=== PATIENT | male | born 1985 | race Caucasian/White ===

== ENCOUNTER 2017-09-07 12:22 | Inpatient (IN) | payer OTHER, MEDICAID ==
[2017-09-07] MEDS: diphenhydrAMINE INJ 50MG/ML VIAL (J1200) IM (12:41)
[2017-09-07] MEDS: HALOPERIDOL 5 MG/ML VIAL (J1630) IM (12:42)
[2017-09-07] MEDS: LORazepam 2 MG/ML VIAL (J2060) IM (12:42)
[2017-09-07 13:39] LABS: HEMATOCRIT 41.8 % (42.0-52.0); HEMOGLOBIN 14.6 g/dl (14.0-18.0); MEAN CORPUSCULAR HEMOGLOBIN 28.7 pg (27.0-33.0); MEAN CORPUSCULAR HGB CONC 34.9 g/dl (32.0-36.5); MEAN CORPUSCULAR VOLUME 82.3 fl (80.0-96.0); PLATELET COUNT, AUTOMATED 225 10^3/uL (150-450); RED BLOOD COUNT 5.08 10^6/uL (4.30-6.10); WHITE BLOOD COUNT 9.6 10^3/uL (4.0-10.0)
[2017-09-07 14:11] LABS: ACETAMINOPHEN LEVEL < 2.0 UG/ML (10.0-30.0); ALBUMIN/GLOBULIN RATIO 1.33 (1.00-1.93); ALKALINE PHOSPHATASE 56 U/L (45-117); ALT/SGPT 15 U/L (12-78); ANION GAP 7 MEQ/L (8-16); AST/SGOT 14 U/L (7-37); BILIRUBIN,DIRECT 0.1 MG/DL (0.0-0.2); BILIRUBIN,TOTAL 0.5 MG/DL (0.2-1.0); BLOOD UREA NITROGEN 14 MG/DL (7-18); CALCIUM LEVEL 8.3 MG/DL (8.5-10.1); CARBON DIOXIDE LEVEL 25 MEQ/L (21-32); CHLORIDE LEVEL 111 MEQ/L (98-107); CREATININE FOR GFR 0.65 MG/DL (0.70-1.30); ETHYL ALCOHOL (ETHANOL) 0.003 % (0.000-0.010); GLOMERULAR FILTRATION RATE > 60.0 (>60); GLUCOSE, FASTING 94 MG/DL (70-100); POTASSIUM SERUM 3.7 MEQ/L (3.5-5.1); SODIUM LEVEL 143 MEQ/L (136-145); THYROID STIMULATING HORMONE 0.843 uIU/ML (0.358-3.740)
[2017-09-07 14:51] LABS: AMPHETAMINES LEVEL URINE NEGATIVE (NEGATIVE); BARBITURATES URINE NEGATIVE (NEGATIVE); BENZODIAZEPINES URINE NEGATIVE (NEGATIVE); CANNABINOIDS URINE POSITIVE (NEGATIVE); COCAINE METABOLITE URINE NEGATIVE (NEGATIVE); METHADONE URINE NEGATIVE (NEGATIVE); OPIATES URINE NEGATIVE (NEGATIVE); PHENCYCLIDINE URINE NEGATIVE (NEGATIVE)
[2017-09-07] MEDS ORDERED: MOM 30ML SUSPENSION UDC PO (15:00)
[2017-09-07] MEDS ORDERED: MAALOX 30 ML SUSP *UDC PO (15:00)
[2017-09-07] MEDS: diphenhydrAMINE 50 MG CAP PO (16:50)
[2017-09-07] MEDS: LORazepam 1 MG TAB PO (21:19)
[2017-09-07] MEDS: HALOPERIDOL 5 MG TAB PO (21:19)
[2017-09-07] MEDS: diphenhydrAMINE 25 MG CAP PO (21:19)
[2017-09-08] MEDS: PALIPERIDONE 3 MG ER TAB (INVEGA) PO ×2 (09:00→21:00)
[2017-09-08] MEDS: BENZTROPINE 1 MG TAB PO ×2 (09:00→21:00)
[2017-09-08] MEDS: LORazepam 2 MG/ML VIAL (J2060) IM (12:15)
[2017-09-08] MEDS: OLANZapine INTRAMUSCULAR 10 MG VIAL (S0166) IM (12:19)
[2017-09-08] MEDS: diphenhydrAMINE INJ 50MG/ML VIAL (J1200) IM (12:20)
[2017-09-09 08:18] LABS: CHOLESTEROL LEVEL 157 MG/DL (<200); CHOLESTEROL RISK RATIO 5.413 (<5); HDL CHOLESTEROL 29 MG/DL (>40); NON-HDL-C 128 MG/DL; TRIGLYCERIDES LEVEL 85 MG/DL (<150)
[2017-09-09] MEDS: BENZTROPINE 1 MG TAB PO ×2 (08:42→21:00)
[2017-09-09] MEDS: PALIPERIDONE 3 MG ER TAB (INVEGA) PO (08:42)
[2017-09-09] MEDS: ARIPiprazole 10 MG TAB PO ×2 (10:47→21:00)
[2017-09-09] MEDS: ARIPiprazole MONOHYDRATE 400 MG INJ (ABILIFY)(J0401) IM (11:22)
[2017-09-09] MEDS: LORazepam 2 MG TAB PO (14:37)
[2017-09-09] MEDS: NICOTINE 21MG/24HR 1 EA TRANSDERMAL TD (17:57)
[2017-09-10] MEDS: BENZTROPINE 1 MG TAB PO ×2 (09:00→21:00)
[2017-09-10] MEDS ORDERED: NICOTINE 21MG/24HR 1 EA TRANSDERMAL TD (09:00)
[2017-09-10] MEDS: NICOTINE 21MG/24HR 1 EA TRANSDERMAL TD (10:12)
[2017-09-10] MEDS: ARIPiprazole 10 MG TAB PO ×2 (10:12→21:36)
[2017-09-10] MEDS: traZODone 50 MG TAB PO (21:36)
[2017-09-11] MEDS: ARIPiprazole 10 MG TAB PO ×2 (08:28→20:32)
[2017-09-11] MEDS: NICOTINE 21MG/24HR 1 EA TRANSDERMAL TD (08:29)
[2017-09-11] MEDS: BENZTROPINE 1 MG TAB PO ×2 (08:30→21:00)
[2017-09-11] MEDS: traZODone 50 MG TAB PO (20:32)
[2017-09-12] MEDS: ARIPiprazole 10 MG TAB PO ×2 (08:27→22:05)
[2017-09-12] MEDS: NICOTINE 21MG/24HR 1 EA TRANSDERMAL TD (08:27)
[2017-09-12] MEDS: BENZTROPINE 1 MG TAB PO ×2 (08:28→21:00)
[2017-09-13] MEDS: BENZTROPINE 1 MG TAB PO ×2 (09:00→21:00)
[2017-09-13] MEDS: NICOTINE 21MG/24HR 1 EA TRANSDERMAL TD (09:17)
[2017-09-13] MEDS: ARIPiprazole 10 MG TAB PO ×2 (09:17→21:24)
[2017-09-13] MEDS: LORazepam 2 MG TAB PO (09:30)
[2017-09-13] MEDS: OLANZapine 10 MG TAB PO (09:30)
[2017-09-14] MEDS: BENZTROPINE 1 MG TAB PO ×2 (08:59→21:00)
[2017-09-14] MEDS: ARIPiprazole 10 MG TAB PO ×2 (09:00→22:08)
[2017-09-14] MEDS ORDERED: **PENDING PPD ENTRY XX (09:00)
[2017-09-14] MEDS: NICOTINE 21MG/24HR 1 EA TRANSDERMAL TD (09:01)
[2017-09-14] MEDS ORDERED: TUBERCULIN PPD 5 UNITS/0.1 ML ID (12:30)
[2017-09-14] MEDS: OLANZapine 10 MG TAB PO (22:07)
[2017-09-15] MEDS: ARIPiprazole 10 MG TAB PO ×2 (10:00→21:00)
[2017-09-15] MEDS: NICOTINE 21MG/24HR 1 EA TRANSDERMAL TD (10:01)
[2017-09-15] MEDS: BENZTROPINE 1 MG TAB PO ×2 (10:01→21:00)
[2017-09-15] MEDS: LORazepam 2 MG TAB PO (16:50)
[2017-09-15] MEDS: TUBERCULIN PPD 5 UNITS/0.1 ML ID (20:00)
[2017-09-15] MEDS: OLANZapine 10 MG TAB PO (21:00)
[2017-09-16] MEDS: NICOTINE 21MG/24HR 1 EA TRANSDERMAL TD (08:13)
[2017-09-16] MEDS: ARIPiprazole 10 MG TAB PO ×2 (08:13→20:06)
[2017-09-16] MEDS: LORazepam 2 MG TAB PO (08:13)
[2017-09-16] MEDS: BENZTROPINE 1 MG TAB PO ×2 (08:14→20:05)
[2017-09-16] MEDS ORDERED: PPD DOCUMENTATION ENTRY MISC XX (10:00)
[2017-09-16] MEDS ORDERED: OLANZapine 5 MG TAB PO (10:30)
[2017-09-16] MEDS: OLANZapine 10 MG TAB PO ×3 (12:00→21:47)
[2017-09-17] MEDS: ARIPiprazole 10 MG TAB PO ×2 (08:29→21:27)
[2017-09-17] MEDS: OLANZapine 10 MG TAB PO ×3 (08:29→21:26)
[2017-09-17] MEDS: NICOTINE 21MG/24HR 1 EA TRANSDERMAL TD (08:30)
[2017-09-17] MEDS: BENZTROPINE 1 MG TAB PO ×2 (09:00→21:00)
[2017-09-17] MEDS ORDERED: PPD DOCUMENTATION ENTRY MISC XX (20:00)
[2017-09-18] MEDS: ARIPiprazole 10 MG TAB PO (08:23)
[2017-09-18] MEDS: BENZTROPINE 1 MG TAB PO (08:24)
[2017-09-18] MEDS: NICOTINE 21MG/24HR 1 EA TRANSDERMAL TD (08:24)
[2017-09-18] MEDS: OLANZapine 10 MG TAB PO (10:14)
== END 2017-09-18 13:00 | disposition home or self-care (01) | DRG 750 ==
LOC: M ED 12:22 → M ED INP 14:49 → M PSY 16:20
DX: F20.0 Paranoid schizophrenia (principal); F41.9 Anxiety disorder, unspecified; F12.90 Cannabis use, unspecified, uncomplicated; F17.200 Nicotine dependence, unspecified, uncomplicated; Z79.899 Other long term (current) drug therapy

== ENCOUNTER 2017-12-25 10:11 | Inpatient (IN) | payer OTHER ==
[2017-12-25] MEDS: NICOTINE 21MG/24HR 1 EA TRANSDERMAL TD (09:00)
[2017-12-25] MEDS ORDERED: diphenhydrAMINE INJ 50MG/ML VIAL (J1200) As Ordered (10:15)
[2017-12-25] MEDS ORDERED: HALOPERIDOL 5 MG/ML VIAL (J1630) As Ordered (10:16)
[2017-12-25] MEDS: diphenhydrAMINE INJ 50MG/ML VIAL (J1200) IM (10:26)
[2017-12-25] MEDS: HALOPERIDOL 5 MG/ML VIAL (J1630) IM (10:26)
[2017-12-25 11:18] LABS: HEMATOCRIT 46.2 % (42.0-52.0); HEMOGLOBIN 16.3 g/dl (13.5-17.5); MEAN CORPUSCULAR HEMOGLOBIN 29.2 pg (27.0-33.0); MEAN CORPUSCULAR HGB CONC 35.3 g/dl (32.0-36.5); MEAN CORPUSCULAR VOLUME 82.8 fl (80.0-96.0); PLATELET COUNT, AUTOMATED 222 10^3/uL (150-450); RED BLOOD COUNT 5.58 10^6/uL (4.30-6.10); RED CELL DISTRIBUTION WIDTH 13.1 % (11.5-14.5); WHITE BLOOD COUNT 15.1 10^3/uL (4.0-10.0)
[2017-12-25] MEDS: LORazepam 2 MG TAB PO (11:20)
[2017-12-25 11:48] LABS: ALBUMIN 4.8 GM/DL (3.2-5.2); ALBUMIN/GLOBULIN RATIO 1.41 (1.00-1.93); ALKALINE PHOSPHATASE 57 U/L (45-117); ALT/SGPT 24 U/L (12-78); ANION GAP 10 MEQ/L (8-16); AST/SGOT 14 U/L (7-37); BILIRUBIN,DIRECT 0.2 MG/DL (0.0-0.2); BILIRUBIN,TOTAL 0.7 MG/DL (0.2-1.0); BLOOD UREA NITROGEN 15 MG/DL (7-18); CALCIUM LEVEL 8.8 MG/DL (8.5-10.1); CARBON DIOXIDE LEVEL 22 MEQ/L (21-32); CHLORIDE LEVEL 108 MEQ/L (98-107); CREATININE FOR GFR 0.94 MG/DL (0.70-1.30); GLOMERULAR FILTRATION RATE > 60.0 (>60); GLUCOSE, FASTING 103 MG/DL (70-100); POTASSIUM SERUM 4.1 MEQ/L (3.5-5.1); SALICYLATE LEVEL < 1.7 MG/DL (5.0-30.0); SODIUM LEVEL 140 MEQ/L (136-145); TOTAL PROTEIN 8.2 GM/DL (6.4-8.2)
[2017-12-25 11:49] LABS: ACETAMINOPHEN LEVEL < 2.0 UG/ML (10.0-30.0); ETHYL ALCOHOL (ETHANOL) < 0.003 % (0.000-0.010)
[2017-12-25 12:09] LABS: AMPHETAMINES LEVEL URINE NEGATIVE (NEGATIVE); BARBITURATES URINE NEGATIVE (NEGATIVE); BENZODIAZEPINES URINE NEGATIVE (NEGATIVE); CANNABINOIDS URINE POSITIVE (NEGATIVE); COCAINE METABOLITE URINE NEGATIVE (NEGATIVE); METHADONE URINE NEGATIVE (NEGATIVE); OPIATES URINE NEGATIVE (NEGATIVE); PHENCYCLIDINE URINE NEGATIVE (NEGATIVE)
[2017-12-25] MEDS ORDERED: MOM 30ML SUSPENSION UDC PO (15:45)
[2017-12-25] MEDS ORDERED: MAALOX 30 ML SUSP *UDC PO (15:45)
[2017-12-25] MEDS ORDERED: ACETAMINOPHEN TAB 650MG DOSE (2X325MG) PO (15:45)
[2017-12-26] MEDS: LORazepam 1 MG TAB PO ×2 (07:57→18:11)
[2017-12-26] MEDS: NICOTINE 21MG/24HR 1 EA TRANSDERMAL TD (07:57)
[2017-12-26] MEDS: OLANZapine ORAL DISINTEGRATING TAB 5MG PO ×2 (07:57→18:11)
[2017-12-26] MEDS: ATOMOXETINE HCL 40 MG CAP (STRATTERA) PO (19:11)
[2017-12-27] MEDS: ATOMOXETINE HCL 40 MG CAP (STRATTERA) PO (08:03)
[2017-12-27] MEDS: NICOTINE 21MG/24HR 1 EA TRANSDERMAL TD (08:03)
[2017-12-27] MEDS: OLANZapine ORAL DISINTEGRATING TAB 5MG PO ×2 (09:10→12:25)
[2017-12-27] MEDS: LORazepam 1 MG TAB PO (12:12)
[2017-12-28 06:55] LABS: BASO # 0.1 10^3/uL (0.0-0.2); BASO % 0.6 % (0.0-1.0); EOS # 0.4 10^3/uL (0.0-0.50); EOS % 5.3 % (0.0-3.0); HEMATOCRIT 43.2 % (42.0-52.0); HEMOGLOBIN 15.3 g/dl (13.5-17.5); IMMATURE GRANULOCYTE % 0.1 % (0-3.0); LYMPH # 2.6 10^3/uL (1.5-4.5); LYMPH % 34.2 % (24.0-44.0); MEAN CORPUSCULAR HEMOGLOBIN 29.3 pg (27.0-33.0); MEAN CORPUSCULAR HGB CONC 35.4 g/dl (32.0-36.5); MEAN CORPUSCULAR VOLUME 82.8 fl (80.0-96.0); MONO # 0.6 10^3/uL (0.0-0.8); NEUTROPHILS % 51.8 % (36.0-66.0); PLATELET COUNT, AUTOMATED 226 10^3/uL (150-450); RED BLOOD COUNT 5.22 10^6/uL (4.30-6.10); RED CELL DISTRIBUTION WIDTH 12.9 % (11.5-14.5); WHITE BLOOD COUNT 7.7 10^3/uL (4.0-10.0)
[2017-12-28] MEDS: NICOTINE 21MG/24HR 1 EA TRANSDERMAL TD (08:18)
[2017-12-28] MEDS: ATOMOXETINE HCL 40 MG CAP (STRATTERA) PO (08:18)
[2017-12-28] MEDS: ARIPiprazole MONOHYDRATE 400 MG INJ (ABILIFY)(J0401) IM (12:13)
[2017-12-28] MEDS: OLANZapine ORAL DISINTEGRATING TAB 5MG PO (19:27)
[2017-12-28] MEDS: LORazepam 1 MG TAB PO (19:27)
[2017-12-29] MEDS: ATOMOXETINE HCL 40 MG CAP (STRATTERA) PO (08:10)
[2017-12-29] MEDS: NICOTINE 21MG/24HR 1 EA TRANSDERMAL TD (08:10)
[2017-12-29] MEDS: LORazepam 1 MG TAB PO (08:38)
== END 2017-12-29 10:00 | disposition home or self-care (01) | DRG 750 ==
LOC: M ED 10:11 → M ED INP 12:35 → M PSY 14:38
DX: F25.0 Schizoaffective disorder, bipolar type (principal); Z91.19 Patient's noncompliance with other medical treatment and regimen; E78.5 Hyperlipidemia, unspecified; F12.10 Cannabis abuse, uncomplicated; F17.220 Nicotine dependence, chewing tobacco, uncomplicated; Z79.899 Other long term (current) drug therapy

== ENCOUNTER 2018-03-15 23:16 | Inpatient (IN) | payer OTHER ==
[2018-03-16 02:22] LABS: HEMATOCRIT 45.6 % (42.0-52.0); HEMOGLOBIN 15.8 g/dl (13.5-17.5); MEAN CORPUSCULAR HEMOGLOBIN 29.5 pg (27.0-33.0); MEAN CORPUSCULAR HGB CONC 34.6 g/dl (32.0-36.5); MEAN CORPUSCULAR VOLUME 85.1 fl (80.0-96.0); PLATELET COUNT, AUTOMATED 237 10^3/uL (150-450); RED BLOOD COUNT 5.36 10^6/uL (4.30-6.10); RED CELL DISTRIBUTION WIDTH 12.5 % (11.5-14.5)
[2018-03-16 02:44] LABS: AMPHETAMINES LEVEL URINE NEGATIVE (NEGATIVE); BARBITURATES URINE NEGATIVE (NEGATIVE); BENZODIAZEPINES URINE NEGATIVE (NEGATIVE); CANNABINOIDS URINE POSITIVE (NEGATIVE); COCAINE METABOLITE URINE NEGATIVE (NEGATIVE); METHADONE URINE NEGATIVE (NEGATIVE); OPIATES URINE NEGATIVE (NEGATIVE); PHENCYCLIDINE URINE NEGATIVE (NEGATIVE)
[2018-03-16] MEDS: LORazepam 0.5 MG TAB PO (02:45)
[2018-03-16 02:53] LABS: ALBUMIN 4.4 GM/DL (3.2-5.2); ALBUMIN/GLOBULIN RATIO 1.38 (1.00-1.93); ALKALINE PHOSPHATASE 54 U/L (45-117); ALT/SGPT 19 U/L (12-78); ANION GAP 8 MEQ/L (8-16); AST/SGOT 12 U/L (7-37); BILIRUBIN,DIRECT 0.1 MG/DL (0.0-0.2); BILIRUBIN,TOTAL 0.6 MG/DL (0.2-1.0); BLOOD UREA NITROGEN 10 MG/DL (7-18); CALCIUM LEVEL 8.6 MG/DL (8.5-10.1); CARBON DIOXIDE LEVEL 29 MEQ/L (21-32); CHLORIDE LEVEL 108 MEQ/L (98-107); CREATININE FOR GFR 0.81 MG/DL (0.70-1.30); GLOMERULAR FILTRATION RATE > 60.0 (>60); GLUCOSE, FASTING 92 MG/DL (70-100); POTASSIUM SERUM 4.1 MEQ/L (3.5-5.1); SALICYLATE LEVEL < 1.7 MG/DL (5.0-30.0); SODIUM LEVEL 145 MEQ/L (136-145); TOTAL PROTEIN 7.6 GM/DL (6.4-8.2)
[2018-03-16 02:54] LABS: ACETAMINOPHEN LEVEL < 2.0 UG/ML (10.0-30.0); ETHYL ALCOHOL (ETHANOL) < 0.003 % (0.000-0.010)
[2018-03-16] MEDS ORDERED: LORazepam 1 MG TAB As Ordered (02:58)
[2018-03-16] MEDS ORDERED: MAALOX 30 ML SUSP *UDC PO (03:15)
[2018-03-16] MEDS ORDERED: MOM 30ML SUSPENSION UDC PO (03:15)
[2018-03-16] MEDS ORDERED: ACETAMINOPHEN TAB 650MG DOSE (2X325MG) PO (03:15)
[2018-03-16] MEDS: NICOTINE 21MG/24HR 1 EA TRANSDERMAL TD (10:26)
[2018-03-16] MEDS: OLANZapine ORAL DISINTEGRATING TAB 5MG PO ×3 (12:04→21:00)
[2018-03-17 06:43] LABS: HEMATOCRIT 45.3 % (42.0-52.0); HEMOGLOBIN 15.9 g/dl (13.5-17.5); MEAN CORPUSCULAR HEMOGLOBIN 29.7 pg (27.0-33.0); MEAN CORPUSCULAR HGB CONC 35.1 g/dl (32.0-36.5); MEAN CORPUSCULAR VOLUME 84.7 fl (80.0-96.0); PLATELET COUNT, AUTOMATED 243 10^3/uL (150-450); RED BLOOD COUNT 5.35 10^6/uL (4.30-6.10); RED CELL DISTRIBUTION WIDTH 12.7 % (11.5-14.5); WHITE BLOOD COUNT 8.5 10^3/uL (4.0-10.0)
[2018-03-17] MEDS: OLANZapine ORAL DISINTEGRATING TAB 5MG PO ×4 (09:00→21:00)
[2018-03-17] MEDS: NICOTINE 21MG/24HR 1 EA TRANSDERMAL TD (09:08)
[2018-03-17] MEDS: traZODone 50 MG TAB PO (23:42)
[2018-03-18] MEDS: NICOTINE 21MG/24HR 1 EA TRANSDERMAL TD (08:01)
[2018-03-18] MEDS: OLANZapine ORAL DISINTEGRATING TAB 5MG PO ×4 (08:49→21:00)
[2018-03-19] MEDS: NICOTINE 21MG/24HR 1 EA TRANSDERMAL TD (08:29)
[2018-03-19] MEDS: OLANZapine ORAL DISINTEGRATING TAB 5MG PO ×2 (08:30→12:23)
[2018-03-19] MEDS: ATOMOXETINE HCL 40 MG CAP (STRATTERA) PO (15:22)
[2018-03-19] MEDS: traZODone 50 MG TAB PO (22:22)
[2018-03-20] MEDS: NICOTINE 21MG/24HR 1 EA TRANSDERMAL TD (07:53)
[2018-03-20] MEDS: ATOMOXETINE HCL 40 MG CAP (STRATTERA) PO (07:53)
[2018-03-20] MEDS: traZODone 50 MG TAB PO (20:18)
[2018-03-20] MEDS: LORazepam 2 MG TAB PO (21:32)
[2018-03-21] MEDS: NICOTINE 21MG/24HR 1 EA TRANSDERMAL TD (10:31)
[2018-03-21] MEDS: ATOMOXETINE HCL 40 MG CAP (STRATTERA) PO (10:31)
[2018-03-21] MEDS: LORazepam 2 MG TAB PO ×2 (12:02→19:27)
[2018-03-21] MEDS: traZODone 50 MG TAB PO (21:00)
[2018-03-22] MEDS: NICOTINE 21MG/24HR 1 EA TRANSDERMAL TD (08:32)
[2018-03-22] MEDS: ATOMOXETINE HCL 40 MG CAP (STRATTERA) PO (08:32)
[2018-03-22] MEDS: LORazepam 2 MG TAB PO (15:28)
[2018-03-22] MEDS: traZODone 50 MG TAB PO (23:05)
[2018-03-23] MEDS: ATOMOXETINE HCL 40 MG CAP (STRATTERA) PO (08:13)
[2018-03-23] MEDS: NICOTINE 21MG/24HR 1 EA TRANSDERMAL TD (08:14)
[2018-03-23] MEDS: LORazepam 2 MG TAB PO (08:33)
== END 2018-03-23 15:00 | disposition home or self-care (01) | DRG 750 ==
LOC: M ED 23:16 → M ED INP 03-16 03:13 → M PSY 03-16 04:00
DX: F25.0 Schizoaffective disorder, bipolar type (principal); F17.200 Nicotine dependence, unspecified, uncomplicated; D72.829 Elevated white blood cell count, unspecified; E78.5 Hyperlipidemia, unspecified; F12.90 Cannabis use, unspecified, uncomplicated

== ENCOUNTER 2018-11-14 15:14 | Inpatient (IN) | payer OTHER ==
[~2018-11-14] VITALS: Ht 180.3 cm; Wt 85.1 kg
[~2018-11-14 15:14] MED LIST: ABIL30TA4 PO; ABIL400I IM; ATOM40CA PO; BENZ-52 PO; COGE1INJ PO; DEPA500T OR; DEPA500T2 PO; GEOD40CA13 PO; OLAN5ZYD PO; RISP2TAB32 PO; RISP3TAB16 OR; STRA10CA PO; TRAZ-160 PO; ZYPR10TA PO; ZYPR2.5T2 PO; [UNRECOGNIZED DRUG - REMARK]
[2018-11-14 16:26] LABS: HEMATOCRIT 44.7 % (42.0-52.0); HEMOGLOBIN 15.3 g/dl (13.5-17.5); MEAN CORPUSCULAR HEMOGLOBIN 28.8 pg (27.0-33.0); MEAN CORPUSCULAR HGB CONC 34.2 g/dl (32.0-36.5); MEAN CORPUSCULAR VOLUME 84.2 fl (80.0-96.0); PLATELET COUNT, AUTOMATED 232 10^3/uL (150-450); RED BLOOD COUNT 5.31 10^6/uL (4.30-6.10); WHITE BLOOD COUNT 10.7 10^3/uL (4.0-10.0)
[2018-11-14 16:58] LABS: ACETAMINOPHEN LEVEL < 2.0 UG/ML (10.0-30.0); ALBUMIN 4.4 GM/DL (3.2-5.2); ALT/SGPT 18 U/L (12-78); AMPHETAMINES LEVEL URINE NEGATIVE (NEGATIVE); BARBITURATES URINE NEGATIVE (NEGATIVE); BENZODIAZEPINES URINE NEGATIVE (NEGATIVE); BILIRUBIN,DIRECT < 0.1 MG/DL (0.0-0.2); BILIRUBIN,TOTAL 0.5 MG/DL (0.2-1.0); BLOOD UREA NITROGEN 13 MG/DL (7-18); CALCIUM LEVEL 8.2 MG/DL (8.5-10.1); CANNABINOIDS URINE POSITIVE (NEGATIVE); CARBON DIOXIDE LEVEL 26 MEQ/L (21-32); CHLORIDE LEVEL 108 MEQ/L (98-107); COCAINE METABOLITE URINE NEGATIVE (NEGATIVE); CREATININE FOR GFR 0.76 MG/DL (0.70-1.30); ETHYL ALCOHOL (ETHANOL) < 0.003 % (0.000-0.010); GLOMERULAR FILTRATION RATE > 60.0 (>60); GLUCOSE, FASTING 91 MG/DL (70-100); METHADONE URINE NEGATIVE (NEGATIVE); OPIATES URINE NEGATIVE (NEGATIVE); PHENCYCLIDINE URINE NEGATIVE (NEGATIVE); POTASSIUM SERUM 3.7 MEQ/L (3.5-5.1); SALICYLATE LEVEL < 1.7 MG/DL (5.0-30.0); SODIUM LEVEL 143 MEQ/L (136-145); TOTAL PROTEIN 7.3 GM/DL (6.4-8.2)
[2018-11-14] MEDS ORDERED: clonazePAM 1 MG TAB PO ONE (19:15)
[2018-11-15] MEDS ORDERED: clonazePAM 1 MG TAB PO ONE ×2 (06:00→10:30)
[2018-11-15] MEDS ORDERED: MAALOX 30 ML SUSP *UDC PO PRN (14:30)
[2018-11-15] MEDS ORDERED: OLANZapine ORAL DISINTEGRATING TAB 5MG PO PRN (14:30)
[2018-11-15] MEDS ORDERED: MOM 30ML SUSPENSION UDC PO PRN (14:30)
[2018-11-15] MEDS ORDERED: ACETAMINOPHEN TAB 650MG DOSE (2X325MG) PO PRN (14:30)
[2018-11-15] MEDS ORDERED: ARISTADA IM (16:26)
[2018-11-15 16:36] VITALS: BP 142/77
[2018-11-15] MEDS: LORazepam 2 MG TAB PO PRN (16:47)
[2018-11-15] MEDS: QUEtiapine FUMARATE 50 MG TAB PO SCH (21:00)
[2018-11-16 06:38] VITALS: BP 137/74
[2018-11-16] MEDS: NICOTINE 7 MG/24 HR TRANSDERMAL TD SCH (08:18)
[2018-11-16] MEDS: LORazepam 2 MG TAB PO PRN (08:18)
[2018-11-16] MEDS: **PENDING PPD ENTRY XX SCH (09:00)
--- NOTE | 2018-11-16 13:02 | MHHPEPDOC ---
General Date Of Admission: Nov 15, 2018 Legal Status: 9.39 Chief Complaint "There are two many red, white, and blue cars... it's a gov't conspiracy." History of Present Illness HISTORY OF THE PRESENT ILLNESS: Patient is a 33 -year-old , male, with a history of paranoid schizophrenia, noncompliance medications and follow-up, multiple admits [facility] for psychosis who was brought to Ed by PD after a woman called them for help due to pt following her home in his car b/c she drove a red vehicle and threatening to slash her tires with a screwdriver. Pt was found by police in his car showing off a screwdriver in a threatening manor to passers by. Pt attempted to drive off from police but caught quickly when blocked off by 2 police cars. Pt told police he was following the woman b/c she was threatening and following him. Also stated she drove a red car and it was part of a gov't conspiracy b/c there are too many red, white, and blue cars for [place] which is a poor community. Pt in the ED endorsing gov't conspiracy as stated previously and that they were listening devices in nonspecific places. Pt endorsed paranoia regarding muslim and physicians in the ED due to physicians believing he needs antipsychotics when he thinks he needs adderall (this is not new to the pt). Is noncompliant with medications (1mo) and follow- up. Fires physicians that think he needs antipsychotics. Psychiatric Review of Systems Depression (2 or more weeks): denies Lise (4 or more days of): irritable/elevated mood, grandiosity, talkativity, pressured, engages in risky behavior Psychosis: auditory hallucination, delusions, paranoia, disorganization Anxiety: situational anxiety, stressor related anxiety Anxiety/ 6 months or more of: restlessness, keyed up, difficulty concentrating, irritability Past Psychiatric History Previous Psychiatric Diagnosis: Paranoid Schizophrenia. Previous Psychiatric Admissions: roughly 7, 4 in 2018 to [facility] with last 03/23/18 Suicide Attempts: denies. Psychiatric Follow-up: Dr. Vega, noncompliant, [facility] noncompliant, fired old PCP b/c they thought he needed antipsychotics and has new PCP appt 11/27 Psychiatric medications: noncompliant. Past Medical History Medical Problems denies Head Injury: No Seizures: No Hospitalizations: No Surgeries: No Family Medical/Psychiatric HX Medical Problems noncontributory Psychiatric Disorders: No Addiction: No Suicide Attemps/Completions: No Addiction History nicotine, other (u tox positive cannabis, uses daily) Social History Childhood: born and raised [place], [place]. 2 Parent home, good childhood, father is very supportive. Abuse/Trauma:unknown. Current Living Situation: lives with girlfriend and 3mo old son Education: high school diploma and bachelor's in business Employment: SSD[employer]. Social Support: father. Legal: none known. Marital: single, never but states he has a girlfriend and they have a 3mo old son together Mental Status Examination General Appearance: well groomed, appears stated age, hospital scubs/clothing Build: average Demeanor: hostile, mistrustful, preoccupied, guarded, very figety Eye Contact: intense Activity: agitated, anxious, hostile Behavior: uncooperative, agitated, aggressive (verbally), restless Speech: clear, other (loud) Mood: anxious, angry, irritable Mood I don't hear voices so I don't need antipsychotics Affect: inappropriate, labile, anxious, hostile, disorganized Thought Process: concrete, tangential, associative, flight of ideas Thought Content (Delusions): grandiose, bizarre, denies SI, HI, AVH, paranoia, delusions, other ("I saw bizarre things") Thought Content (Other): preoccupied, obsessional, guarded, internal-stimuli, appears paranoid Thought Content (Aggressive): aggressive (assess) (verbally) Perception (Hallucinations): auditory, visual Perception (Other): none reported Cognition (Impairment of): attention/concentration, ability to abstract Cognition(Intelligence Est.): average Oriented: Awake, Alert, Oriented times three Insight: poor Judgment: Poor Psychosis: Associations, Abstract Thinking, Psychotic Perceptions Diagnoses paranoid schizophrenia cannabis use d/o Assessment Pt seen and states "there's a group of people that know things... [place] and there are cars that make sharp turns like the planes in [place] with blue and white lights so I parked on a corner and too many red, white, and blue cars drove by so I showed by screwdriver to them." "My dad didn't agree with me the hip-hop was part of my diagnosis when it is." States his father is his payee over his disability and it makes him feel like a caged animal with no control, phone, internet. Wants adderall. States he has a felter tennis balls on him that allows red, white, and blue cars find him then started talking [place]. Pt refusing antipsychotics. Gets anxious and verbally loud and anxious due to me not agreeing with his illogical thoughts and recommending antipsychotic medications. Initial Treatment Plan 1. Patient was admitted on a 9.39 status. 2. Complete history was obtained. 3. With patients permission, family will be contacted and database will be expanded. 4. Patients medication regimen will be reviewed and changed accordingly. 5. Patient will be provided with protected environment. 6. Patient will be treated with individual, group, and milieu therapies. 7. Patient will receive supportive psych-education. 8. Discharge planning will commence immediately. 9. Outpatient follow-up treatment will be strongly recommended. 10. The initial treatment plan will focus initially on: * Depression. * Risk for suicide. * Substance abuse. 11. invega 3mg bid, zyprexa 10mg q4hr prn anxiety/agitation, d/c ativan as pt attempting to use in place of antipsychotic when needs antipsychotic, benadryl 50mg q4hr prn anxiety/agitation ESTIMATED LENGTH OF STAY: 7-9 DAYS. TIME SPENT COUNSELING AND COORDINATING INITIAL CARE: 60 minutes. Vital Signs Vital Signs Date Time Temp Pulse Resp B/P (MAP) Pulse Ox O2 Delivery O2 Flow Rate FiO2 11/16/18 06:38 97.6 62 20 137/74 (95) 11/15/18 15:51 98 Room Air Medications Scheduled [[place]] , 1,064 MG IM [id number] for PSYCHOSIS, (Reported) Allergies Coded Allergies: No Known Allergies (Verified , 03/18/12) DEMARCUS PÉREZ DO Nov 16, 2018 1:00 pm
[2018-11-16] MEDS ORDERED: TUBERCULIN PPD 5 UNITS/0.1 ML ID ONE (13:30)
[2018-11-16] MEDS: PALIPERIDONE 3 MG ER TAB (INVEGA) PO SCH ×2 (13:43→20:38)
[2018-11-16] MEDS: diphenhydrAMINE 50 MG CAP PO PRN ×2 (13:47→19:17)
[2018-11-16 18:00] VITALS: BP 124/76
--- NOTE | 2018-11-16 18:00 | HPEPDOC ---
[facility] Medical History & Physical Date of Admission Nov 16, 2018 History and Physical PCP: Dr. Alma Vega HPI: 33yoM admitted to [facility] for paranoid schizophrenia medical noncompliance psychosis. The patient is very tangential and has rambling speech. Denies any fevers, chills, weakness, fatigue, VILA, CP, SOB, cough, palpitations, abdominal pain, N/V/D or changes in bowel or bladder habits. PMHx: Anxiety Depression Schizophrenia Schizoaffective disorder Psychosis History of dyslipidemia PSHX: Denies SOCHX: From: [place]. Lives alone down the street from his parents Marital Status: Has a girlfriend Kids: 3-month-old child Employment: Unemployed ETOH: One to 2 drinks per week Smokin can chewing tobacco per day Illicit Drugs: Marijuana occasionally when he is able to sneak up past his girlfriend. States used cocaine in the past but not recently IV Drug Use: Denies Tattoos done unprofessionally: Denies FAMHX: Mother: Alive, history of skin cancer Father: Alive, Unknown Siblings: Alive, well Unexpected deaths due to medical reasons: As per record, one cousin completed suicide and one cousin related to drug overdose. ROS: As noted in HPI, otherwise 10pt ROS of systems reviewed and unremarkable. PE: GEN: 33 yoM, appears stated age. Disheveled malodorous diaphoretic. No acute distress. Alert and oriented x 3. Tangential, rambling speech. HEENT: Normocephalic, atraumatic. Pupils equal round reactive to light. Extraocular movements are intact. No nystagmus appreciated. Sclera nonicteric. Conjunctiva without injection. Nose midline. Moist mucous membranes. Dentition fair. Pharynx pink and moist. Neck supple, trachea midline. No lymphadenopathy or thyromegaly appreciated. CHEST: Regular rate and rhythm, +S1, +S2 LUNGS: Clear to auscultation bilaterally. No wheezes, rales, or rhonchi. Breathing appears symmetric and easy. Patient is speaking in full sentences. No accessory muscle use. ABD: Round, soft, non-tender, non-distended. +Bowel sounds throughout. No rebound or guarding. No costovertebral angle tenderness. EXT: Pulses 2+ bilaterally dorsalis pedis and radial. No lower extremity edema appreciated. SKIN: [place], dry, warm. Capillary refill <2sec. No rashes. NEURO: Alert and oriented x 3. No focal deficits appreciated. EKG: pending A&P:33yoM admitted to [facility] for paranoid schizophrenia 1. Psych. Plan per Psychiatry. EKG pending. 2. Nicotine dependence. Patch 3. Leukocytosis. mild recheck in AM Patient is afebrile. Asymptomatic. Possible stress response. 4. Follow up with PCP at discharge. 5. Substance use. Management as per Psychiatry. 6. Male Staff member Ed present throughout exa Vital Signs Vital Signs Date Time Temp Pulse Resp B/P (MAP) Pulse Ox O2 Delivery O2 Flow Rate FiO2 11/16/18 06:38 97.6 62 20 137/74 (95) 11/15/18 15:51 98 Room Air Home Medications Scheduled [[facility]] , 1,064 MG IM [id number] for PSYCHOSIS Allergies Coded Allergies: No Known Allergies (Verified , 03/18/12) LARRY PEREZ MD Nov 16, 2018 18:00
[2018-11-16] MEDS: QUEtiapine FUMARATE 50 MG TAB PO SCH (20:38)
[2018-11-16] MEDS: OLANZapine ORAL DISINTEGRATING TAB 5MG PO PRN (20:43)
[2018-11-16] MEDS ORDERED: LORazepam 1 MG TAB PO PRN (22:15)
[2018-11-16] MEDS ORDERED: traZODone 50 MG TAB PO ONE (22:15)
[2018-11-17] VITALS (8 sets, daily range): BP systolic 124–163; BP diastolic 64–86
[2018-11-17 07:13] LABS: HEMATOCRIT 44.8 % (42.0-52.0); HEMOGLOBIN 15.2 g/dl (13.5-17.5); MEAN CORPUSCULAR HEMOGLOBIN 28.8 pg (27.0-33.0); MEAN CORPUSCULAR HGB CONC 33.9 g/dl (32.0-36.5); PLATELET COUNT, AUTOMATED 242 10^3/uL (150-450); RED BLOOD COUNT 5.27 10^6/uL (4.30-6.10); WHITE BLOOD COUNT 7.9 10^3/uL (4.0-10.0)
[2018-11-17] MEDS: **PENDING PPD ENTRY XX SCH (09:00)
[2018-11-17] MEDS: NICOTINE 7 MG/24 HR TRANSDERMAL TD SCH (09:00)
[2018-11-17] MEDS: PALIPERIDONE 3 MG ER TAB (INVEGA) PO SCH ×2 (09:36→21:12)
--- NOTE | 2018-11-17 10:42 | MHIPNPDOC ---
[facility] Progress Note Progress Note DATE OF SERVICE: 11/17/18 HISTORY: Patient is a 33 -year-old , male, with a history of paranoid schizophrenia, noncompliance medications and follow-up, multiple admits [facility] for psychosis who was brought to Ed by PD after a woman called them for help due to pt following her home in his car b/c she drove a red vehicle and threatening to slash her tires with a screwdriver. Pt was found by police in his car showing off a screwdriver in a threatening manor to passers by. Pt attempted to drive off from police but caught quickly when blocked off by 2 police cars. Pt told police he was following the woman b/c she was threatening and following him. Also stated she drove a red car and it was part of a gov't conspiracy b/c there are too many red, white, and blue cars for [place] which is a poor community. Pt in the ED endorsing gov't conspiracy as stated previously and that they were listening devices in nonspecific places. Pt endorsed paranoia regarding advent and physicians in the ED due to physicians believing he needs antipsychotics when he thinks he needs adderall (this is not new to the pt). Is noncompliant with medications (1mo) and follow-up. Fires physicians that think he needs antipsychotics. VITAL SIGNS: See below. NEW TEST RESULTS: See below. CURRENT MEDICATIONS: See below. MENTAL STATUS EXAMINATION:unable to assess as pt sleeping. Per yesterday's MSE: "General Appearance: well groomed, appears stated age, hospital scubs/clothing Build: average Demeanor: hostile, mistrustful, preoccupied, guarded, very figety Eye Contact: intense Activity: agitated, anxious, hostile Behavior: uncooperative, agitated, aggressive (verbally), restless Speech: clear, other (loud) Mood: anxious, angry, irritable Mood I don't hear voices so I don't need antipsychotics Affect: inappropriate, labile, anxious, hostile, disorganized Thought Process: concrete, tangential, associative, flight of ideas Thought Content (Delusions): grandiose, bizarre, denies SI, HI, AVH, paranoia, delusions, other ("I saw bizarre things") Thought Content (Other): preoccupied, obsessional, guarded, internal-stimuli, appears paranoid Thought Content (Aggressive): aggressive (assess) (verbally) Perception (Hallucinations): auditory, visual Perception (Other): none reported Cognition (Impairment of): attention/concentration, ability to abstract Cognition(Intelligence Est.): average Oriented: Awake, Alert, Oriented times three Insight: poor Judgment: Poor Psychosis: Associations, Abstract Thinking, Psychotic Perceptions" DIAGNOSES: paranoid schizophrenia cannabis use d/o ASSESSMENT:Attempted to see pt but asleep and left sleep due to level of verbal agitation and psychosis. Is compliant with invega and prn zyprexa. Per yesterday's note "Pt seen and states "there's a group of people that know things... [place] and there are cars that make sharp turns like the planes in [place] with blue and white lights so I parked on a corner and too many red, white, and blue cars drove by so I showed by screwdriver to them." "My dad didn't agree with me the hip-hop was part of my diagnosis when it is." States his father is his payee over his disability and it makes him feel like a caged animal with no control, phone, internet. Wants adderall. States he has a assembler carbon brushes on him that allows red, white, and blue cars find him then started talking [place]. Pt refusing antipsychotics. Gets anxious and verbally loud and anxious due to me not agreeing with his illogical thoughts and recommending antipsychotic medications." MANAGEMENT PLAN: continue plan. Per d/c planner/scheduler, pt's father has custody of the son. Medications: invega 3mg bid zyprexa 10mg q4hr prn anxiety/agitation benadryl 50mg q4hr prn anxiety/agitation TIME SPENT: 30 minutes. Vital Signs Vital Signs Date Time Temp Pulse Resp B/P (MAP) Pulse Ox O2 Delivery O2 Flow Rate FiO2 11/16/18 18:00 98.7 63 18 124/76 (92) 11/15/18 15:51 98 Room Air Laboratory Data 24H Labs Laboratory Tests 2 11/17/18 06:39: Nucleated Red Blood Cells % (auto) 0.0 CBC/BMP Laboratory Tests 11/17/18 06:39 Red Blood Count 5.27, Mean Corpuscular Volume 85.0, Mean Corpuscular Hemoglobin 28.8, Mean Corpuscular Hemoglobin Concent 33.9, Red Cell Distribution Width 13.0 Current Medications Current Medications Acetaminophen (Tylenol Tab) 650 mg Q6HP PRN PO HEADACHE or DISCOMFORT; Start 11/15/18 at 14:30 Al Hydrox/Mg Hydrox/Simethicone (Mylanta) 30 ml Q4HP PRN PO HEA RTBURN/INDIGESTION; Start 11/15/18 at 14:30 Diphenhydramine HCl (Benadryl) 50 mg Q4HP PRN PO ANXIETY/AGITATION Last administered on 11/16/18at 19:17; Start 11/16/18 at 13:15 Home Med (Med Rec Complete!) ASDIRECTED XX ; Start 11/15/18 at 12:45; Stop 11/15/18 at 12:49; Status DC Lorazepam (Ativan) 1 mg Q4HP PRN PO ANXIETY/AGITATION Last administered on 11/16/18at 22:23; Start 11/16/18 at 22:15; Stop 11/17/18 at 10:18; Status DC Lorazepam (Ativan) 2 mg Q6HP PRN PO ANXIETY/AGITATION Last administered on 11/16/18at 08:18; Start 11/15/18 at 16:45; Stop 11/16/18 at 13:05; Status DC Magnesium Hydroxide (Milk Of Magnesia) 30 ml DAILYPRN PRN PO CONSTIPATION; Start 11/15/18 at 14:30 Nicotine (Nicoderm Cq 7 Mg) 1 patch DAILY TD Last administered on 11/16/18at 08:18; Start 11/16/18 at 09:00 Non-Formulary Medication ( See Comment Field Below ) SEE COMMENTS SECTION 1T@10 XX ; Start 11/18/18 at 10:00; Stop 11/19/18 at 09:59; Status UNV Non-Formulary Medication ( See Comment Field Below ) SEE LABEL COMMENTS DAILY XX ; Start 11/16/18 at 09:00 Olanzapine (ZyPREXA ZYDIS) 5 mg Q4HP PRN PO AGITATION; Start 11/15/18 at 14:30; Status Cancel Olanzapine (ZyPREXA ZYDIS) 10 mg Q4HP PRN PO ANXIETY/AGITATION Last administered on 11/16/18at 20:43; Start 11/16/18 at 13:15 Paliperidone (Invega) 3 mg QAM PO Last administered on 11/17/18at 09:36; Start 11/16/18 at 13:00 Paliperidone (Invega) 3 mg QHS PO Last administered on 11/16/18at 20:38; Start 11/16/18 at 21:00 Quetiapine Fumarate (SEROquel) 50 mg QHS PO Last administered on 11/16/18at 20:38; Start 11/15/18 at 21:00 Allergies Coded Allergies: No Known Allergies (Verified , 03/18/12) DEMARCUS PÉREZ DO Nov 17, 2018 10:42 am
[2018-11-17] MEDS: OLANZapine ORAL DISINTEGRATING TAB 5MG PO PRN (15:48)
[2018-11-17] MEDS: QUEtiapine FUMARATE 50 MG TAB PO SCH (21:12)
[2018-11-17] MEDS ORDERED: LORazepam 2 MG/ML VIAL (J2060) IM STA ×3 (21:22→23:14)
[2018-11-17] MEDS ORDERED: HALOPERIDOL 5 MG/ML VIAL (J1630) IM STA ×3 (21:22→23:14)
[2018-11-17] MEDS ORDERED: diphenhydrAMINE INJ 50MG/ML VIAL (J1200) IM STA ×2 (21:22→21:34)
--- NOTE | 2018-11-17 21:59 | MHIR ---
General Date: Nov 17, 2018 Time Initiated: 21:22 Restraint Documentation Order/Evaluation FACE TO FACE: Yes PHYSICIAN ASSESSMENT: The patient was very paranoid about the medication he took tonight. He was complaining because we put Seroquel in his brain and that is mal practice. He started threatening staff, called them names, would not calm down, got very agitated. REASON FOR RESTRAINT: Patient poses imminent danger of harming self or others: Danger to other people, he is impulsive, he is angry, has paranoid thoughts, bizarre thoughts.Patient was dangerous to others, as he kept threatening staff, yelling DE-ESCALATION INTERVENTIONS ATTEMPTED BEFORE USE OF RESTRAINTS: Yes: re directing, support, PRN medications, etc. [MECHANICAL AND/OR CHEMICAL] RESTRAINTS USED: both LENGTH OF TIME ORDERED IN RESTRAINTS: 240 minutes. WHEN TO DISCONTINUE RESTRAINTS: When the patient is not longer a threat to others. Post evaluation of restraint due in 24 hours. JARAD PEARSON MD Nov 17, 2018 21:39
[2018-11-18 06:44] VITALS: BP 127/79
[2018-11-18] MEDS: **PENDING PPD ENTRY XX SCH (09:00)
[2018-11-18] MEDS: NICOTINE 7 MG/24 HR TRANSDERMAL TD SCH ×2 (09:00→13:21)
[2018-11-18] MEDS: PALIPERIDONE 3 MG ER TAB (INVEGA) PO SCH (09:35)
[2018-11-18] MEDS ORDERED: PPD DOCUMENTATION ENTRY MISC XX SCH (10:00)
--- NOTE | 2018-11-18 11:03 | MHPR ---
General Date: Nov 18, 2018 Time: 00:22 Post-Restraint Evaluation THE OUTCOME OF THE RESTRAINT:pt no longer agitated and threatening EFFECTIVENESS OF THE RESTRAINT: Mechanical and/or chemical: Positive. ANY EVIDENCE THAT THE PATIENT WAS AFFECTED EMOTIONALLY: no ANY NEED FOR COUNSELING/ASSISTANCE: no CHANGES IN TREATMENT PLAN: continue current treatment plan RECOMMENDATIONS FOR FUTURE INCIDENTS: continue current treatment plan DEMARCUS PÉREZ DO Nov 18, 2018 11:03 am
--- NOTE | 2018-11-18 11:17 | MHIPNPDOC ---
[facility] Progress Note Progress Note DATE OF SERVICE: 11/18/18 HISTORY: Patient is a 33 -year-old , male, with a history of paranoid schizophrenia, noncompliance medications and follow-up, multiple admits [facility] for psychosis who was brought to Ed by PD after a woman called them for help due to pt following her home in his car b/c she drove a red vehicle and threatening to slash her tires with a screwdriver. Pt was found by police in his car showing off a screwdriver in a threatening manor to passers by. Pt attempted to drive off from police but caught quickly when blocked off by 2 police cars. Pt told police he was following the woman b/c she was threatening and following him. Also stated she drove a red car and it was part of a gov't conspiracy b/c there are too many red, white, and blue cars for [place] which is a poor community. Pt in the ED endorsing gov't conspiracy as stated previously and that they were listening devices in nonspecific places. Pt endorsed paranoia regarding denominational and physicians in the ED due to physicians believing he needs antipsychotics when he thinks he needs adderall (this is not new to the pt). Is noncompliant with medications (1mo) and follow-up. Fires physicians that think he needs antipsychotics. VITAL SIGNS: See below. NEW TEST RESULTS: See below. CURRENT MEDICATIONS: See below. MENTAL STATUS EXAMINATION:unable to assess as pt sleeping. Per yesterday's MSE: "General Appearance: well groomed, appears stated age, hospital scubs/clothing Build: average Demeanor: hostile, mistrustful, preoccupied, guarded, very fidgety Eye Contact: intense Activity: agitated, anxious, hostile Behavior: uncooperative, agitated, aggressive (verbally), restless Speech: clear, other (loud) Mood: anxious, angry, irritable Mood I want a new diagnosis Affect: inappropriate, labile, anxious, hostile, disorganized Thought Process: concrete, tangential, associative, flight of ideas Thought Content (Delusions): grandiose, bizarre, denies SI, HI, AVH, paranoia, delusions, other ("cars doing things just to piss me off.") Thought Content (Other): preoccupied, obsessional, guarded, internal-stimuli, appears paranoid Thought Content (Aggressive): aggressive (assess) (verbally) Perception (Hallucinations): auditory, visual Perception (Other): none reported Cognition (Impairment of): attention/concentration, ability to abstract Cognition(Intelligence Est.): average Oriented: Awake, Alert, Oriented times three Insight: poor Judgment: Poor Psychosis: Associations, Abstract Thinking, Psychotic Perceptions" DIAGNOSES: paranoid schizophrenia cannabis use d/o ASSESSMENT:Pt coded for agitation and threatening staff last night with chemical and mechanical restraints that he tolerated well with improvement in symptoms and agitation. Seen in room and states he got angry b/c he was given seroquel last night and that made his mouth foam up. Continues to have bizarre paranoid delusions regarding cars taking sharp turns to purposely "piss me off." States he was just pointing a screw flatbed driver to cars driving by as a message "Don't mess with me... Don't come back... Go back to [place]." Pt become more agitated as I asked questions and ended interview to decrease level of agitation. Is compliant with invega and prn zyprexa. Continues to be delusional, reactive, paranoid. States he doesn't believe his diagnosis and wants a new diagnosis. MANAGEMENT PLAN: continue plan. CPS report filed. Per d/c exercise planner, pt's father has custody of the son and has prior admission and CPS report. Medications: invega 3mg daily and 6mg qhs zyprexa 10mg q4hr prn anxiety/agitation benadryl 50mg q4hr prn anxiety/agitation TIME SPENT: 30 minutes. Vital Signs Vital Signs Date Time Temp Pulse Resp B/P (MAP) Pulse Ox O2 Delivery O2 Flow Rate FiO2 11/18/18 06:44 97.6 81 14 127/79 (95) 11/17/18 22:45 97 11/15/18 15:51 Room Air Current Medications Current Medications Acetaminophen (Tylenol Tab) 650 mg Q6HP PRN PO HEADACHE or DISCOMFORT; Start 11/15/18 at 14:30 Al Hydrox/Mg Hydrox/Simethicone (Mylanta) 30 ml Q4HP PRN PO HEARTBURN/INDIG ESTION; Start 11/15/18 at 14:30 Diphenhydramine HCl (Benadryl) 50 mg Q4HP PRN PO ANXIETY/AGITATION Last administered on 11/16/18 19:17; Start 11/16/18 at 13:15 Diphenhydramine HCl (Benadryl) 50 mg STAT STAT IM Last administered on 11/17/18 21:56; Start 11/17/18 at 21:22; Stop 11/17/18 at 21:24; Status DC Diphenhydramine HCl (Benadryl) 50 mg STAT STAT IM ; Start 11/17/18 at 21:34; Stop 11/17/18 at 21:35; Status Cancel Haloperidol (Haldol) 5 mg STAT STAT IM Last administered on 11/17/18at 23:34; Start 11/17/18 at 23:14; Stop 11/17/18 at 23:16; Status DC Haloperidol (Haldol) 10 mg STAT STAT IM Last administered on 11/17/18 21:56; Start 11/17/18 at 21:22; Stop 11/17/18 at 21:24; Status DC Haloperidol (Haldol) 10 mg STAT STAT IM ; Start 11/17/18 at 21:34; Stop 11/17/18 at 21:35; Status Cancel Home Med (Med Rec Complete!) ASDIRECTED XX ; Start 11/15/18 at 12:45; Stop 11/15/18 at 12:49; Status DC Lorazepam (Ativan) 1 mg Q4HP PRN PO ANXIETY/AGITATION Last administered on 11/16/18at 22:23; Start 11/16/18 at 22:15; Stop 11/17/18 at 10:18; Status DC Lorazepam (Ativan) 1 mg STAT STAT IM Last administered on 11/17/18 23:34; Start 11/17/18 at 23:14; Stop 11/17/18 at 23:16; Status DC Lorazepam (Ativan) 2 mg Q6HP PRN PO ANXIETY/AGITATION Last administered on 11/16/18 08:18; Start 11/15/18 at 16:45; Stop 11/16/18 at 13:05; Status DC Lorazepam (Ativan) 2 mg STAT STAT IM Last administered on 11/17/18 21:55; Start 11/17/18 at 21:22; Stop 11/17/18 at 21:24; Status DC Lorazepam (Ativan) 2 mg STAT STAT IM ; Start 11/17/18 at 21:34; Stop 11/17/18 at 21:35; Status Cancel Magnesium Hydroxide (Milk Of Magnesia) 30 ml DAILYPRN PRN PO CONSTIPATION; Start 11/15/18 at 14:30 Nicotine (Nicoderm Cq 7 Mg) 1 patch DAILY TD Last administered on 11/16/18at 08:18; Start 11/16/18 at 09:00 Non-Formulary Medication ( See Comment Field Below ) SEE COMMENTS SECTION 1T@10 XX ; Start 11/18/18 at 10:00; Stop 11/19/18 at 09:59; Status UNV Non-Formulary Medication ( See Comment Field Below ) SEE LABEL COMMENTS DAILY XX ; Start 11/16/18 at 09:00 Olanzapine (ZyPREXA ZYDIS) 5 mg Q4HP PRN PO AGITATION; Start 11/15/18 at 14:30; Status Cancel Olanzapine (ZyPREXA ZYDIS) 10 mg Q4HP PRN PO ANXIETY/AGITATION Last administered on 11/17/18at 15:48; Start 11/16/18 at 13:15 Paliperidone (Invega) 3 mg QAM PO Last administered on 11/18/18at 09:35; Start 11/16/18 at 13:00 Paliperidone (Invega) 3 mg QHS PO Last administered on 11/17/18at 21:12; Start 11/16/18 at 21:00 Quetiapine Fumarate (SEROquel) 50 mg QHS PO Last administered on 11/17/18at 21:12; Start 11/15/18 at 21:00 Allergies Coded Allergies: No Known Allergies (Verified , 03/18/12) DEMARCUS PÉREZ DO Nov 18, 2018 11:17 am
[2018-11-18 18:00] VITALS: BP 131/67
[2018-11-18] MEDS: OLANZapine ORAL DISINTEGRATING TAB 5MG PO PRN (19:04)
[2018-11-18] MEDS: QUEtiapine FUMARATE 50 MG TAB PO SCH (21:00)
[2018-11-18] MEDS: PALIPERIDONE 6 MG ER TAB (INVEGA) PO SCH (21:00)
[2018-11-19 07:00] VITALS: BP 117/73
[2018-11-19] MEDS: PALIPERIDONE 3 MG ER TAB (INVEGA) PO SCH (08:27)
[2018-11-19] MEDS: **PENDING PPD ENTRY XX SCH (08:27)
[2018-11-19] MEDS: NICOTINE 7 MG/24 HR TRANSDERMAL TD SCH (08:27)
[2018-11-19] MEDS: OLANZapine ORAL DISINTEGRATING TAB 5MG PO PRN ×3 (10:21→20:11)
[2018-11-19] MEDS: diphenhydrAMINE 50 MG CAP PO PRN ×2 (13:31→22:20)
--- NOTE | 2018-11-19 16:49 | MHIPN ---
DATE: 11/19/2018 SUBJECTIVE: The patient reports he does not believe in any rastafarian. He thinks of reincarnation. He is preoccupied. OBJECTIVE: He is a 33-year-old male admitted who has a history of schizoaffective disorder. He has been noncompliant with medications. Currently, he is agitated at times, however, mostly he is rambling, talkative. There is significant flight of ideas. The patient was medicated on the unit in the past. The patient refused to take a mood stabilizer; however, he agreed to take Klonopin as he reports that he has anxiety. His vital signs: Temperature 98.2, pulse is 60, respiratory rate is 16, blood pressure 117/73. MENTAL STATUS EXAMINATION: Appearance: Well groomed. Behavior is partially cooperative; however, restless. He easily gets hostile. Eye contact is normal. Speech is pressured, loud. Mood is anxious, irritable and hypomanic. Affect is anxious and expansive. Thought process is tangential, flight of ideas, and circumstantial at times. Thought content: Denied any suicidal or homicidal ideas. Presybeterian preoccupation. Insight and judgment are impaired. Cognition: Alert, oriented to time, place and person. Memory is intact. DIAGNOSIS: 1. Schizoaffective disorder, bipolar. PLAN: He is to continue current medications. Add Klonopin 1 mg at night. Continue individual and group therapy. Continuity of care was discussed with treatment team. Coordination of care was provided with social work and treatment team. Anticipated length of stay is 4 to 5 days if patient is unable to take care of self. The patient is still dangerous to self or others.
[2018-11-19] MEDS ORDERED: clonazePAM 1 MG TAB PO SCH (17:30)
[2018-11-19 18:31] VITALS: BP 136/90
[2018-11-19] MEDS: PALIPERIDONE 6 MG ER TAB (INVEGA) PO SCH (20:11)
[2018-11-19] MEDS: QUEtiapine FUMARATE 50 MG TAB PO SCH (20:11)
[2018-11-20 07:04] VITALS: BP 132/71
[2018-11-20] MEDS: **PENDING PPD ENTRY XX SCH (08:39)
[2018-11-20] MEDS: PALIPERIDONE 3 MG ER TAB (INVEGA) PO SCH (08:40)
[2018-11-20] MEDS: NICOTINE 7 MG/24 HR TRANSDERMAL TD SCH (08:40)
[2018-11-20] MEDS: diphenhydrAMINE 50 MG CAP PO PRN (09:07)
[2018-11-20] MEDS: OLANZapine ORAL DISINTEGRATING TAB 5MG PO PRN (11:50)
[2018-11-20] MEDS ORDERED: clonazePAM 1 MG TAB PO SCH (17:30)
[2018-11-20 18:00] VITALS: BP 138/90
--- NOTE | 2018-11-20 18:03 | MHIPN ---
DATE: 11/20/2018 SUBJECTIVE: The patient is in his panic phase. He thinks he does not need any medications and he reports that I have the right to refuse the medication and I want to get discharged. OBJECTIVE: He is a 33-year-old male admitted with a history of schizoaffective disorder, has been noncompliant with his medication. Currently, he is getting easily irritable and angry, refusing medications. On several occasions, I tried to ask him to take one more mood stabilizer. Currently, he is on Invega. He continues to have significant flight of ideas, rambling at times, circumstantial. MENTAL STATUS EXAMINATION: He is in a hospital gown, causally dressed, somewhat disheveled, easily irritable, eye contact is normal. Speech is pressured loud. Thought process tangential. Flight of ideas, circumstantial. Cognition: Alert, oriented to time, place, and person. DIAGNOSIS: 1. Schizoaffective disorder, bipolar type PLAN: Continue individual and group therapy. Increase his Klonopin to 2 mg at night. Coordination of care provided with treatment team. The patient is still a danger to self or others. Needs continued hospitalization.
[2018-11-20] MEDS ORDERED: clonazePAM 1 MG TAB PO ONE (20:45)
[2018-11-20] MEDS: PALIPERIDONE 6 MG ER TAB (INVEGA) PO SCH (21:00)
[2018-11-20] MEDS: QUEtiapine FUMARATE 50 MG TAB PO SCH (21:00)
[2018-11-21 07:03] VITALS: BP 131/89
[2018-11-21] MEDS: PALIPERIDONE 3 MG ER TAB (INVEGA) PO SCH (08:00)
[2018-11-21] MEDS: NICOTINE 7 MG/24 HR TRANSDERMAL TD SCH (08:01)
[2018-11-21] MEDS: **PENDING PPD ENTRY XX SCH (08:02)
[2018-11-21] MEDS: clonazePAM 1 MG TAB PO SCH ×2 (09:15→21:00)
[2018-11-21] MEDS: diphenhydrAMINE 50 MG CAP PO PRN (15:12)
[2018-11-21] MEDS: OLANZapine ORAL DISINTEGRATING TAB 5MG PO PRN (15:12)
[2018-11-21 18:00] VITALS: BP 131/78
[2018-11-21] MEDS: PALIPERIDONE 6 MG ER TAB (INVEGA) PO SCH (21:00)
[2018-11-21] MEDS: QUEtiapine FUMARATE 50 MG TAB PO SCH (21:00)
[2018-11-22 06:29] VITALS: BP 134/73
[2018-11-22] MEDS: NICOTINE 7 MG/24 HR TRANSDERMAL TD SCH (08:03)
[2018-11-22] MEDS: clonazePAM 1 MG TAB PO SCH ×2 (08:04→20:00)
[2018-11-22] MEDS: PALIPERIDONE 3 MG ER TAB (INVEGA) PO SCH (08:05)
[2018-11-22] MEDS ORDERED: ARIPiprazole 15 MG TAB (AbiLIFY) PO SCH (09:00)
[2018-11-22] MEDS: **PENDING PPD ENTRY XX SCH (09:00)
[2018-11-22] MEDS: OLANZapine ORAL DISINTEGRATING TAB 5MG PO PRN ×2 (13:18→18:20)
--- NOTE | 2018-11-22 14:00 | MHIPN ---
DATE: 11/22/2018 SUBJECTIVE: "I want to get out from here, there is nothing wrong with me. The medication interferes in my thinking". OBJECTIVE: He is a 33-year-old male admitted with history of schizoaffective disorder who was noncompliant with his medication. He was angry. He had been aggressive in the community. He ran out from the police. He had to be blocked before he was arrested and brought to the hospital. However, after persuasion, the patient agreed to take Abilify which he was taking in the past. MENTAL STATUS EXAMINATION: The patient is casually dressed, cooperative, walks to and forth in the hallway. Oppositional, argumentative. Denied any suicidal or homicidal ideas. Has grandiose delusions as well as his mood is manic. His insight and judgment are impaired. DIAGNOSIS: Schizoaffective disorder, bipolar type. PLAN: To place him on Abilify 50 mg once daily and titrate the dose. Consider placing him on Abilify Maintena before he gets discharged. VITAL SIGNS: Temperature 98.2, pulse 65, blood pressure 134/73, respirations 12.
[2018-11-22] MEDS: NIACIN SR (NIASPAN) 500 MG TAB PO SCH ×2 (15:22→21:00)
[2018-11-22 18:05] VITALS: BP 119/64
[2018-11-22] MEDS: QUEtiapine FUMARATE 50 MG TAB PO SCH (20:01)
[2018-11-22] MEDS ORDERED: NIACIN SR (NIASPAN) 500 MG TAB PO SCH (21:00)
[2018-11-23 06:51] VITALS: BP 108/84
[2018-11-23] MEDS: clonazePAM 1 MG TAB PO SCH ×2 (08:10→21:49)
[2018-11-23] MEDS: NIACIN SR (NIASPAN) 500 MG TAB PO SCH ×2 (08:11→21:00)
[2018-11-23] MEDS: NICOTINE 7 MG/24 HR TRANSDERMAL TD SCH (08:12)
[2018-11-23] MEDS ORDERED: ARIPiprazole 15 MG TAB (AbiLIFY) PO SCH (09:00)
[2018-11-23] MEDS: **PENDING PPD ENTRY XX SCH (09:00)
[2018-11-23] MEDS: diphenhydrAMINE 50 MG CAP PO PRN (13:45)
[2018-11-23] MEDS: OLANZapine ORAL DISINTEGRATING TAB 5MG PO PRN (13:45)
--- NOTE | 2018-11-23 14:43 | MHIPN ---
DATE: 11/23/2018 SUBJECTIVE: Patient was calmer in the beginning, suddenly he escalated. Was angry. Was verbally abusive. OBJECTIVE: A 33-year-old male admitted with the history of schizoaffective disorder, has been noncompliant with his medication. Currently, he is getting easily irritable and angry. Has started taking his Abilify but refused to take Abilify injection. MENTAL STATUS EXAMINATION: Casually dressed. Initially was cooperative, suddenly escalated, angry, became somewhat aggressive. He is easily irritable made. His eye contact was staring. Speech was pressured, loud. Thought process: There was flight of ideas uncircumstantial. He is oriented to time, place, and person. DIAGNOSIS: Bipolar type 1 disorder, mostly simply preserved manic. Rule out schizoaffective disorder, bipolar type. Plan is to decrease his Klonopin 1 mg twice daily and increase his Abilify 20 mg once daily. Continue individual and group therapy. Coordination of care was provided with social work treatment team and nursing staff.
[2018-11-23] MEDS ORDERED: LORazepam 2 MG TAB PO ONE (15:30)
[2018-11-23] MEDS ORDERED: HALOPERIDOL 5 MG TAB PO ONE (15:30)
[2018-11-23 18:00] VITALS: BP 112/64
[2018-11-23] MEDS: QUEtiapine FUMARATE 50 MG TAB PO SCH (21:00)
[2018-11-24 07:00] VITALS: BP 118/75
[2018-11-24] MEDS: **PENDING PPD ENTRY XX SCH (08:00)
[2018-11-24] MEDS: clonazePAM 1 MG TAB PO SCH ×2 (08:00→20:09)
[2018-11-24] MEDS: NICOTINE 7 MG/24 HR TRANSDERMAL TD SCH (08:00)
[2018-11-24] MEDS: NIACIN SR (NIASPAN) 500 MG TAB PO SCH ×2 (08:00→20:11)
[2018-11-24] MEDS: ARIPiprazole 10 MG TAB PO SCH (08:00)
[2018-11-24] MEDS: diphenhydrAMINE 50 MG CAP PO PRN ×3 (09:40→20:09)
[2018-11-24] MEDS: OLANZapine ORAL DISINTEGRATING TAB 5MG PO PRN ×3 (09:40→20:09)
--- NOTE | 2018-11-24 15:17 | MHIPN ---
DATE: 11/24/2018 SUBJECTIVE: Reports that he does not need any medications. He does not have to stay here longer. He thinks he is fine to be discharged. OBJECTIVE: Patient is a 33-year-old male admitted with a history of schizoaffective disorder, noncompliant with medication who is getting easily irritable and angry, refusing medication. He was admitted because of angry and aggressive behavior in the community. He was running with a screwdriver chasing people. Currently he is taking Abilify 20 mg once daily. He refused to take his Invega. Continues to be circumstantial and manic. MENTAL STATUS EXAM: He is in a hospital gown, sitting in his room. Partially cooperative. Loud. Easily irritable. Speech is tangential. At times circumstantial. Flight of ideas. His thought content is having paranoid delusions. Is oriented to time, place and person. DIAGNOSES: Schizoaffective disorder, bipolar type. VITAL SIGNS: Temperature 98.0, pulse is 69, respiratory rate 16, blood pressure is 118/75. CURRENT MEDICATIONS: - aripiprazole 20 mg in the a.m. - niacin 5 mg twice a day twice a day - clonazepam 1 mg twice a day PLAN: Slowly taper off his clonazepam when patient is more cooperative. Continue individual and group therapy. Continuity of care was shared with social work, medicine staff and treatment team. Estimated length of stay: 5 to 6 days.
[2018-11-24] MEDS ORDERED: LORazepam 2 MG TAB PO ONE (16:30)
[2018-11-24] MEDS ORDERED: HALOPERIDOL 5 MG TAB PO ONE (16:30)
[2018-11-24 18:00] VITALS: BP 139/76
[2018-11-24] MEDS: QUEtiapine FUMARATE 50 MG TAB PO SCH (20:11)
[2018-11-25 07:04] VITALS: BP 124/77
[2018-11-25] MEDS: ARIPiprazole 10 MG TAB PO SCH (08:36)
[2018-11-25] MEDS: NIACIN SR (NIASPAN) 500 MG TAB PO SCH ×2 (08:37→20:54)
[2018-11-25] MEDS: NICOTINE 7 MG/24 HR TRANSDERMAL TD SCH (08:37)
[2018-11-25] MEDS: clonazePAM 1 MG TAB PO SCH (08:37)
[2018-11-25] MEDS: **PENDING PPD ENTRY XX SCH (08:38)
[2018-11-25] MEDS ORDERED: ARIPiprazole MONOHYDRATE 400 MG INJ (ABILIFY)(J0401) IM SCH (09:00)
[2018-11-25] MEDS: OLANZapine ORAL DISINTEGRATING TAB 5MG PO PRN ×2 (11:58→20:13)
--- NOTE | 2018-11-25 14:08 | MHIPN ---
DATE: 11/25/2018 SUBJECTIVE: "I am willing to take injection if it helps me getting out from here early". OBJECTIVE: He is a 33-year-old male admitted with a history of schizoaffective disorder who was noncompliant with his medication, angry, was brought by the police as he threatened a lady after following her car that he would slash her tire holding a screwdriver then he tried to run away from the police, they blocked him and brought him to the hospital. Patient has a long history of mental illness. On the unit he was coated initially and then he refused all the medications, finally he agreed to take Abilify. Currently he is less labile, not exhibiting any aggressive behavior today, however, yesterday he was angry and agitated. MENTAL STATUS EXAM: He is casually dressed. Cooperative. His psychomotor activity is mildly increased. Makes good eye contact. Mood is dysphoric. Affect is somewhat constricted. Speech rate is increased, volume is somewhat louder, has some pressured speech. Denied any suicidal or homicidal ideas. Continues to have grandiose delusions. Still in manic phase. His insight and judgment are impaired. He is alert, oriented to time, place, and person. DIAGNOSIS: Schizoaffective disorder, bipolar type. PLAN: Continue Abilify 20 mg [address] daily [address] him on Abilify Maintena 400 mg IM and monitor him on the unit. We have an administrative hearing for him today about pursuing his discharge to a [facility] facility. Continue individual and group therapy. Continuative care was coordinated with social work, nursing staff, and treatment team. VITAL SIGNS: Temperature 97.3, pulse 82, respiratory rate 14, blood pressure 124/77.
[2018-11-25] MEDS: clonazePAM 1 MG TAB PO PRN ×2 (16:05→20:13)
[2018-11-25] MEDS: diphenhydrAMINE 50 MG CAP PO PRN (17:40)
[2018-11-25 18:00] VITALS: BP 145/80
[2018-11-25] MEDS: QUEtiapine FUMARATE 50 MG TAB PO SCH (20:54)
[2018-11-26 06:55] VITALS: BP 128/79
[2018-11-26] MEDS: NIACIN SR (NIASPAN) 500 MG TAB PO SCH ×2 (08:31→21:00)
[2018-11-26] MEDS: NICOTINE 7 MG/24 HR TRANSDERMAL TD SCH (08:31)
[2018-11-26] MEDS: ARIPiprazole 10 MG TAB PO SCH (08:31)
[2018-11-26] MEDS: **PENDING PPD ENTRY XX SCH (08:33)
[2018-11-26] MEDS: diphenhydrAMINE 50 MG CAP PO PRN (08:57)
--- NOTE | 2018-11-26 09:34 | MHIPNPDOC ---
[facility] Progress Note Progress Note DATE OF SERVICE: 11/26/18 HISTORY: Patient is a 33 -year-old , male, with a history of paranoid schizophrenia, noncompliance medications and follow-up, multiple admits [facility] for psychosis who was brought to Ed by PD after a woman called them for help due to pt following her home in his car b/c she drove a red vehicle and threatening to slash her tires with a screwdriver. Pt was found by police in his car showing off a screwdriver in a threatening manor to passers by. Pt attempted to drive off from police but caught quickly when blocked off by 2 police cars. Pt told police he was following the woman b/c she was threatening and following him. Also stated she drove a red car and it was part of a gov't conspiracy b/c there are too many red, white, and blue cars for [place] which is a poor community. Pt in the ED endorsing gov't conspiracy as stated previously and that they were listening devices in nonspecific places. Pt endorsed paranoia regarding jehovah's witness and physicians in the ED due to physicians believing he needs antipsychotics when he thinks he needs adderall (this is not new to the pt). Is noncompliant with medications (1mo) and follow-up. Fires physicians that think he needs antipsychotics. VITAL SIGNS: See below. OBJECTIVE: He is a 33-year-old male admitted with a history of schizoaffective disorder who was noncompliant with his medication, angry, was brought by the police as he threatened a lady after following her car that he would slash her tire holding a screwdriver then he tried to run away from the police, they blocked him and brought him to the hospital. Patient has a long history of mental illness. On the unit he was coated initially and then he refused all the medications, finally he agreed to take Abilify. Pt stating he needs more anxiety medication and that antipsychotics don't help him b/c he doesn't hear voices that occur only when anxious. States he's having side effects from Abilify Mantenna that are making him "crazy" and that "It must be the gov't putting me on antipsychotics" in the milieu. Continues to state that cars where following him b/c counted 32 cars that passed by while he was watching on the side of the road which is too many for [place] b/c there's a gov't conspiracy relating to the drowns he say in [place]. "[employer] is all red, white, and blue!" stated randomly due to believe cars following him b/c sees them at intersection ahead and behind him when driving on the road some times to the store and states "that shouldn't happen all the time" so therefore must be following him as part of a conspiracy. Denies he believes there's anything wrong with waving a screw route relief driver at people in a threatening way to "stay out my area." Per nurse pt has already maxed out on 24hr limit of zyprexa (30mg/day) and klonopin. Remains paranoid with paranoid delusions thoughts of the gov't. Received Abilify Mantenna yesterday and will monitor for any improvement psychosis. Will provide haldol 5mg q6hr prn anxiety/agitation. Insight and judgement remain poor. D/c cyber intel planner contacted pt's father who is support of [employer] so will put in for referral. Administrative hearing rescheduled for next week. MENTAL STATUS EXAM: He is casually dressed. Cooperative. His psychomotor activity is mildly increased. Makes good eye contact. Mood is dysphoric. Affect is somewhat constricted. Speech rate is increased, volume is somewhat louder, has some pressured speech. Denied any suicidal or homicidal ideas. Continues to have grandiose delusions. Still in manic phase. His insight and judgment are impaired. He is alert, oriented to time, place, and person. DIAGNOSIS: Schizoaffective disorder, bipolar type. PLAN: Continue Abilify 20 mg [address] daily [address] him on Abilify Maintena 400 mg IM and monitor him on the unit. Vital Signs Vital Signs Date Time Temp Pulse Resp B/P (MAP) Pulse Ox O2 Delivery O2 Flow Rate FiO2 11/26/18 06:55 97.5 72 14 128/79 (95) Current Medications Current Medications Acetaminophen (Tylenol Tab) 650 mg Q6HP PRN PO HEADACHE or DISCOMFORT; Start 11/15/18 at 14:30 Al Hydrox/Mg Hydrox/Simethicone (Mylanta) 30 ml Q4HP PRN PO HEARTBURN/INDIG ESTION; Start 11/15/18 at 14:30 Aripiprazole (AbiLIFY) 15 mg DAILY PO Last administered on 11/22/18 10:27; Start 11/22/18 at 09:00; Stop 11/22/18 at 10:25; Status DC Aripiprazole (AbiLIFY) 15 mg QAM PO Last administered on 11/23/18 08:11; Start 11/23/18 at 09:00; Stop 11/23/18 at 13:13; Status DC Aripiprazole (AbiLIFY) 20 mg QAM PO Last administered on 11/26/18 08:31; Start 11/24/18 at 09:00 Aripiprazole (Abilify Maintena) 400 mg Q30D IM Last administered on 11/25/18 14:45; Start 11/25/18 at 09:00 Clonazepam (KlonoPIN) 1 mg ACS PO Last administered on 11/19/18 17:15; Start 11/19/18 at 17:30; Stop 11/20/18 at 16:43; Status DC Clonazepam (KlonoPIN) 1 mg BID PO Last administered on 11/25/18 08:37; Start 11/23/18 at 21:00; Stop 11/25/18 at 08:57; Status DC Clonazepam (KlonoPIN) 1 mg BID PRN PO anxiety Last administered on 11/25/18at 20:13; Start 11/25/18 at 09:00 Clonazepam (KlonoPIN) 2 mg ACS PO ; Start 11/20/18 at 17:30; Stop 11/21/18 at 08:36; Status DC Clonazepam (KlonoPIN) 2 mg BID PO Last administered on 11/23/18 08:10; Start 11/21/18 at 09:00; Stop 11/23/18 at 13:05; Status DC Diphenhydramine HCl (Benadryl) 50 mg Q4HP PRN PO ANXIETY/AGITATION Last administered on 11/26/18 08:57; Start 11/16/18 at 13:15 Diphenhydramine HCl (Benadryl) 50 mg STAT STAT IM Last administered on 11/17/18 21:56; Start 11/17/18 at 21:22; Stop 11/17/18 at 21:24; Status DC Diphenhydramine HCl (Benadryl) 50 mg STAT STAT IM ; Start 11/17/18 at 21:34; Stop 11/17/18 at 21:35; Status Cancel Haloperidol (Haldol) 5 mg STAT STAT IM Last administered on 11/17/18 23:34; Start 11/17/18 at 23:14; Stop 11/17/18 at 23:16; Status DC Haloperidol (Haldol) 10 mg STAT STAT IM Last administered on 11/17/18at 21:56; Start 11/17/18 at 21:22; Stop 11/17/18 at 21:24; Status DC Haloperidol (Haldol) 10 mg STAT STAT IM ; Start 11/17/18 at 21:34; Stop 11/17/18 at 21:35; Status Cancel Home Med (Med Rec Complete!) ASDIRECTED XX ; Start 11/15/18 at 12:45; Stop 11/15/18 at 12:49; Status DC Lorazepam (Ativan) 1 mg Q4HP PRN PO ANXIETY/AGITATION Last administered on 11/16/18at 22:23; Start 11/16/18 at 22:15; Stop 11/17/18 at 10:18; Status DC Lorazepam (Ativan) 1 mg STAT STAT IM Last administered on 11/17/18at 23:34; Start 11/17/18 at 23:14; Stop 11/17/18 at 23:16; Status DC Lorazepam (Ativan) 2 mg Q6HP PRN PO ANXIETY/AGITATION Last administered on 11/16/18at 08:18; Start 11/15/18 at 16:45; Stop 11/16/18 at 13:05; Status DC Lorazepam (Ativan) 2 mg STAT STAT IM Last administered on 11/17/18at 21:55; Start 11/17/18 at 21:22; Stop 11/17/18 at 21:24; Status DC Lorazepam (Ativan) 2 mg STAT STAT IM ; Start 11/17/18 at 21:34; Stop 11/17/18 at 21:35; Status Cancel Magnesium Hydroxide (Milk Of Magnesia) 30 ml DAILYPRN PRN PO CONSTIPATION; Start 11/15/18 at 14:30 Niacin (Niaspan) 500 mg BID PO Last administered on 11/26/18 08:31; Start 11/22/18 at 14:20 Niacin (Niaspan) 500 mg QHS PO ; Start 11/22/18 at 21:00; Stop 11/22/18 at 21:00; Status DC Nicotine (Nicoderm Cq 7 Mg) 1 patch DAILY TD Last administered on 11/26/18at 08:31; Start 11/16/18 at 09:00 Non-Formulary Medication ( See Comment Field Below ) SEE COMMENTS SECTION 1T@10 XX ; Start 11/18/18 at 10:00; Stop 11/19/18 at 09:59; Status UNV Non-Formulary Medication ( See Comment Field Below ) SEE LABEL COMMENTS DAILY XX ; Start 11/16/18 at 09:00 Olanzapine (ZyPREXA ZYDIS) 5 mg Q4HP PRN PO AGITATION; Start 11/15/18 at 14:30; Status Cancel Olanzapine (ZyPREXA ZYDIS) 10 mg Q4HP PRN PO ANXIETY/AGITATION Last administered on 11/25/18at 20:13; Start 11/16/18 at 13:15 Paliperidone (Invega) 3 mg QAM PO Last administered on 11/20/18at 08:40; Start 11/16/18 at 13:00; Stop 11/22/18 at 10:13; Status DC Paliperidone (Invega) 3 mg QHS PO Last administered on 11/17/18 21:12; Start 11/16/18 at 21:00; Stop 11/18/18 at 13:08; Status DC Paliperidone (Invega) 6 mg QHS PO ; Start 11/18/18 at 21:00; Stop 11/22/18 at 10:13; Status DC Quetiapine Fumarate (SEROquel) 50 mg QHS PO Last administered on 11/17/18at 21:12; Start 11/15/18 at 21:00 Allergies Coded Allergies: No Known Allergies (Verified , 03/18/12) DEMARCUS PÉREZ DO Nov 26, 2018 9:34 am
[2018-11-26] MEDS: HALOPERIDOL 5 MG TAB PO PRN (10:32)
[2018-11-26] MEDS: clonazePAM 0.5 MG TAB PO PRN (12:55)
[2018-11-26] MEDS: OLANZapine ORAL DISINTEGRATING TAB 5MG PO PRN (14:00)
[2018-11-26] MEDS ORDERED: diphenhydrAMINE 50 MG CAP PO ONE (15:00)
[2018-11-26] MEDS ORDERED: HALOPERIDOL 10 MG TAB PO ONE (15:00)
[2018-11-26 18:31] VITALS: BP 138/71
[2018-11-26] MEDS: QUEtiapine FUMARATE 50 MG TAB PO SCH (21:00)
[2018-11-27] MEDS: OLANZapine ORAL DISINTEGRATING TAB 5MG PO PRN ×3 (06:55→19:04)
[2018-11-27 07:01] VITALS: BP 116/67
[2018-11-27] MEDS: ARIPiprazole 10 MG TAB PO SCH (08:05)
[2018-11-27] MEDS: clonazePAM 0.5 MG TAB PO PRN ×2 (08:05→14:56)
[2018-11-27] MEDS: NICOTINE 7 MG/24 HR TRANSDERMAL TD SCH (08:06)
[2018-11-27] MEDS: NIACIN SR (NIASPAN) 500 MG TAB PO SCH ×2 (08:07→20:22)
[2018-11-27] MEDS: **PENDING PPD ENTRY XX SCH (09:00)
[2018-11-27] MEDS: diphenhydrAMINE 50 MG CAP PO PRN (18:15)
[2018-11-27 18:38] VITALS: BP 135/84
[2018-11-27] MEDS: HALOPERIDOL 5 MG TAB PO PRN (20:22)
[2018-11-27] MEDS: QUEtiapine FUMARATE 50 MG TAB PO SCH (21:00)
[2018-11-28 06:36] VITALS: BP 112/66
[2018-11-28] MEDS: clonazePAM 0.5 MG TAB PO PRN ×2 (07:43→18:15)
[2018-11-28] MEDS: NIACIN SR (NIASPAN) 500 MG TAB PO SCH ×2 (08:37→20:12)
[2018-11-28] MEDS: ARIPiprazole 10 MG TAB PO SCH (08:37)
[2018-11-28] MEDS: NICOTINE 7 MG/24 HR TRANSDERMAL TD SCH (08:38)
[2018-11-28] MEDS: **PENDING PPD ENTRY XX SCH (09:00)
[2018-11-28] MEDS: OLANZapine ORAL DISINTEGRATING TAB 5MG PO PRN (09:15)
[2018-11-28] MEDS ORDERED: HALOPERIDOL 10 MG TAB PO ONE (09:30)
[2018-11-28] MEDS ORDERED: chlorproMAZINE 25 MG TAB (Q0161) PO PRN (09:30)
--- NOTE | 2018-11-28 09:52 | MHIPNPDOC ---
[facility] Progress Note Progress Note DATE OF SERVICE: 11/28/18 Patient is a 33 -year-old , male, with a history of paranoid schizophrenia, noncompliance medications and follow-up, multiple admits [facility] for psychosis who was brought to Ed by PD after a woman called them for help due to pt following her home in his car b/c she drove a red vehicle and threatening to slash her tires with a screwdriver. Pt was found by police in his car showing off a screwdriver in a threatening manor to passers by. Pt attempted to drive off from police but caught quickly when blocked off by 2 police cars. Pt told police he was following the woman b/c she was threatening and following him. Also stated she drove a red car and it was part of a gov't conspiracy b/c there are too many red, white, and blue cars for [place] which is a poor community. Pt in the ED endorsing gov't conspiracy as stated previously and that they were listening devices in nonspecific places. Pt endorsed paranoia regarding confucianist and physicians in the ED due to physicians believing he needs antipsychotics when he thinks he needs adderall (this is not new to the pt). Is noncompliant with medications (1mo) and follow-up. Fires physicians that think he needs antipsychotics. VITAL SIGNS: See below. OBJECTIVE: He is a 33-year-old male admitted with a history of schizoaffective disorder who was noncompliant with his medication, angry, was brought by the police as he threatened a lady after following her car that he would slash her tire holding a screwdriver then he tried to run away from the police, they blocked him and brought him to the hospital. Patient has a long history of mental illness. On the unit he was coated initially and then he refused all the medications, finally he agreed to take Abilify. Pt coming to my office multiple times without being called demanding to be discharged b/c "tomorrow is 15 days and you can't keep me here" even though he is aware he has court coming up for shelter hospitalization due to unresolving schizophrenia despite abilify and abilify mantenna. Appears to have show no improvement after abilify mantena given as still voicing paranoid delusions of "people messing with me" that he has very poor insight into and continues to believe in gov't conspiracy with drowns in [facility] shoot off sides of road with blue and white lights, too many red/white/blue cars in [facility] for the area to afford, counting cars passing intersection "33 one day," cars following him in front of him or when turning at the intersection as him, waving screw drivers at red/white/blue cars in threatening manner to mean "don't mess with me" as they passed by, and following a woman home that was in a red car and threatening to slash here tires b/c she was following him even though she was driving in front of him. Woman called police who found pt on side of road waving screw skidder driver at cars passing and attempted to evade police on car concha and was caught when blocked in by buffer copper cars. When asked about his behavior he states there's nothing wrong with it or dangerous about it b/c "people, the gov't" are messing with him. Endorses ideas of reference as well as states "have you have watched [employer]... every thing is red, white, and blue... it's a gov't con spiracy. Pt yelling at me this morning, demanding to be d/c, calling me a witch. Will start haldol 10mg bid for psychosis and provide thorazine 50mg q6hr prn anxiety/agitation. Insight and judgement remain poor. D/c master planner contacted pt's father who is support of AOT so will put in for referral. Administrative hearing rescheduled for next week. MENTAL STATUS EXAM: He is casually dressed. Cooperative. His psychomotor activity is agitated and verbally aggressive. Makes fair eye contact. Mood is agitated and confrontational, very labile. Affect is somewhat agitated, very labile. Speech rate is reg rate, volume is yelling and loud, reg rhythm. Denied any suicidal or homicidal ideas although doesn't hesitate to say he'll hurt anyone he feels is messing with him. Continues to have grandiose and paranoid delusions, ideas of reference. His insight and judgment are very poor and impaired. He is alert, oriented to time, place, and person. DIAGNOSIS: Paranoid Schizophrenia PLAN: abilify mantenna appears to have no effects on pt nor improving paranoid delusions/agitation/psychosis start haldol 10mg bid and Thorazine 50mg q6hr prn anxiety/agitation Vital Signs Vital Signs Date Time Temp Pulse Resp B/P (MAP) Pulse Ox O2 Delivery O2 Flow Rate FiO2 11/28/18 06:36 98.0 103 12 112/66 (81) 11/27/18 09:52 Room Air Current Medications Current Medications Acetaminophen (Tylenol Tab) 650 mg Q6HP PRN PO HEADACHE or DISCOMFORT; Start 11/15/18 at 14:30 Al Hydrox/Mg Hydrox/Simethicone (Mylanta) 30 ml Q4HP PRN PO HEARTBURN/INDIGESTION; Start 11/15/18 at 14:30 Aripiprazole (AbiLIFY) 15 mg DAILY PO Last administered on 11/22/18at 10:27; Start 11/22/18 at 09:00; Stop 11/22/18 at 10:25; Status DC Aripiprazole (AbiLIFY) 15 mg QAM PO Last administered on 11/23/18at 08:11; Start 11/23/18 at 09:00; Stop 11/23/18 at 13:13; Status DC Aripiprazole (AbiLIFY) 20 mg QAM PO Last administered on 11/28/18at 08:37; Start 11/24/18 at 09:00 Aripiprazole (Abilify Maintena) 400 mg Q30D IM Last administered on 11/25/18at 14:45; Start 11/25/18 at 09:00 Clonazepam (KlonoPIN) 0.5 mg BID PRN PO ANXIETY/AGITATION Last administered on 11/28/18at 07:43; Start 11/26/18 at 09:30 Clonazepam (KlonoPIN) 1 mg ACS PO Last administered on 11/19/18 17:15; Start 11/19/18 at 17:30; Stop 11/20/18 at 16:43; Status DC Clonazepam (KlonoPIN) 1 mg BID PO Last administered on 11/25/18 08:37; Start 11/23/18 at 21:00; Stop 11/25/18 at 08:57; Status DC Clonazepam (KlonoPIN) 1 mg BID PRN PO anxiety Last administered on 11/25/18at 20:13; Start 11/25/18 at 09:00; Stop 11/26/18 at 09:21; Status DC Clonazepam (KlonoPIN) 2 mg ACS PO ; Start 11/20/18 at 17:30; Stop 11/21/18 at 08:36; Status DC Clonazepam (KlonoPIN) 2 mg BID PO Last administered on 11/23/18at 08:10; Start 11/21/18 at 09:00; Stop 11/23/18 at 13:05; Status DC Diphenhydramine HCl (Benadryl) 50 mg Q4HP PRN PO ANXIETY/AGITATION Last administered on 11/27/18at 18:15; Start 11/16/18 at 13:15 Diphenhydramine HCl (Benadryl) 50 mg STAT STAT IM Last administered on 11/17/18 21:56; Start 11/17/18 at 21:22; Stop 11/17/18 at 21:24; Status DC Diphenhydramine HCl (Benadryl) 50 mg STAT STAT IM ; Start 11/17/18 at 21:34; Stop 11/17/18 at 21:35; Status Cancel Haloperidol (Haldol) 5 mg Q6HP PRN PO AGITATION Last administered on 11/27/18at 20:22; Start 11/26/18 at 09:30 Haloperidol (Haldol) 5 mg STAT STAT IM Last administered on 11/17/18 23:34; Start 11/17/18 at 23:14; Stop 11/17/18 at 23:16; Status DC Haloperidol (Haldol) 10 mg STAT STAT IM Last administered on 11/17/18 21:56; Start 11/17/18 at 21:22; Stop 11/17/18 at 21:24; Status DC Haloperidol (Haldol) 10 mg STAT STAT IM ; Start 11/17/18 at 21:34; Stop 11/17/18 at 21:35; Status Cancel Home Med (Med Rec Complete!) ASDIRECTED XX ; Start 11/15/18 at 12:45; Stop 11/15/18 at 12:49; Status DC Lorazepam (Ativan) 1 mg Q4HP PRN PO ANXIETY/AGITATION Last administered on 11/16/18at 22:23; Start 11/16/18 at 22:15; Stop 11/17/18 at 10:18; Status DC Lorazepam (Ativan) 1 mg STAT STAT IM Last administered on 11/17/18at 23:34; Start 11/17/18 at 23:14; Stop 11/17/18 at 23:16; Status DC Lorazepam (Ativan) 2 mg Q6HP PRN PO ANXIETY/AGITATION Last administered on 11/16/18at 08:18; Start 11/15/18 at 16:45; Stop 11/16/18 at 13:05; Status DC Lorazepam (Ativan) 2 mg STAT STAT IM Last administered on 11/17/18at 21:55; Start 11/17/18 at 21:22; Stop 11/17/18 at 21:24; Status DC Lorazepam (Ativan) 2 mg STAT STAT IM ; Start 11/17/18 at 21:34; Stop 11/17/18 at 21:35; Status Cancel Magnesium Hydroxide (Milk Of Magnesia) 30 ml DAILYPRN PRN PO CONSTIPATION; Start 11/15/18 at 14:30 Niacin (Niaspan) 500 mg BID PO Last administered on 11/28/18at 08:37; Start 11/22/18 at 14:20 Niacin (Niaspan) 500 mg QHS PO ; Start 11/22/18 at 21:00; Stop 11/22/18 at 21:00; Status DC Nicotine (Nicoderm Cq 7 Mg) 1 patch DAILY TD Last administered on 11/28/18at 08:38; Start 11/16/18 at 09:00 Non-Formulary Medication ( See Comment Field Below ) SEE COMMENTS SECTION 1T@10 XX ; Start 11/18/18 at 10:00; Stop 11/19/18 at 09:59; Status UNV Non-Formulary Medication ( See Comment Field Below ) SEE LABEL COMMENTS DAILY XX ; Start 11/16/18 at 09:00 Olanzapine (ZyPREXA ZYDIS) 5 mg Q4HP PRN PO AGITATION; Start 11/15/18 at 14:30; Status Cancel Olanzapine (ZyPREXA ZYDIS) 10 mg Q4HP PRN PO ANXIETY/AGITATION Last administered on 11/28/18at 09:15; Start 11/16/18 at 13:15 Paliperidone (Invega) 3 mg QAM PO Last administered on 11/20/18at 08:40; Start 11/16/18 at 13:00; Stop 11/22/18 at 10:13; Status DC Paliperidone (Invega) 3 mg QHS PO Last administered on 11/17/18at 21:12; Start 11/16/18 at 21:00; Stop 11/18/18 at 13:08; Status DC Paliperidone (Invega) 6 mg QHS PO ; Start 11/18/18 at 21:00; Stop 11/22/18 at 10:13; Status DC Quetiapine Fumarate (SEROquel) 50 mg QHS PO Last administered on 11/17/18at 21:12; Start 11/15/18 at 21:00 Allergies Coded Allergies: No Known Allergies (Verified , 03/18/12) DEMARCUS PÉREZ DO Nov 28, 2018 9:52 am
[2018-11-28] MEDS: diphenhydrAMINE 50 MG CAP PO PRN (12:55)
[2018-11-28 18:28] VITALS: BP 122/64
[2018-11-28] MEDS: QUEtiapine FUMARATE 50 MG TAB PO SCH (20:12)
[2018-11-28] MEDS: HALOPERIDOL 10 MG TAB PO SCH (20:12)
[2018-11-29] MEDS: clonazePAM 0.5 MG TAB PO PRN ×2 (06:45→17:50)
[2018-11-29 07:11] VITALS: BP 132/90
[2018-11-29] MEDS: **PENDING PPD ENTRY XX SCH (08:16)
[2018-11-29] MEDS: NICOTINE 7 MG/24 HR TRANSDERMAL TD SCH (08:18)
[2018-11-29] MEDS: ARIPiprazole 10 MG TAB PO SCH (08:18)
[2018-11-29] MEDS: HALOPERIDOL 10 MG TAB PO SCH ×2 (08:19→21:00)
[2018-11-29] MEDS: NIACIN SR (NIASPAN) 500 MG TAB PO SCH ×2 (08:19→21:00)
[2018-11-29] MEDS: diphenhydrAMINE 50 MG CAP PO PRN ×2 (08:19→17:50)
[2018-11-29] MEDS: OLANZapine ORAL DISINTEGRATING TAB 5MG PO PRN (11:11)
--- NOTE | 2018-11-29 12:14 | MHIPNPDOC ---
[facility] Progress Note Progress Note DATE OF SERVICE: 11/29/18 HISTORY: Patient is a 33 -year-old , male, with a history of paranoid schizophrenia, noncompliance medications and follow-up, multiple admits [facility] for psychosis who was brought to Ed by PD after a woman called them for help due to pt following her home in his car b/c she drove a red vehicle and threatening to slash her tires with a screwdriver. Pt was found by police in his car showing off a screwdriver in a threatening manor to passers by. Pt attempted to drive off from police but caught quickly when blocked off by 2 police cars. Pt told police he was following the woman b/c she was threatening and following him. Also stated she drove a red car and it was part of a gov't conspiracy b/c there are too many red, white, and blue cars for [place] which is a poor community. Pt in the ED endorsing gov't conspiracy as stated previously and that they were listening devices in nonspecific places. Pt endorsed paranoia regarding methodist and physicians in the ED due to physicians believing he needs antipsychotics when he thinks he needs adderall (this is not new to the pt). Is noncompliant with medications (1mo) and follow-up. Fires physicians that think he needs antipsychotics. VITAL SIGNS: See below. OBJECTIVE: He is a 33-year-old male admitted with a history of schizoaffective disorder who was noncompliant with his medication, angry, was brought by the police as he threatened a lady after following her car that he would slash her tire holding a screwdriver then he tried to run away from the police, they blocked him and brought him to the hospital. Patient has a long history of mental illness. On the unit he was coated initially and then he refused all the medications, finally he agreed to take Abilify. Pt continues to have paranoid delusions everything stated yesterday "people messing with me" that he has very poor insight into and continues to believe in gov't conspiracy with drowns in [facility] shoot off sides of road with blue and white lights, too many red/white/blue cars in [place] for the area to afford, counting cars passing intersection "33 one day," cars following him in front of him or when turning at the intersection as him, waving screw drivers at red/white/blue cars in threatening manner to mean "don't mess with me" as they passed by, and following a woman home that was in a red car and threatening to slash here tires b/c she was following him even though she was driving in front of him. Woman called police who found pt on side of road waving screw hi lo driver at cars passing and attempted to evade police on car concha and was caught when blocked in by nuclear spectroscopist cars. When asked about his behavior he states there's nothing wrong with it or dangerous about it b/c "people, the gov't" are messing with him. Endorses ideas of reference as well as states "have you have watched [employer] TV... every thing is red, white, and blue... it's a gov't conspiracy." Pt does not believe he has diagnosis of schizophrenia on basis he denies AH and continuously advise and attempt to educate him that schizophrenia also includes paranoia, delusions, ideas of reference, thought insertion/broadcasting, etc but refutes all of it by denying he has paranoid delusions even though it is evident they continue. Demanding more klonopin as that's the only thing that helps him. Does state thought that haldol 10mg bid is helping for anxiety and appears less verbally agitated yet only slightly. Insight and judgement remain poor. D/c wedding planner contacted pt's father who is support of AOT so will put in for referral. Administrative hearing rescheduled for next week. MENTAL STATUS EXAM: He is casually dressed. Cooperative. His psychomotor activity is agitated and verbally aggressive. Makes fair eye contact. Mood is agitated and confrontational, very labile. Affect is somewhat agitated, very labile. Speech rate is reg rate, volume is loud, reg rhythm. Denied any suicidal or homicidal ideas although doesn't hesitate to say he'll hurt anyone he feels is messing with him. Continues to have grandiose and paranoid delusions, ideas of reference. His insight and judgment are very poor and impaired. He is alert, oriented to time, place, and person. DIAGNOSIS: Paranoid Schizophrenia PLAN: d/c anthony and anthony mccoy due to no improvement. D/c zyprexa as not very effective continue haldol 10mg bid and Thorazine 50mg q6hr prn anxiety/agitation add vistaril 50mg q6hr prn anxiety Vital Signs Vital Signs Date Time Temp Pulse Resp B/P (MAP) Pulse Ox O2 Delivery O2 Flow Rate FiO2 11/29/18 07:43 Room Air 11/29/18 07:11 96.7 68 18 132/90 (104) Current Medications Current Medications Acetaminophen (Tylenol Tab) 650 mg Q6HP PRN PO HEADACHE or DISCOMFORT; Start 11/15/18 at 14:30 Al Hydrox/Mg Hydrox/Simethicone (Mylanta) 30 ml Q4HP PRN PO HEARTBURN/INDIGESTION; Start 11/15/18 at 14:30 Aripiprazole (AbiLIFY) 15 mg DAILY PO Last administered on 11/22/18at 10:27; Start 11/22/18 at 09:00; Stop 11/22/18 at 10:25; Status DC Aripiprazole (AbiLIFY) 15 mg QAM PO Last administered on 11/23/18at 08:11; Start 11/23/18 at 09:00; Stop 11/23/18 at 13:13; Status DC Aripiprazole (AbiLIFY) 20 mg QAM PO Last administered on 11/29/18at 08:18; Start 11/24/18 at 09:00; Stop 11/29/18 at 11:48; Status DC Aripiprazole (Abilify Maintena) 400 mg Q30D IM Last administered on 11/25/18at 14:45; Start 11/25/18 at 09:00; Stop 11/29/18 at 11:50; Status DC Chlorpromazine HCl (Thorazine) 50 mg Q6HP PRN PO AGITATION; Start 11/28/18 at 09:30 Clonazepam (KlonoPIN) 0.5 mg BID PRN PO ANXIETY/AGITATION Last administered on 11/29/18at 06:45; Start 11/26/18 at 09:30 Clonazepam (KlonoPIN) 1 mg ACS PO Last administered on 11/19/18at 17:15; Start 11/19/18 at 17:30; Stop 11/20/18 at 16:43; Status DC Clonazepam (KlonoPIN) 1 mg BID PO Last administered on 11/25/18 08:37; Start 11/23/18 at 21:00; Stop 11/25/18 at 08:57; Status DC Clonazepam (KlonoPIN) 1 mg BID PRN PO anxiety Last administered on 11/25/18 20:13; Start 11/25/18 at 09:00; Stop 11/26/18 at 09:21; Status DC Clonazepam (KlonoPIN) 2 mg ACS PO ; Start 11/20/18 at 17:30; Stop 11/21/18 at 08:36; Status DC Clonazepam (KlonoPIN) 2 mg BID PO Last administered on 11/23/18 08:10; Start 11/21/18 at 09:00; Stop 11/23/18 at 13:05; Status DC Diphenhydramine HCl (Benadryl) 50 mg Q4HP PRN PO ANXIETY/AGITATION Last ad ministered on 11/29/18 08:19; Start 11/16/18 at 13:15 Diphenhydramine HCl (Benadryl) 50 mg STAT STAT IM Last administered on 21:56; Start 11/17/18 at 21:22; Stop 11/17/18 at 21:24; Status DC Diphenhydramine HCl (Benadryl) 50 mg STAT STAT IM ; Start 11/17/18 at 21:34; Stop 11/17/18 at 21:35; Status Cancel Haloperidol (Haldol) 5 mg Q6HP PRN PO AGITATION Last administered on 11/27/18at 20:22; Start 11/26/18 at 09:30; Stop 11/28/18 at 09:31; Status DC Haloperidol (Haldol) 5 mg STAT STAT IM Last administered on 11/17/18 23:34; Start 11/17/18 at 23:14; Stop 11/17/18 at 23:16; Status DC Haloperidol (Haldol) 10 mg BID PO Last administered on 11/29/18 08:19; Start 11/28/18 at 21:00 Haloperidol (Haldol) 10 mg STAT STAT IM Last administered on 11/17/18 21:56; Start 11/17/18 at 21:22; Stop 11/17/18 at 21:24; Status DC Haloperidol (Haldol) 10 mg STAT STAT IM ; Start 11/17/18 at 21:34; Stop 11/17/18 at 21:35; Status Cancel Home Med (Med Rec Complete!) ASDIRECTED XX ; Start 11/15/18 at 12:45; Stop 11/15/18 at 12:49; Status DC Lorazepam (Ativan) 1 mg Q4HP PRN PO ANXIETY/AGITATION Last administered on 11/16/18at 22:23; Start 11/16/18 at 22:15; Stop 11/17/18 at 10:18; Status DC Lorazepam (Ativan) 1 mg STAT STAT IM Last administered on 11/17/18at 23:34; Start 11/17/18 at 23:14; Stop 11/17/18 at 23:16; Status DC Lorazepam (Ativan) 2 mg Q6HP PRN PO ANXIETY/AGITATION Last administered on 11/16/18at 08:18; Start 11/15/18 at 16:45; Stop 11/16/18 at 13:05; Status DC Lorazepam (Ativan) 2 mg STAT STAT IM Last administered on 11/17/18at 21:55; Start 11/17/18 at 21:22; Stop 11/17/18 at 21:24; Status DC Lorazepam (Ativan) 2 mg STAT STAT IM ; Start 11/17/18 at 21:34; Stop 11/17/18 at 21:35; Status Cancel Magnesium Hydroxide (Milk Of Magnesia) 30 ml DAILYPRN PRN PO CONSTIPATION; Sta rt 11/15/18 at 14:30 Niacin (Niaspan) 500 mg BID PO Last administered on 11/29/18at 08:19; Start 11/22/18 at 14:20 Niacin (Niaspan) 500 mg QHS PO ; Start 11/22/18 at 21:00; Stop 11/22/18 at 21:00; Status DC Nicotine (Nicoderm Cq 7 Mg) 1 patch DAILY TD Last administered on 11/29/18at 08:18; Start 11/16/18 at 09:00 Non-Formulary Medication ( See Comment Field Below ) SEE COMMENTS SECTION 1T@10 XX ; Start 11/18/18 at 10:00; Stop 11/19/18 at 09:59; Status UNV Non-Formulary Medication ( See Comment Field Below ) SEE LABEL COMMENTS DAILY XX ; Start 11/16/18 at 09:00 Olanzapine (ZyPREXA ZYDIS) 5 mg Q4HP PRN PO AGITATION; Start 11/15/18 at 14:30; Status Cancel Olanzapine (ZyPREXA ZYDIS) 10 mg Q4HP PRN PO ANXIETY/AGITATION Last administered on 11/29/18at 11:11; Start 11/16/18 at 13:15 Paliperidone (Invega) 3 mg QAM PO Last administered on 11/20/18at 08:40; Start 11/16/18 at 13:00; Stop 11/22/18 at 10:13; Status DC Paliperidone (Invega) 3 mg QHS PO Last administered on 11/17/18at 21:12; Start 11/16/18 at 21:00; Stop 11/18/18 at 13:08; Status DC Paliperidone (Invega) 6 mg QHS PO ; Start 11/18/18 at 21:00; Stop 11/22/18 at 10:13; Status DC Quetiapine Fumarate (SEROquel) 50 mg QHS PO Last administered on 11/28/18at 20:12; Start 11/15/18 at 21:00 Allergies Coded Allergies: No Known Allergies (Verified , 03/18/12) DEMARCUS PÉREZ DO Nov 29, 2018 12:14 pm
[2018-11-29 18:00] VITALS: BP 133/90
[2018-11-30 06:52] VITALS: BP 131/71
[2018-11-30] MEDS: **PENDING PPD ENTRY XX SCH (08:05)
[2018-11-30] MEDS: clonazePAM 0.5 MG TAB PO PRN ×2 (08:07→20:24)
[2018-11-30] MEDS: NICOTINE 7 MG/24 HR TRANSDERMAL TD SCH (08:07)
[2018-11-30] MEDS: NIACIN SR (NIASPAN) 500 MG TAB PO SCH ×2 (08:07→20:24)
[2018-11-30] MEDS: HALOPERIDOL 10 MG TAB PO SCH ×3 (09:00→20:24)
[2018-11-30] MEDS: diphenhydrAMINE 50 MG CAP PO PRN ×2 (10:14→20:25)
--- NOTE | 2018-11-30 10:14 | MHIPNPDOC ---
[facility] Progress Note Progress Note DATE OF SERVICE: 11/30/18 HISTORY: Patient is a 33 -year-old , male, with a history of paranoid schizophrenia, noncompliance medications and follow-up, [facility] who was brought to Ed by PD after a woman called them for help due to pt following her home in his car b/c she drove a red vehicle and threatening to slash her tires with a screwdriver. Pt was found by police in his car showing off a screwdriver in a threatening manor to passers by. Pt attempted to drive off from police but caught quickly when blocked off by 2 police cars. Pt told police he was following the woman b/c she was threatening and following him. Also stated she drove a red car and it was part of a gov't conspiracy b/c there are too many red, white, and blue cars for [place] which is a poor community. Pt in the ED endorsing gov't conspiracy as stated previously and that they were listening devices in nonspecific places. Pt endorsed paranoia regarding caodaism and physicians in the ED due to physicians believing he needs antipsychotics when he thinks he needs adderall (this is not new to the pt). Is noncompliant with medications (1mo) and follow-up. Fires physicians that think he needs antipsychotics. VITAL SIGNS: See below. OBJECTIVE: Pt states he had a "reaction" to thorazine and doesn't want to take it again. Spoke with nurse of pt yesterday and states he was more angry due to feeling of head pressure and overall uncomfortable feeling after thorazine. Will d/c. Pt encouraged to continue haldol and be compliant on it. Refused it this morning. Attempted to bring up recommendation for haldol dec for noncompliance which pt was totally against stating he wants to do things "naturally" and was fine prior admission with his "natural treatment and adderall." Continues to have paranoid delusions everything stated on Thursday: "people messing with me" that he has very poor insight into and continues to believe in gov't conspiracy [facility] with blue and white lights, too many red[place] [facility] [place] the area to afford, counting cars passing intersection "32 one day," cars following him in front of him or when turning at the intersection as him, waving screw drivers at red/white/blue cars in threatening manner to mean "don't mess with me" as they passed by, and following a woman home that was in a red car and threatening to slash here tires b/c she was following him even though she was driving in front of him. Woman called police who found pt on side of road waving screw compressed air pile driver operator at cars passing and attempted to evade police on car concha and was caught when blocked in by photocopy operator cars. When asked about his behavior he states there's nothing wrong with it or dangerous about it b/c "people, the gov't" are messing with him. Endorses ideas of reference as well as states "have you have watched [employer]... every thing is red, white, and blue... it's a gov't conspiracy." Pt does not believe he has diagnosis of schizophrenia on basis he denies AH and continuously advise and attempt to educate him that schizophrenia also includes paranoia, delusions, ideas of reference, thought insertion/broadcasting, etc but refutes all of it by denying he has paranoid delusions even though it is evident they continue. States benadryl is helpful for anxiety. Insight and judgement remain poor. D/c logistics planner contacted pt's father who is support of [employer] so will put in for referral. Administrative hearing rescheduled for this week. MENTAL STATUS EXAM: He is casually dressed. Cooperative at first. His psychomotor activity is agitated and verbally aggressive, defensive, antagonistic. Makes fair eye contact. Mood is agitated and confrontational, very labile. Affect is somewhat agitated, very labile. Speech rate is reg rate, volume is loud, reg rhythm. Denied any suicidal or homicidal ideas although doesn't hesitate to say he'll hurt anyone he feels is messing with him. Continues to have grandiose and para noid delusions, ideas of reference. His insight and judgment are very poor and impaired. He is alert, oriented to time, place, and person. DIAGNOSIS: Paranoid Schizophrenia PLAN: d/c thorazine prn haldol 10mg bid haldol 10mg q6hr prn anxiety/agitation vistaril 50mg q6hr prn anxiety Vital Signs Vital Signs Date Time Temp Pulse Resp B/P (MAP) Pulse Ox O2 Delivery O2 Flow Rate FiO2 11/30/18 08:51 Room Air 11/30/18 06:52 99.3 92 14 131/71 (91) 11/29/18 18:00 97 Current Medications Current Medications Acetaminophen (Tylenol Tab) 650 mg Q6HP PRN PO HEADACHE or DISCOMFORT; Start 11/15/18 at 14:30 Al Hydrox/Mg Hydrox/Simethicone (Mylanta) 30 ml Q4HP PRN PO HEARTBURN/INDIGESTION; Start 11/15/18 at 14:30 Aripiprazole (AbiLIFY) 15 mg DAILY PO Last administered on 11/22/18at 10:27; Start 11/22/18 at 09:00; Stop 11/22/18 at 10:25; Status DC Aripiprazole (AbiLIFY) 15 mg QAM PO Last administered on 11/23/18at 08:11; Start 11/23/18 at 09:00; Stop 11/23/18 at 13:13; Status DC Aripiprazole (AbiLIFY) 20 mg QAM PO Last administered on 11/29/18 08:18; Start 11/24/18 at 09:00; Stop 11/29/18 at 11:48; Status DC Aripiprazole (Abilify Maintena) 400 mg Q30D IM Last administered on 11/25/18at 14:45; Start 11/25/18 at 09:00; Stop 11/29/18 at 11:50; Status DC Chlorpromazine HCl (Thorazine) 50 mg Q6HP PRN PO AGITATION Last administered on 11/29/18at 12:13; Start 11/28/18 at 09:30 Clonazepam (KlonoPIN) 0.5 mg BID PRN PO ANXIETY/AGITATION Last administered on 11/30/18 08:07; Start 11/26/18 at 09:30 Clonazepam (KlonoPIN) 1 mg ACS PO Last administered on 11/19/18at 17:15; Start 11/19/18 at 17:30; Stop 11/20/18 at 16:43; Status DC Clonazepam (KlonoPIN) 1 mg BID PO Last administered on 11/25/18at 08:37; Start 11/23/18 at 21:00; Stop 11/25/18 at 08:57; Status DC Clonazepam (KlonoPIN) 1 mg BID PRN PO anxiety Last administered on 11/25/18at 20:13; Start 11/25/18 at 09:00; Stop 11/26/18 at 09:21; Status DC Clonazepam (KlonoPIN) 2 mg ACS PO ; Start 11/20/18 at 17:30; Stop 11/21/18 at 08:36; Status DC Clonazepam (KlonoPIN) 2 mg BID PO Last administered on 11/23/18at 08:10; Start 11/21/18 at 09:00; Stop 11/23/18 at 13:05; Status DC Diphenhydramine HCl (Benadryl) 50 mg Q4HP PRN PO ANXIETY/AGITATION Last administered on 11/29/18at 17:50; Start 11/16/18 at 13:15 Diphenhydramine HCl (Benadryl) 50 mg STAT STAT IM Last administered on 11/17/18 21:56; Start 11/17/18 at 21:22; Stop 11/17/18 at 21:24; Status DC Diphenhydramine HCl (Benadryl) 50 mg STAT STAT IM ; Start 11/17/18 at 21:34; Stop 11/17/18 at 21:35; Status Cancel Haloperidol (Haldol) 5 mg Q6HP PRN PO AGITATION Last administered on 11/27/18at 20:22; Start 11/26/18 at 09:30; Stop 11/28/18 at 09:31; Status DC Haloperidol (Haldol) 5 mg STAT STAT IM Last administered on 11/17/18at 23:34; Start 11/17/18 at 23:14; Stop 11/17/18 at 23:16; Status DC Haloperidol (Haldol) 10 mg BID PO Last administered on 11/29/18 08:19; Start 11/28/18 at 21:00 Haloperidol (Haldol) 10 mg STAT STAT IM Last administered on 11/17/18 21:56; Start 11/17/18 at 21:22; Stop 11/17/18 at 21:24; Status DC Haloperidol (Haldol) 10 mg STAT STAT IM ; Start 11/17/18 at 21:34; Stop 11/17/18 at 21:35; Status Cancel Home Med (Med Rec Complete!) ASDIRECTED XX ; Start 11/15/18 at 12:45; Stop 11/15/18 at 12:49; Status DC Hydroxyzine HCl (Atarax) 50 mg Q4HP PRN PO ANXIETY/AGITATION; Start 11/29/18 at 12:15 Lorazepam (Ativan) 1 mg Q4HP PRN PO ANXIETY/AGITATION Last administered on 11/16/18at 22:23; Start 11/16/18 at 22:15; Stop 11/17/18 at 10:18; Status DC Lorazepam (Ativan) 1 mg STAT STAT IM Last administered on 11/17/18at 23:34; Start 11/17/18 at 23:14; Stop 11/17/18 at 23:16; Status DC Lorazepam (Ativan) 2 mg Q6HP PRN PO ANXIETY/AGITATION Last administered on 11/16/18at 08:18; Start 11/15/18 at 16:45; Stop 11/16/18 at 13:05; Status DC Lorazepam (Ativan) 2 mg STAT STAT IM Last administered on 11/17/18at 21:55; Start 11/17/18 at 21:22; Stop 11/17/18 at 21:24; Status DC Lorazepam (Ativan) 2 mg STAT STAT IM ; Start 11/17/18 at 21:34; Stop 11/17/18 at 21:35; Status Cancel Magnesium Hydroxide (Milk Of Magnesia) 30 ml DAILYPRN PRN PO CONSTIPATION; Start 11/15/18 at 14:30 Niacin (Niaspan) 500 mg BID PO Last administered on 11/30/18at 08:07; Start 11/22/18 at 14:20 Niacin (Niaspan) 500 mg QHS PO ; Start 11/22/18 at 21:00; Stop 11/22/18 at 21:00; Status DC Nicotine (Nicoderm Cq 7 Mg) 1 patch DAILY TD Last administered on 11/30/18at 08:07; Start 11/16/18 at 09:00 Non-Formulary Medication ( See Comment Field Below ) SEE COMMENTS SECTION 1T@10 XX ; Start 11/18/18 at 10:00; Stop 11/19/18 at 09:59; Status UNV Non-Formulary Medication ( See Comment Field Below ) SEE LABEL COMMENTS DAILY XX ; Start 11/16/18 at 09:00 Olanzapine (ZyPREXA ZYDIS) 5 mg Q4HP PRN PO AGITATION; Start 11/15/18 at 14:30; Status Cancel Olanzapine (ZyPREXA ZYDIS) 10 mg Q4HP PRN PO ANXIETY/AGITATION Last administered on 11/29/18at 11:11; Start 11/16/18 at 13:15; Stop 11/29/18 at 12:16; Status DC Paliperidone (Invega) 3 mg QAM PO Last administered on 11/20/18at 08:40; Start 11/16/18 at 13:00; Stop 11/22/18 at 10:13; Status DC Paliperidone (Invega) 3 mg QHS PO Last administered on 11/17/18at 21:12; Start 11/16/18 at 21:00; Stop 11/18/18 at 13:08; Status DC Paliperidone (Invega) 6 mg QHS PO ; Start 11/18/18 at 21:00; Stop 11/22/18 at 10:13; Status DC Quetiapine Fumarate (SEROquel) 50 mg QHS PO Last administered on 11/28/18at 20:12; Start 11/15/18 at 21:00; Stop 11/29/18 at 12:16; Status DC Allergies Coded Allergies: No Known Allergies (Verified , 03/18/12) DEMARCUS PÉREZ DO Nov 30, 2018 10:14 am
[2018-11-30] MEDS: hydrOXYzine 50 MG TAB PO PRN (15:26)
[2018-11-30 18:34] VITALS: BP 141/89
[2018-12-01 07:01] VITALS: BP 136/81
[2018-12-01] MEDS: **PENDING PPD ENTRY XX SCH (08:23)
[2018-12-01] MEDS: NIACIN SR (NIASPAN) 500 MG TAB PO SCH ×2 (08:24→21:00)
[2018-12-01] MEDS: NICOTINE 7 MG/24 HR TRANSDERMAL TD SCH (08:24)
[2018-12-01] MEDS: HALOPERIDOL 10 MG TAB PO SCH ×2 (09:00→21:00)
[2018-12-01] MEDS: diphenhydrAMINE 50 MG CAP PO PRN ×2 (09:09→17:49)
--- NOTE | 2018-12-01 12:35 | MHIPNPDOC ---
[facility] Progress Note Progress Note DATE OF SERVICE: 12/01/18 HISTORY: Patient is a 33 -year-old , male, with a history of paranoid schizophrenia, noncompliance medications and follow-up, multiple admits [facility] for psychosis who was brought to Ed by PD after a woman called them for help due to pt following her home in his car b/c she drove a red vehicle and threatening to slash her tires with a screwdriver. Pt was found by police in his car showing off a screwdriver in a threatening manor to passers by. Pt attempted to drive off from police but caught quickly when blocked off by 2 police cars. Pt told police he was following the woman b/c she was threatening and following him. Also stated she drove a red car and it was part of a gov't conspiracy b/c there are too many red, white, and blue cars for [place] which is a poor community. Pt in the ED endorsing gov't conspiracy as stated previously and that they were listening devices in nonspecific places. Pt endorsed paranoia regarding congregation and physicians in the ED due to physicians believing he needs antipsychotics when he thinks he needs adderall (this is not new to the pt). Is noncompliant with medications (1mo) and follow-up. Fires physicians that think he needs antipsychotics. VITAL SIGNS: See below. OBJECTIVE: Pt states "all I need is benadryl, I like that. I don't need antipsychotics, I've been trying to be on natural medicine for the past 10yrs but they keep putting me on antipsychotics [noncompliant on routinely] and the sheriffs keep picking me up for the past 3yrs and locking me up in here for no reason." Referred to the last August 2017 when I had him as a pt after picked up by police under a 9.41 for psychosis when he believed he was [place] and stated "No, the spirit of Charlee was with me... 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 Continues to have paranoid delusions everything stated on Thursday: "people messing with me" that he has very poor insight into and continues to believe in gov't conspiracy with drowns in [facility] shoot off sides of road with blue and white lights, too many [place] [facility] [place] the area to afford, counting cars passing intersection "72 one day" (stated today he would be "suspicious" if he sees a lot of cars in [place] when he goes home and go to the store and tell everyone it's the cartel and the gov't who works with the cartel."), cars following him in front of him or when turning at the intersection as him, waving screw drivers at red/white/blue cars in threatening manner (doesn't believe that was threatening even though sheriffs reportedly saw him doing it and reported in to be threatening the way he was waving the screw courtesy car driver) to mean "don't mess with me" as they passed by, and following a woman home that was in a red car and threatening to slash here tires b/c she was following him even though she was driving in front of him. Woman called police who found pt on side of road waving screw courtesy car driver at cars passing and attempted to evade police on car concha and was caught when blocked in by photocopy operator cars. When asked about his behavior he states there's nothing wrong with it or dangerous about it b/c "people, the gov't" are messing with him. Endorses ideas of reference as well as states "have you have watched [employer]... every thing is red, white, and blue... it's a gov't conspiracy." Pt does not believe he has diagnosis of schizophrenia on basis he denies AH and continuously advise and attempt to educate him that schizophrenia also includes paranoia, delusions, ideas of reference, thought insertion/broadcasting, etc but refutes all of it by denying he has paranoid delusions even though it is evident they continue. States benadryl is helpful for anxiety. Insight and judgement remain poor. Court hearing for retention today. MENTAL STATUS EXAM: He is dressed hosp scrubs. Uncooperative, antagonistic shouting at me about how there's nothing wrong with me, he doesn't need medications, and is right "if I go home and see more than 30 some odd cars in [place] I'm going to be suspicious and go to the general store b/c the cartel's in town and the DGSE't is working with the [employer]!" States "the red white and blue cars were following me" in r eference to following a woman home and threatening to slash her tires with a screwdriver as to why he did that. His psychomotor activity is agitated and verbally aggressive, defensive, antagonistic. Makes fair eye contact. Mood is agitated and confrontational, very labile. Affect is agitated, very labile. Speech rate is reg rate, volume is loud/shouting, reg rhythm. Denied any suicidal or homicidal ideas although doesn't hesitate to say he'll hurt anyone he feels is messing with him. Continues to have grandiose and paranoid delusions, ideas of reference mostly involving the gov't and red/white/blue. His insight and judgment are very poor and impaired. He is alert, oriented to time, place, and person. DIAGNOSIS: Paranoid Schizophrenia PLAN: continue to encourage me compliance with plan for haldol dec 100mg IM for psychosis and history noncompliance haldol 10mg bid haldol 10mg q6hr prn anxiety/agitation vistaril 50mg q6hr prn anxiety benadryl 50mg q6hr prn anxiety Vital Signs Vital Signs Date Time Temp Pulse Resp B/P (MAP) Pulse Ox O2 Delivery O2 Flow Rate FiO2 12/01/18 08:40 Room Air 12/01/18 07:01 97.5 90 14 136/81 (99) 11/29/18 18:00 97 Current Medications Current Medications Acetaminophen (Tylenol Tab) 650 mg Q6HP PRN PO HEADACHE or DISCOMFORT; Start at 14:30 Al Hydrox/Mg Hydrox/Simethicone (Mylanta) 30 ml Q4HP PRN PO HEARTBURN/INDIGESTION; Start 11/15/18 at 14:30 Aripiprazole (AbiLIFY) 15 mg DAILY PO Last administered on 11/22/18at 10:27; Start 11/22/18 at 09:00; Stop 11/22/18 at 10:25; Status DC Aripiprazole (AbiLIFY) 15 mg QAM PO Last administered on 11/23/18at 08:11; Start 11/23/18 at 09:00; Stop 11/23/18 at 13:13; Status DC Aripiprazole (AbiLIFY) 20 mg QAM PO Last administered on 11/29/18 08:18; Start 11/24/18 at 09:00; Stop 11/29/18 at 11:48; Status DC Aripiprazole (Abilify Maintena) 400 mg Q30D IM Last administered on 11/25/18at 14:45; Start 11/25/18 at 09:00; Stop 11/29/18 at 11:50; Status DC Chlorpromazine HCl (Thorazine) 50 mg Q6HP PRN PO AGITATION Last administered on 11/29/18 12:13; Start 11/28/18 at 09:30; Stop 11/30/18 at 10:15; Status DC Clonazepam (KlonoPIN) 0.5 mg BID PRN PO ANXIETY/AGITATION Last administered on 11/30/18at 20:24; Start 11/26/18 at 09:30 Clonazepam (KlonoPIN) 1 mg ACS PO Last administered on 11/19/18at 17:15; Start 11/19/18 at 17:30; Stop 11/20/18 at 16:43; Status DC Clonazepam (KlonoPIN) 1 mg BID PO Last administered on 11/25/18at 08:37; Start 11/23/18 at 21:00; Stop 11/25/18 at 08:57; Status DC Clonazepam (KlonoPIN) 1 mg BID PRN PO anxiety Last administered on 11/25/18at 20:13; Start 11/25/18 at 09:00; Stop 11/26/18 at 09:21; Status DC Clonazepam (KlonoPIN) 2 mg ACS PO ; Start 11/20/18 at 17:30; Stop 11/21/18 at 08:36; Status DC Clonazepam (KlonoPIN) 2 mg BID PO Last administered on 11/23/18at 08:10; Start 11/21/18 at 09:00; Stop 11/23/18 at 13:05; Status DC Diphenhydramine HCl (Benadryl) 50 mg Q4HP PRN PO ANXIETY/AGITATION Last administered on 12/01/18at 09:09; Start 11/16/18 at 13:15 Diphenhydramine HCl (Benadryl) 50 mg STAT STAT IM Last administered on 11/17/18 21:56; Start 11/17/18 at 21:22; Stop 11/17/18 at 21:24; Status DC Diphenhydramine HCl (Benadryl) 50 mg STAT STAT IM ; Start 11/17/18 at 21:34; Stop 11/17/18 at 21:35; Status Cancel Haloperidol (Haldol) 5 mg Q6HP PRN PO AGITATION Last administered on 11/27/18at 20:22; Start 11/26/18 at 09:30; Stop 11/28/18 at 09:31; Status DC Haloperidol (Haldol) 5 mg STAT STAT IM Last administered on 11/17/18 23:34; Start 11/17/18 at 23:14; Stop 11/17/18 at 23:16; Status DC Haloperidol (Haldol) 10 mg BID PO Last administered on 11/30/18at 10:57; Start 11/28/18 at 21:00 Haloperidol (Haldol) 10 mg Q6HP PRN PO ANXIETY/AGITATION; Start 11/30/18 at 10:15 Haloperidol (Haldol) 10 mg STAT STAT IM Last administered on 11/17/18 21:56; Start 11/17/18 at 21:22; Stop 11/17/18 at 21:24; Status DC Haloperidol (Haldol) 10 mg STAT STAT IM ; Start 11/17/18 at 21:34; Stop 11/17/18 at 21:35; Status Cancel Home Med (Med Rec Complete!) ASDIRECTED XX ; Start 11/15/18 at 12:45; Stop 11/15/18 at 12:49; Status DC Hydroxyzine HCl (Atarax) 50 mg Q4HP PRN PO ANXIETY/AGITATION Last administered on 11/30/18at 15:26; Start 11/29/18 at 12:15 Lorazepam (Ativan) 1 mg Q4HP PRN PO ANXIETY/AGITATION Last administered on 11/16/18at 22:23; Start 11/16/18 at 22:15; Stop 11/17/18 at 10:18; Status DC Lorazepam (Ativan) 1 mg STAT STAT IM Last administered on 11/17/18 23:34; Start 11/17/18 at 23:14; Stop 11/17/18 at 23:16; Status DC Lorazepam (Ativan) 2 mg Q6HP PRN PO ANXIETY/AGITATION Last administered on 11/16/18at 08:18; Start 11/15/18 at 16:45; Stop 11/16/18 at 13:05; Status DC Lorazepam (Ativan) 2 mg STAT STAT IM Last administered on 11/17/18at 21:55; Start 11/17/18 at 21:22; Stop 11/17/18 at 21:24; Status DC Lorazepam (Ativan) 2 mg STAT STAT IM ; Start 11/17/18 at 21:34; Stop 11/17/18 at 21:35; Status Cancel Magnesium Hydroxide (Milk Of Magnesia) 30 ml DAILYPRN PRN PO CONSTIPATION; Start 11/15/18 at 14:30 Niacin (Niaspan) 500 mg BID PO Last administered on 12/01/18at 08:24; Start 11/22/18 at 14:20 Niacin (Niaspan) 500 mg QHS PO ; Start 11/22/18 at 21:00; Stop 11/22/18 at 21:00; Status DC Nicotine (Nicoderm Cq 7 Mg) 1 patch DAILY TD Last administered on 12/01/18at 08:24; Start 11/16/18 at 09:00 Non-Formulary Medication ( See Comment Field Below ) SEE COMMENTS SECTION 1T@10 XX ; Start 11/18/18 at 10:00; Stop 11/19/18 at 09:59; Status UNV Non-Formulary Medication ( See Comment Field Below ) SEE LABEL COMMENTS DAILY XX ; Start 11/16/18 at 09:00 Olanzapine (ZyPREXA ZYDIS) 5 mg Q4HP PRN PO AGITATION; Start 11/15/18 at 14:30; Status Cancel Olanzapine (ZyPREXA ZYDIS) 10 mg Q4HP PRN PO ANXIETY/AGITATION Last administered on 11/29/18at 11:11; Start 11/16/18 at 13:15; Stop 11/29/18 at 12:16; Status DC Paliperidone (Invega) 3 mg QAM PO Last administered on 11/20/18at 08:40; Start 11/16/18 at 13:00; Stop 11/22/18 at 10:13; Status DC Paliperidone (Invega) 3 mg QHS PO Last administered on 11/17/18at 21:12; Start 11/16/18 at 21:00; Stop 11/18/18 at 13:08; Status DC Paliperidone (Invega) 6 mg QHS PO ; Start 11/18/18 at 21:00; Stop 11/22/18 at 10:13; Status DC Quetiapine Fumarate (SEROquel) 50 mg QHS PO Last administered on 11/28/18at 20:12; Start 11/15/18 at 21:00; Stop 11/29/18 at 12:16; Status DC Allergies Coded Allergies: No Known Allergies (Verified , 03/18/12) DEMARCUS PÉREZ DO Dec 01, 2018 12:35 pm
[2018-12-01] MEDS: clonazePAM 0.5 MG TAB PO PRN ×2 (13:17→20:27)
[2018-12-01] MEDS: HALOPERIDOL 10 MG TAB PO PRN (17:49)
[2018-12-01 18:00] VITALS: BP 135/85
[2018-12-02 07:11] VITALS: BP 128/82
[2018-12-02] MEDS: HALOPERIDOL 10 MG TAB PO SCH ×2 (08:08→21:00)
[2018-12-02] MEDS: NIACIN SR (NIASPAN) 500 MG TAB PO SCH ×2 (08:08→21:00)
[2018-12-02] MEDS: NICOTINE 7 MG/24 HR TRANSDERMAL TD SCH (08:09)
[2018-12-02] MEDS: **PENDING PPD ENTRY XX SCH (08:10)
--- NOTE | 2018-12-02 11:38 | MHIPNPDOC ---
[facility] Progress Note Progress Note DATE OF SERVICE: 12/02/18 Patient is a 33 -year-old , male, with a history of paranoid schizophrenia, noncompliance medications and follow-up, multiple admits [facility] for psychosis who was brought to Ed by PD after a woman called them for help due to pt following her home in his car b/c she drove a red vehicle and threatening to slash her tires with a screwdriver. Pt was found by police in his car showing off a screwdriver in a threatening manor to passers by. Pt attempted to drive off from police but caught quickly when blocked off by 2 police cars. Pt told police he was following the woman b/c she was threatening and following him. Also stated she drove a red car and it was part of a gov't conspiracy b/c there are too many red, white, and blue cars for [place] which is a poor community. Pt in the ED endorsing gov't conspiracy as stated previously and that they were listening devices in nonspecific places. Pt endorsed paranoia regarding jain and physicians in the ED due to physicians believing he needs antipsychotics when he thinks he needs adderall (this is not new to the pt). Is noncompliant with medications (1mo) and follow-up. Fires physicians that think he needs antipsychotics. VITAL SIGNS: See below. OBJECTIVE: Had court hearing for retention which was passed and ruling was taht pt is m entally ill and is likely to be a threat to the safety of others base on testimony and submitting records. Pt after court antagonizing toward me angry that he will be retained for treatment. Pt came in to my office this am w/o being called to let me know he took his haldol oral last night and this morning and asked if he could take haldol dec today and go home. Advised plan to m onitor pt on oral haldol with daily compliance to show tolerance an improvement in symptoms prior to administering haldol dec. Pt just walked out stating he want to go home b/c he missed his family and went back to his room to bed. During court yesterday pt again mentioned the same paranoid delusions/reasons he is here ("followed a woman home in a red car b/c of [employer] and threatened to slash her tires with the screwdriver I had b/c I wanted to talk to her and to find out if there was some type of dealership deal on red, white, and blue cars for people relating to the gov't.") Again, testified in court as previously stated in daily records: "all I need is benadryl, I like that. I don't need antipsychotics, I've been trying to be on natural medicine for the past 10yrs but they keep putting me on antipsychotics [noncompliant on routinely] and the carbide die maker keep picking me up for the past 3yrs and locking me up in here for no reason." Referred to the last August 2017 when I had him as a pt after picked up by police under a 9.41 for psychosis when he believed he was Charlee and stated "No, the spirit of Armenkarlaalanis was with me... 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[facility]." Continues to have paranoid delusions everything stated on Thursday: "people messing with me" that he has very poor insight into and continues to believe in gov't conspiracy with drowns in [place] shoot off sides of road with blue and white lights, too many red/white/blue cars in [facility] for the area to afford, counting cars passing intersection "72 one day" (stated today he would be "suspicious" if he sees a lot of cars in [place] when he goes home and go to the store and tell everyone it's the cartel and the gov't who works with the cartel."), cars following him in front of him or when turning at the intersection as him, waving screw drivers at red/white/blue cars in threatening manner (doesn't believe that was threatening even though carbide die maker reportedly saw him doing it and reported in to be threatening the way he was waving the screw personal driver) to mean "don't mess with me" as they passed by, and following a woman home that was in a red car and th reatening to slash here tires b/c she was following him even though she was driving in front of him. Woman called police who found pt on side of road waving screw personal driver at cars passing and attempted to evade police on car concha and was caught when blocked in by copy center operator cars. When asked about his behavior he states there's nothing wrong with it or dangerous about it b/c "people, the gov't" are messing with him. Endorses ideas of reference as well as states "have you have watched [employer]... every thing is red, white, and blue... it's a gov't conspiracy." Pt does not believe he has diagnosis of schizophrenia on basis he denies AH and continuously advise and attempt to educate him that schizophrenia also includes paranoia, delusions, ideas of reference, thought insertion/broadcasting, etc but refutes all of it by denying he has paranoid delusions even though it is evident they continue. States benadryl is helpful for anxiety. Insight and judgement remain poor. Court hearing for retention today. MENTAL STATUS EXAM: He is dressed hosp scrubs. Cooperative, appears to have stopped fighting the fact that he will be here for treatment but doesn' appear particularly interested in participating in his treatment. Only agrees to take medications b/c he wants to go home which he admits to but denies need for them for treatment schizophrenia. Paraniod delusions and paranoia evident as stated yesterday "if I go home and see more than 30 some odd cars in [place] I'm going to be suspicious and go to the general store b/c the [employer] in [facility] and the gov't is working with the [employer]!" States "the red white and blue cars were following me" in reference to following a woman home and threatening to slash her tires with a screwdriver as to why he did that. His psychomotor activity is labile, agitated and verbally aggressive, defensive, antagonistic depending on circumstances and pt either not getting what he wants or being disagreed with. Makes fair eye contact. Mood is agitated and confrontational, very labile depending on circumstances as stated previous. Affect is agitated, very labile. Speech rate is reg rate, volume is loud/shouting, reg rhythm. Denied any suicidal or homicidal ideas although doesn't hesitate to say he'll hurt anyone he feels is messing with him. Continues to have grandiose and paranoid delusions, ideas of reference mostly involving the gov't and red/white/blue. His insight and judgment are very poor and impaired. He is alert, oriented to time, place, and person. DIAGNOSIS: Paranoid Schizophrenia PLAN: continue to encourage me compliance with plan for haldol dec 100mg IM for psychosis and history noncompliance haldol 10mg bid haldol 10mg q6hr prn anxiety/agitation vistaril 50mg q6hr prn anxiety benadryl 50mg q6hr prn anxiety Vital Signs Vital Signs Date Time Temp Pulse Resp B/P (MAP) Pulse Ox O2 Delivery O2 Flow Rate FiO2 12/02/18 08:25 Room Air 12/02/18 07:11 98.6 90 14 128/82 (97) 12/01/18 18:00 97 Current Medications Current Medications Acetaminophen (Tylenol Tab) 650 mg Q6HP PRN PO HEADACHE or DISCOMFORT; Start 11/15/18 at 14:30 Al Hydrox/Mg Hydrox/Simethicone (Mylanta) 30 ml Q4HP PRN PO HEARTBURN/INDIGESTION; Start 11/15/18 at 14:30 Aripiprazole (AbiLIFY) 15 mg DAILY PO Last administered on 11/22/18at 10:27; Start 11/22/18 at 09:00; Stop 11/22/18 at 10:25; Status DC Aripiprazole (AbiLIFY) 15 mg QAM PO Last administered on 11/23/18at 08:11; Start 11/23/18 at 09:00; Stop 11/23/18 at 13:13; Status DC Aripiprazole (AbiLIFY) 20 mg QAM PO Last administered on 11/29/18at 08:18; Start 11/24/18 at 09:00; Stop 11/29/18 at 11:48; Status DC Aripiprazole (Abilify Maintena) 400 mg Q30D IM Last administered on 11/25/18at 14:45; Start 11/25/18 at 09:00; Stop 11/29/18 at 11:50; Status DC Chlorpromazine HCl (Thorazine) 50 mg Q6HP PRN PO AGITATION Last administered on 11/29/18at 12:13; Start 11/28/18 at 09:30; Stop 11/30/18 at 10:15; Status DC Clonazepam (KlonoPIN) 0.5 mg BID PRN PO ANXIETY/AGITATION Last administered on 12/01/18 20:27; Start 11/26/18 at 09:30 Clonazepam (KlonoPIN) 1 mg ACS PO Last administered on 11/19/18at 17:15; Start 11/19/18 at 17:30; Stop 11/20/18 at 16:43; Status DC Clonazepam (KlonoPIN) 1 mg BID PO Last administered on 11/25/18at 08:37; Start 11/23/18 at 21:00; Stop 11/25/18 at 08:57; Status DC Clonazepam (KlonoPIN) 1 mg BID PRN PO anxiety Last administered on 11/25/18at 20:13; Start 11/25/18 at 09:00; Stop 11/26/18 at 09:21; Status DC Clonazepam (KlonoPIN) 2 mg ACS PO ; Start 11/20/18 at 17:30; Stop 11/21/18 at 08:36; Status DC Clonazepam (KlonoPIN) 2 mg BID PO Last administered on 11/23/18at 08:10; Start 11/21/18 at 09:00; Stop 11/23/18 at 13:05; Status DC Diphenhydramine HCl (Benadryl) 50 mg Q4HP PRN PO ANXIETY/AGITATION Last administered on 12/01/18at 17:49; Start 11/16/18 at 13:15 Diphenhydramine HCl (Benadryl) 50 mg STAT STAT IM Last administered on 11/17/18 21:56; Start 11/17/18 at 21:22; Stop 11/17/18 at 21:24; Status DC Diphenhydramine HCl (Benadryl) 50 mg STAT STAT IM ; Start 11/17/18 at 21:34; Stop 11/17/18 at 21:35; Status Cancel Haloperidol (Haldol) 5 mg Q6HP PRN PO AGITATION Last administered on 11/27/18at 20:22; Start 11/26/18 at 09:30; Stop 11/28/18 at 09:31; Status DC Haloperidol (Haldol) 5 mg STAT STAT IM Last administered on 11/17/18at 23:34; Start 11/17/18 at 23:14; Stop 11/17/18 at 23:16; Status DC Haloperidol (Haldol) 10 mg BID PO Last administered on 12/02/18at 08:08; Start 11/28/18 at 21:00 Haloperidol (Haldol) 10 mg Q6HP PRN PO ANXIETY/AGITATION Last administered on 12/01/18at 17:49; Start 11/30/18 at 10:15 Haloperidol (Haldol) 10 mg STAT STAT IM Last administered on 11/17/18 21:56; Start 11/17/18 at 21:22; Stop 11/17/18 at 21:24; Status DC Haloperidol (Haldol) 10 mg STAT STAT IM ; Start 11/17/18 at 21:34; Stop 11/17/18 at 21:35; Status Cancel Home Med (Med Rec Complete!) ASDIRECTED XX ; Start 11/15/18 at 12:45; Stop 11/15/18 at 12:49; Status DC Hydroxyzine HCl (Atarax) 50 mg Q4HP PRN PO ANXIETY/AGITATION Last administered on 11/30/18at 15:26; Start 11/29/18 at 12:15 Lorazepam (Ativan) 1 mg Q4HP PRN PO ANXIETY/AGITATION Last administered on 11/16/18 22:23; Start 11/16/18 at 22:15; Stop 11/17/18 at 10:18; Status DC Lorazepam (Ativan) 1 mg STAT STAT IM Last administered on 11/17/18 23:34; Start 11/17/18 at 23:14; Stop 11/17/18 at 23:16; Status DC Lorazepam (Ativan) 2 mg Q6HP PRN PO ANXIETY/AGITATION Last administered on 11/16/18 08:18; Start 11/15/18 at 16:45; Stop 11/16/18 at 13:05; Status DC Lorazepam (Ativan) 2 mg STAT STAT IM Last administered on 11/17/18 21:55; Start 11/17/18 at 21:22; Stop 11/17/18 at 21:24; Status DC Lorazepam (Ativan) 2 mg STAT STAT IM ; Start 11/17/18 at 21:34; Stop 11/17/18 at 21:35; Status Cancel Magnesium Hydroxide (Milk Of Magnesia) 30 ml DAILYPRN PRN PO CONSTIPATION; Start 11/15/18 at 14:30 Miscellaneous (Unresolved Clarification Entry) SEE LABEL COMMENTS DAILY XX ; Start 12/02/18 at 09:00; Stop 12/02/18 at 10:28; Status DC Niacin (Niaspan) 500 mg BID PO Last administered on 12/02/18at 08:08; Start 11/22/18 at 14:20 Niacin (Niaspan) 500 mg QHS PO ; Start 11/22/18 at 21:00; Stop 11/22/18 at 21:00; Status DC Nicotine (Nicoderm Cq 7 Mg) 1 patch DAILY TD Last administered on 12/02/18at 08:09; Start 11/16/18 at 09:00 Non-Formulary Medication ( See Comment Field Below ) SEE COMMENTS SECTION 1T@10 XX ; Start 11/18/18 at 10:00; Stop 11/19/18 at 09:59; Status UNV Non-Formulary Medication ( See Comment Field Below ) SEE LABEL COMMENTS DAILY XX ; Start 11/16/18 at 09:00 Olanzapine (ZyPREXA ZYDIS) 5 mg Q4HP PRN PO AGITATION; Start 11/15/18 at 14:30; Status Cancel Olanzapine (ZyPREXA ZYDIS) 10 mg Q4HP PRN PO ANXIETY/AGITATION Last administered on 11/29/18at 11:11; Start 11/16/18 at 13:15; Stop 11/29/18 at 12:16; Status DC Paliperidone (Invega) 3 mg QAM PO Last administered on 11/20/18at 08:40; Start 11/16/18 at 13:00; Stop 11/22/18 at 10:13; Status DC Paliperidone (Invega) 3 mg QHS PO Last administered on 11/17/18at 21:12; Start 11/16/18 at 21:00; Stop 11/18/18 at 13:08; Status DC Paliperidone (Invega) 6 mg QHS PO ; Start 11/18/18 at 21:00; Stop 11/22/18 at 10:13; Status DC Quetiapine Fumarate (SEROquel) 50 mg QHS PO Last administered on 11/28/18at 20:12; Start 11/15/18 at 21:00; Stop 11/29/18 at 12:16; Status DC Allergies Coded Allergies: No Known Allergies (Verified , 03/18/12) DEMARCUS PÉREZ DO Dec 02, 2018 11:38 am
[2018-12-02] MEDS: diphenhydrAMINE 50 MG CAP PO PRN (13:07)
[2018-12-02] MEDS: clonazePAM 0.5 MG TAB PO PRN (14:18)
[2018-12-02] MEDS: HALOPERIDOL 10 MG TAB PO PRN (14:56)
[2018-12-02 18:10] VITALS: BP 137/88
[2018-12-03] MEDS: HALOPERIDOL 10 MG TAB PO SCH ×3 (00:40→20:22)
[2018-12-03 07:00] VITALS: BP 145/89
[2018-12-03] MEDS: diphenhydrAMINE 50 MG CAP PO PRN ×3 (07:47→20:20)
[2018-12-03] MEDS: NIACIN SR (NIASPAN) 500 MG TAB PO SCH ×2 (08:02→20:20)
[2018-12-03] MEDS: NICOTINE 7 MG/24 HR TRANSDERMAL TD SCH (08:02)
[2018-12-03] MEDS: clonazePAM 0.5 MG TAB PO PRN ×2 (08:09→20:20)
[2018-12-03] MEDS: hydrOXYzine 50 MG TAB PO PRN ×2 (08:51→20:20)
[2018-12-03] MEDS ORDERED: BENZTROPINE 1 MG TAB PO ONE (09:15)
[2018-12-03] MEDS ORDERED: PROPRANOLOL 10 MG TAB PO ONE (09:15)
[2018-12-03] MEDS ORDERED: TUBERCULIN PPD 5 UNITS/0.1 ML ID ONE (09:15)
--- NOTE | 2018-12-03 09:29 | MHIPNPDOC ---
[facility] Progress Note Progress Note DATE OF SERVICE: 12/03/18 HISTORY: Patient is a 33 -year-old , male, with a history of paranoid schizophrenia, noncompliance medications and follow-up, multiple admits [facility] for psychosis who was brought to Ed by PD after a woman called them for help due to pt following her home in his car b/c she drove a red vehicle and threatening to slash her tires with a screwdriver. Pt was found by police in his car showing off a screwdriver in a threatening manor to passers by. Pt attempted to drive off from police but caught quickly when blocked off by 2 police cars. Pt told police he was following the woman b/c she was threatening and following him. Also stated she drove a red car and it was part of a gov't conspiracy b/c there are too many red, white, and blue cars for [place] which is a poor community. Pt in the ED endorsing gov't conspiracy as stated previously and that they were listening devices in nonspecific places. Pt endorsed paranoia regarding judaism and physicians in the ED due to physicians believing he needs antipsychotics when he thinks he needs adderall (this is not new to the pt). Is noncompliant with medications (1mo) and follow-up. Fires physicians that think he needs antipsychotics. VITAL SIGNS: See below. Per 11/01/18 note: "Had court hearing for retention which was passed and ruling was taht pt is mentally ill and is likely to be a threat to the safety of others base on testimony and submitting records. Pt after court antagonizing toward me angry that he will be retained for treatment. Pt came in to my office this am w/o being called to let me know he took his haldol oral last night and this morning and asked if he could take haldol dec today and go home. Advised plan to monitor pt on oral haldol with daily compliance to show tolerance an improvement in symptoms prior to administering haldol dec. Pt just walked out stating he want to go home b/c he missed his family and went back to his room to bed. During court yesterday pt again mentioned the same paranoid delusions/reasons he is here ("followed a woman home in a red car b/c of [employer] and threatened to slash her tires with the screwdriver I had b/c I wanted to talk to her and to find out if there was some type of dealership deal on red, white, and blue cars for people relating to the gov't.") Again, testified in court as previously stated in daily records: "all I need is benadryl, I like that. I don't need antipsychotics, I've been trying to be on natural medicine for the past 10yrs but they keep putting me on antipsychotics [noncompliant on routinely] and the claims analyst keep picking me up for the past 3yrs and locking me up in here for no reason." Referred to the last August 2017 when I had him as a pt after picked up by police under a 9.41 for psychosis when he believed he was Charlee and stated "No, the spirit of Charlee was with me... 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[facility]." Continues to have paranoid delusions everything stated on Thursday: "people messing with me" that he has very poor insight into and continues to believe in gov't conspiracy with [place] [facility] [place] off sides of road with blue and white lights, too many red/white/blue cars in [facility] for the area to afford, counting cars passing intersection "72 one day" (stated today he would be "suspicious" if he sees a lot of cars in [place] when he goes home and go to the store and tell everyone it's the cartel and the gov't who works with the cartel."), cars following him in front of him or when turning at the intersection as him, waving screw drivers at red/white/blue cars in threatening manner (doesn't believe that was threatening even though claims analyst reportedly saw him doing it and reported in to be threatening the way he was waving the screw otr company truck driver) to mean "don't mess with me" as they passed by, and following a woman home that was in a red car and threatening to slash here tires b/c she was following him even though she was driving in front of him. Woman called police who found pt on side of road waving screw otr company truck driver at cars passing and attempted to evade police on car concha and was caught when blocked in by blueprinting and photocopy supervisor cars. When asked about his behavior he states there's nothing wrong with it or dangerous about it b/c "people, the gov't" are messing with him. Endorses ideas of reference as well as states "have you have watched [employer]... every thing is red, white, and blue... it's a gov't conspiracy." Pt does not believe he has diagnosis of schizophrenia on basis he denies AH and continuously advise and attempt to educate him that schizophrenia also includes paranoia, delusions, ideas of reference, thought insertion/broadcasting, etc but refutes all of it by denying he has paranoid del usions even though it is evident they continue. States benadryl is helpful for anxiety. Insight and judgement remain poor." OBJECTIVE: Pt starting talking to me in milieu as soon as I walked into unit and followed me into my office, agitated, stating that haldol is making him feel "weird" and demanding to just take oral abilify and that's all. Explained to pt that Abilify does not appear to be beneficial for his symptoms as evident by the fact he does still have abilify mantena still in his system after given 1.5wks ago and does not appear beneficial. States he's taken all his prn's (not long prior to being seen) and stating he needs more b/c it's not working pt. Will start inderal for internal agitation (may be what he's feeling). Declined cogentin b /c he states he doesn't like it. Very poor insight and judgment. Pushing for d/c daily and gets agitated each time advised he's not safe for d/c. MENTAL STATUS EXAM: He is dressed hosp scrubs. Cooperative, appears to have stopped fighting the fact that he will be here for treatment but doesn't appear particularly interested in participating in his treatment. Only agrees to take medications b/c he wants to go home which he admits to but denies need for them for treatment schizophrenia. Paranoid delusions and paranoia evident as stated this week "if I go home and see more than 30 some odd cars in [place] I'm going to be suspicious and go to the general store b/c the cartel's in [facility] and the gov't is working with the [place]!" States "the red white and blue cars were following me" in reference to following a woman home and threatening to slash her tires with a screwdriver as to why he did that. His psychomotor activity is labile, agitated and verbally aggressive, defensive, antagonistic depending on circu mstances and pt either not getting what he wants or being disagreed with. Makes fair eye contact. Mood is agitated and confrontational, very labile depending on circumstances as stated previous. Affect is agitated, very labile. Speech rate is reg rate, volume is loud/shouting, reg rhythm. Denied any suicidal or homicidal ideas although doesn't hesitate to say he'll hurt anyone he feels is messing with him. Continues to have grandiose and paranoid delusions, ideas of reference mostly involving the gov't and red/white/blue. His insight and judgment are very poor and impaired. He is alert, oriented to time, place, and person. DIAGNOSIS: Paranoid Schizophrenia PLAN: continue to encourage me compliance with plan for haldol dec 100mg IM for psychosis and history noncompliance. Start inderal 10mg tid. haldol 10mg bid haldol 10mg q6hr prn anxiety/agitation vistaril 50mg q6hr prn anxiety benadryl 50mg q6hr prn anxiety Vital Signs Vital Signs Date Time Temp Pulse Resp B/P (MAP) Pulse Ox O2 Delivery O2 Flow Rate FiO2 12/03/18 08:36 Room Air 12/03/18 07:00 97.6 95 16 145/89 (107) 12/01/18 18:00 97 Current Medications Current Medications Acetaminophen (Tylenol Tab) 650 mg Q6HP PRN PO HEADACHE or DISCOMFORT; Start 11/15/18 at 14:30 Al Hydrox/Mg Hydrox/Simethicone (Mylanta) 30 ml Q4HP PRN PO HEARTBURN/INDIGESTION; Start 11/15/18 at 14:30 Aripiprazole (AbiLIFY) 15 mg DAILY PO Last administered on 11/22/18at 10:27; Start 11/22/18 at 09:00; Stop 11/22/18 at 10:25; Status DC Aripiprazole (AbiLIFY) 15 mg QAM PO Last administered on 11/23/18 08:11; Start 11/23/18 at 09:00; Stop 11/23/18 at 13:13; Status DC Aripiprazole (AbiLIFY) 20 mg QAM PO Last administered on 11/29/18 08:18; Start 11/24/18 at 09:00; Stop 11/29/18 at 11:48; Status DC Aripiprazole (Abilify Maintena) 400 mg Q30D IM Last administered on 11/25/18 14:45; Start 11/25/18 at 09:00; Stop 11/29/18 at 11:50; Status DC Chlorpromazine HCl (Thorazine) 50 mg Q6HP PRN PO AGITATION Last administered on 11/29/18 12:13; Start 11/28/18 at 09:30; Stop 11/30/18 at 10:15; Status DC Clonazepam (KlonoPIN) 0.5 mg BID PRN PO ANXIETY/AGITATION Last administered on 12/03/18 08:09; Start 11/26/18 at 09:30 Clonazepam (KlonoPIN) 1 mg ACS PO Last administered on 11/19/18 17:15; Start 11/19/18 at 17:30; Stop 11/20/18 at 16:43; Status DC Clonazepam (KlonoPIN) 1 mg BID PO Last administered on 11/25/18at 08:37; Start 11/23/18 at 21:00; Stop 11/25/18 at 08:57; Status DC Clonazepam (KlonoPIN) 1 mg BID PRN PO anxiety Last administered on 11/25/18at 20:13; Start 11/25/18 at 09:00; Stop 11/26/18 at 09:21; Status DC Clonazepam (KlonoPIN) 2 mg ACS PO ; Start 11/20/18 at 17:30; Stop 11/21/18 at 08:36; Status DC Clonazepam (KlonoPIN) 2 mg BID PO Last administered on 11/23/18at 08:10; Start 11/21/18 at 09:00; Stop 11/23/18 at 13:05; Status DC Diphenhydramine HCl (Benadryl) 50 mg Q4HP PRN PO ANXIETY/AGITATION Last administered on 12/03/18 07:47; Start 11/16/18 at 13:15 Diphenhydramine HCl (Benadryl) 50 mg STAT STAT IM Last administered on 11/17/18 21:56; Start 11/17/18 at 21:22; Stop 11/17/18 at 21:24; Status DC Diphenhydramine HCl (Benadryl) 50 mg STAT STAT IM ; Start 11/17/18 at 21:34; Stop 11/17/18 at 21:35; Status Cancel Haloperidol (Haldol) 5 mg Q6HP PRN PO AGITATION Last administered on 11/27/18 20:22; Start 11/26/18 at 09:30; Stop 11/28/18 at 09:31; Status DC Haloperidol (Haldol) 5 mg STAT STAT IM Last administered on 11/17/18 23:34; Start 11/17/18 at 23:14; Stop 11/17/18 at 23:16; Status DC Haloperidol (Haldol) 10 mg BID PO Last administered on 12/03/18 08:02; Start 11/28/18 at 21:00 Haloperidol (Haldol) 10 mg Q6HP PRN PO ANXIETY/AGITATION Last administered on 12/02/18 14:56; Start 11/30/18 at 10:15 Haloperidol (Haldol) 10 mg STAT STAT IM Last administered on 11/17/18 21:56; Start 11/17/18 at 21:22; Stop 11/17/18 at 21:24; Status DC Haloperidol (Haldol) 10 mg STAT STAT IM ; Start 11/17/18 at 21:34; Stop 11/17/18 at 21:35; Status Cancel Home Med (Med Rec Complete!) ASDIRECTED XX ; Start 11/15/18 at 12:45; Stop 11/15/18 at 12:49; Status DC Hydroxyzine HCl (Atarax) 50 mg Q4HP PRN PO ANXIETY/AGITATION Last administered on 12/03/18 08:51; Start 11/29/18 at 12:15 Lorazepam (Ativan) 1 mg Q4HP PRN PO ANXIETY/AGITATION Last administered on 11/16/18 22:23; Start 11/16/18 at 22:15; Stop 11/17/18 at 10:18; Status DC Lorazepam (Ativan) 1 mg STAT STAT IM Last administered on 11/17/18at 23:34; Start 11/17/18 at 23:14; Stop 11/17/18 at 23:16; Status DC Lorazepam (Ativan) 2 mg Q6HP PRN PO ANXIETY/AGITATION Last administered on 11/16/18at 08:18; Start 11/15/18 at 16:45; Stop 11/16/18 at 13:05; Status DC Lorazepam (Ativan) 2 mg STAT STAT IM Last administered on 11/17/18at 21:55; Start 11/17/18 at 21:22; Stop 11/17/18 at 21:24; Status DC Lorazepam (Ativan) 2 mg STAT STAT IM ; Start 11/17/18 at 21:34; Stop 11/17/18 at 21:35; Status Cancel Magnesium Hydroxide (Milk Of Magnesia) 30 ml DAILYPRN PRN PO CONSTIPATION; Start 11/15/18 at 14:30 Miscellaneous (Unresolved Clarification Entry) SEE LABEL COMMENTS DAILY XX ; Start 12/02/18 at 09:00; Stop 12/02/18 at 10:28; Status DC Niacin (Niaspan) 500 mg BID PO Last administered on 12/03/18at 08:02; Start 11/22/18 at 14:20 Niacin (Niaspan) 500 mg QHS PO ; Start 11/22/18 at 21:00; Stop 11/22/18 at 21:00; Status DC Nicotine (Nicoderm Cq 7 Mg) 1 patch DAILY TD Last administered on 12/03/18at 08:02; Start 11/16/18 at 09:00 Non-Formulary Medication ( See Comment Field Below ) SEE COMMENTS SECTION 1T@10 XX ; Start 12/05/18 at 10:00; Stop 12/06/18 at 09:59; Status UNV Non-Formulary Medication ( See Comment Field Below ) SEE COMMENTS SECTION 1T@10 XX ; Start 11/18/18 at 10:00; Stop 11/19/18 at 09:59; Status UNV Non-Formulary Medication ( See Comment Field Below ) SEE LABEL COMMENTS DAILY XX ; Start 11/16/18 at 09:00; Stop 12/03/18 at 09:04; Status DC Olanzapine (ZyPREXA ZYDIS) 5 mg Q4HP PRN PO AGITATION; Start 11/15/18 at 14 :30; Status Cancel Olanzapine (ZyPREXA ZYDIS) 10 mg Q4HP PRN PO ANXIETY/AGITATION Last administered on 11/29/18at 11:11; Start 11/16/18 at 13:15; Stop 11/29/18 at 12:16; Status DC Paliperidone (Invega) 3 mg QAM PO Last administered on 11/20/18at 08:40; Start 11/16/18 at 13:00; Stop 11/22/18 at 10:13; Status DC Paliperidone (Invega) 3 mg QHS PO Last administered on 11/17/18at 21:12; Start 11/16/18 at 21:00; Stop 11/18/18 at 13:08; Status DC Paliperidone (Invega) 6 mg QHS PO ; Start 11/18/18 at 21:00; Stop 11/22/18 at 10:13; Status DC Quetiapine Fumarate (SEROquel) 50 mg QHS PO Last administered on 11/28/18at 20:12; Start 11/15/18 at 21:00; Stop 11/29/18 at 12:16; Status DC Allergies Coded Allergies: No Known Allergies (Verified , 03/18/12) DEMARCUS PÉREZ DO Dec 03, 2018 9:29 am
[2018-12-03] MEDS: PROPRANOLOL 10 MG TAB PO SCH ×2 (16:21→20:22)
[2018-12-03 18:09] VITALS: BP 107/58
[2018-12-03] MEDS ORDERED: BENZTROPINE 1 MG TAB PO SCH (21:00)
[2018-12-04 07:14] VITALS: BP 123/74
[2018-12-04] MEDS: PROPRANOLOL 10 MG TAB PO SCH ×3 (08:10→21:08)
[2018-12-04] MEDS: NIACIN SR (NIASPAN) 500 MG TAB PO SCH ×2 (08:11→20:01)
[2018-12-04] MEDS: HALOPERIDOL 10 MG TAB PO SCH ×2 (08:11→20:01)
[2018-12-04] MEDS: NICOTINE 7 MG/24 HR TRANSDERMAL TD SCH (08:11)
[2018-12-04] MEDS: diphenhydrAMINE 50 MG CAP PO PRN ×3 (11:24→22:06)
[2018-12-04] MEDS: clonazePAM 0.5 MG TAB PO PRN (14:53)
[2018-12-04 18:00] VITALS: BP 126/70
[2018-12-05 06:38] VITALS: BP 134/60
[2018-12-05] MEDS: NIACIN SR (NIASPAN) 500 MG TAB PO SCH ×2 (08:20→20:57)
[2018-12-05] MEDS: HALOPERIDOL 10 MG TAB PO SCH ×2 (08:20→20:57)
[2018-12-05] MEDS: PROPRANOLOL 10 MG TAB PO SCH ×3 (08:20→20:58)
[2018-12-05] MEDS: NICOTINE 7 MG/24 HR TRANSDERMAL TD SCH (08:20)
[2018-12-05] MEDS ORDERED: PPD DOCUMENTATION ENTRY MISC XX ONE (10:00)
[2018-12-05] MEDS: diphenhydrAMINE 50 MG CAP PO PRN (13:32)
[2018-12-05 18:00] VITALS: BP 136/86
[2018-12-05] MEDS: clonazePAM 0.5 MG TAB PO PRN (18:27)
[2018-12-06 06:40] VITALS: BP 131/76
[2018-12-06] MEDS: PROPRANOLOL 10 MG TAB PO SCH ×3 (08:00→20:03)
[2018-12-06] MEDS: NIACIN SR (NIASPAN) 500 MG TAB PO SCH ×2 (08:00→21:03)
[2018-12-06] MEDS: NICOTINE 7 MG/24 HR TRANSDERMAL TD SCH (08:00)
[2018-12-06] MEDS: HALOPERIDOL 10 MG TAB PO SCH ×2 (08:01→20:03)
[2018-12-06] MEDS: diphenhydrAMINE 50 MG CAP PO PRN (11:30)
--- NOTE | 2018-12-06 11:37 | MHIPNPDOC ---
[facility] Progress Note Progress Note DATE OF SERVICE: 12/06/18 HISTORY: Patient is a 33 -year-old , male, with a history of paranoid schizophrenia, noncompliance medications and follow-up, multiple admits [facility] for psychosis who was brought to Ed by PD after a woman called them for help due to pt following her home in his car b/c she drove a red vehicle and threatening to slash her tires with a screwdriver. Pt was found by police in his car showing off a screwdriver in a threatening manor to passers by. Pt attempted to drive off from police but caught quickly when blocked off by 2 police cars. Pt told police he was following the woman b/c she was threatening and following him. Also stated she drove a red car and it was part of a gov't conspiracy b/c there are too many red, white, and blue cars for [place] which is a poor community. Pt in the ED endorsing gov't conspiracy as stated previously and that they were listening devices in nonspecific places. Pt endorsed paranoia regarding amish and physicians in the ED due to physicians believing he needs antipsychotics when he thinks he needs adderall (this is not new to the pt). Is noncompliant with medications (1mo) and follow-up. Fires physicians that think he needs antipsychotics. VITAL SIGNS: See below. Per 11/01/18 note: "Had court hearing for retention which was passed and ruling was taht pt is mentally ill and is likely to be a threat to the safety of others base on testimony and submitting records. Pt after court antagonizing toward me angry that he will be retained for treatment. Pt came in to my office this am w/o being called to let me know he took his haldol oral last night and this morning and asked if he could take haldol dec today and go home. Advised plan to monitor pt on oral haldol with daily compliance to show tolerance an improvement in symptoms prior to administering haldol dec. Pt just walked out stating he want to go home b/c he missed his family and went back to his room to bed. During court yesterday pt again mentioned the same paranoid delusions/reasons he is here ("followed a woman home in a red car b/c of [employer] and threatened to slash her tires with the screwdriver I had b/c I wanted to talk to her and to find out if there was some type of dealership deal on red, white, and blue cars for people relating to the gov't.") Again, testified in court as previously stated in daily records: "all I need is benadryl, I like that. I don't need antipsychotics, I've been trying to be on natural medicine for the past 10yrs but they keep putting me on antipsychotics [noncompliant on routinely] and the rn post partum keep picking me up for the past 3yrs and locking me up in here for no reason." Referred to the last August 2017 when I had him as a pt after picked up by police under a 9.41 for psychosis when he believed he was Charlee and stated "No, the spirit of Charlee was with me... 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[facility]." Continues to have paranoid delusions everything stated on Thursday: "people messing with me" that he has very poor insight into and continues to believe in gov't conspiracy with [facility] road with blue and white lights, too many red/white/blue cars in [facility] for the area to afford, counting cars passing intersection "72 one day" (stated today he would be "suspicious" if he sees a lot of cars in [place] when he goes home and go to the store and tell everyone it's the cartel and the gov't who works with the cartel."), cars following him in front of him or when turning at the intersection as him, waving screw drivers at red/white/blue cars in threatening manner (doesn't believe that was threatening even though rn post partum reportedly saw him doing it and reported in to be threatening the way he was waving the screw parts driver) to mean "don't mess with me" as they passed by, and following a woman home that was in a red car and threatening to slash here tires b/c she was following him even though she was driving in front of him. Woman called police who found pt on side of road waving screw parts driver at cars passing and attempted to evade police on car concha and was caught when blocked in by copy supervisor cars. When asked about his behavior he states there's nothing wrong with it or dangerous about it b/c "people, the gov't" are messing with him. Endorses ideas of reference as well as states "have you have watched [employer]... every thing is red, white, and blue... it's a gov't conspiracy." Pt does not believe he has diagnosis of schizophrenia on basis he denies AH and continuously advise and attempt to educate him that schizophrenia also includes paranoia, delusions, ideas of reference, thought insertion/broadcasting, etc but refutes all of it by denying he has paranoid de lusions even though it is evident they continue. States benadryl is helpful for anxiety. Insight and judgement remain poor." OBJECTIVE: Pt seen and is more calm and cooperative. States he's really finding inderal beneficial for his anxiety/akithesia and likes it. Warned to only take it as schedule to prevent bp and hr from becoming too low as is originally a bp drug (beta karlene). He is compliant on his medication and tolerating it well. Is now attending groups with ability to maintain attention and not disrupt group which he is liking, "breaks up the day." He appears less preoccupied by paranoid delusions regarding cars, gov't, red/white/blue. Starting to understand why he's here and the dangerousness of his actions in threatening a woman to slash her tires with a screwdriver it appears. Did not become verbally agitated during interview today. States he hopes to go home soon as he misses his girlfriend and son. Denies AVH. Agreeable to haldol dec tomorrow. MENTAL STATUS EXAM: He is dressed hosp scrubs. Cooperative and able to appropriately behave verbally without becoming agitated during interview. Less preoccupied by Paranoid delusions and paraHis psychomotor activity is less labile, verbally aggressive, defensive, antagonistic. Makes fair eye contact. Mood is euthymic and more calm, less reactive. Affect is congruent. Speech rate is reg rate, volume is reg, reg rhythm. Denied any suicidal or homicidal ideas. Continues to have grandiose and paranoid delusions, ideas of reference mostly involving the gov't and red/white/blue although all appear to be improving. His insight and judgment are limited and improving. He is alert, oriented to time, place, and person. DIAGNOSIS: Paranoid Schizophrenia PLAN: continue to encourage me compliance with plan for haldol dec 100mg IM for psychosis and history noncompliance tomorrow haldol 10mg bid haldol 10mg q6hr prn anxiety/agitation vistaril 50mg q6hr prn anxiety benadryl 50mg q6hr prn anxiety Vital Signs Vital Signs Date Time Temp Pulse Resp B/P (MAP) Pulse Ox O2 Delivery O2 Flow Rate FiO2 12/06/18 08:00 87 131/76 12/06/18 06:40 98.1 14 12/03/18 08:36 Room Air 12/01/18 18:00 97 Current Medications Current Medications Acetaminophen (Tylenol Tab) 650 mg Q6HP PRN PO HEADACHE or DISCOMFORT; Start 11/15/18 at 14:30 Al Hydrox/Mg Hydrox/Simethicone (Mylanta) 30 ml Q4HP PRN PO HEARTBURN/INDIGESTION; Start 11/15/18 at 14:30 Aripiprazole (AbiLIFY) 15 mg DAILY PO Last administered on 11/22/18at 10:27; Start 11/22/18 at 09:00; Stop 11/22/18 at 10:25; Status DC Aripiprazole (AbiLIFY) 15 mg QAM PO Last administered on 11/23/18at 08:11; Start 11/23/18 at 09:00; Stop 11/23/18 at 13:13; Status DC Aripiprazole (AbiLIFY) 20 mg QAM PO Last administered on 11/29/18at 08:18; Start 11/24/18 at 09:00; Stop 11/29/18 at 11:48; Status DC Aripiprazole (Abilify Maintena) 400 mg Q30D IM Last administered on 11/25/18at 14:45; Start 11/25/18 at 09:00; Stop 11/29/18 at 11:50; Status DC Benztropine Mesylate (Cogentin) 1 mg BID PO ; Start 12/03/18 at 21:00; Status Cancel Chlorpromazine HCl (Thorazine) 50 mg Q6HP PRN PO AGITATION Last administered on 11/29/18 12:13; Start 11/28/18 at 09:30; Stop 11/30/18 at 10:15; Status DC Clonazepam (KlonoPIN) 0.5 mg BID PRN PO ANXIETY/AGITATION Last administered on 12/05/18at 18:27; Start 11/26/18 at 09:30 Clonazepam (KlonoPIN) 1 mg ACS PO Last administered on 11/19/18 17:15; Start 11/19/18 at 17:30; Stop 11/20/18 at 16:43; Status DC Clonazepam (KlonoPIN) 1 mg BID PO Last administered on 11/25/18at 08:37; Start 11/23/18 at 21:00; Stop 11/25/18 at 08:57; Status DC Clonazepam (KlonoPIN) 1 mg BID PRN PO anxiety Last administered on 11/25/18 20:13; Start 11/25/18 at 09:00; Stop 11/26/18 at 09:21; Status DC Clonazepam (KlonoPIN) 2 mg ACS PO ; Start 11/20/18 at 17:30; Stop 11/21/18 at 08:36; Status DC Clonazepam (KlonoPIN) 2 mg BID PO Last administered on 11/23/18at 08:10; Start 11/21/18 at 09:00; Stop 11/23/18 at 13:05; Status DC Diphenhydramine HCl (Benadryl) 50 mg Q4HP PRN PO ANXIETY/AGITATION Last administered on 12/05/18at 13:32; Start 11/16/18 at 13:15 Diphenhydramine HCl (Benadryl) 50 mg STAT STAT IM Last administered on 11/17/18at 21:56; Start 11/17/18 at 21:22; Stop 11/17/18 at 21:24; Status DC Diphenhydramine HCl (Benadryl) 50 mg STAT STAT IM ; Start 11/17/18 at 21:34; Stop 11/17/18 at 21:35; Status Cancel Haloperidol (Haldol) 5 mg Q6HP PRN PO AGITATION Last administered on 11/27/18 20:22; Start 11/26/18 at 09:30; Stop 11/28/18 at 09:31; Status DC Haloperidol (Haldol) 5 mg STAT STAT IM Last administered on 11/17/18 23:34; Start 11/17/18 at 23:14; Stop 11/17/18 at 23:16; Status DC Haloperidol (Haldol) 10 mg BID PO Last administered on 12/06/18 08:01; Start 11/28/18 at 21:00 Haloperidol (Haldol) 10 mg Q6HP PRN PO ANXIETY/AGITATION Last administered on 12/02/18at 14:56; Start 11/30/18 at 10:15 Haloperidol (Haldol) 10 mg STAT STAT IM Last administered on 11/17/18 21:56; Start 11/17/18 at 21:22; Stop 11/17/18 at 21:24; Status DC Haloperidol (Haldol) 10 mg STAT STAT IM ; Start 11/17/18 at 21:34; Stop 11/17/18 at 21:35; Status Cancel Home Med (Med Rec Complete!) ASDIRECTED XX ; Start 11/15/18 at 12:45; Stop 11/15/18 at 12:49; Status DC Hydroxyzine HCl (Atarax) 50 mg Q4HP PRN PO ANXIETY/AGITATION Last administered on 12/03/18 20:20; Start 11/29/18 at 12:15 Lorazepam (Ativan) 1 mg Q4HP PRN PO ANXIETY/AGITATION Last administered on 11/16/18 22:23; Start 11/16/18 at 22:15; Stop 11/17/18 at 10:18; Status DC Lorazepam (Ativan) 1 mg STAT STAT IM Last administered on 11/17/18 23:34; Start 11/17/18 at 23:14; Stop 11/17/18 at 23:16; Status DC Lorazepam (Ativan) 2 mg Q6HP PRN PO ANXIETY/AGITATION Last administered on 11/16/18 08:18; Start 11/15/18 at 16:45; Stop 11/16/18 at 13:05; Status DC Lorazepam (Ativan) 2 mg STAT STAT IM Last administered on 11/17/18 21:55; Start 11/17/18 at 21:22; Stop 11/17/18 at 21:24; Status DC Lorazepam (Ativan) 2 mg STAT STAT IM ; Start 11/17/18 at 21:34; Stop 11/17/18 at 21:35; Status Cancel Magnesium Hydroxide (Milk Of Magnesia) 30 ml DAILYPRN PRN PO CONSTIPATION; Start 11/15/18 at 14:30 Miscellaneous (Unresolved Clarification Entry) SEE LABEL COMMENTS DAILY XX ; Start 12/02/18 at 09:00; Stop 12/02/18 at 10:28; Status DC Niacin (Niaspan) 500 mg BID PO Last administered on 12/06/18at 08:00; Start 11/22/18 at 14:20 Niacin (Niaspan) 500 mg QHS PO ; Start 11/22/18 at 21:00; Stop 11/22/18 at 21:00; Status DC Nicotine (Nicoderm Cq 7 Mg) 1 patch DAILY TD Last administered on 12/06/18at 08:00; Start 11/16/18 at 09:00 Non-Formulary Medication ( See Comment Field Below ) SEE COMMENTS SECTION 1T@10 XX ; Start 11/18/18 at 10:00; Stop 11/19/18 at 09:59; Status UNV Non-Formulary Medication ( See Comment Field Below ) SEE LABEL COMMENTS DAILY XX ; Start 11/16/18 at 09:00; Stop 12/03/18 at 09:04; Status DC Olanzapine (ZyPREXA ZYDIS) 5 mg Q4HP PRN PO AGITATION; Start 11/15/18 at 14:30; Status Cancel Olanzapine (ZyPREXA ZYDIS) 10 mg Q4HP PRN PO ANXIETY/AGITATION Last administered on 11/29/18at 11:11; Start 11/16/18 at 13:15; Stop 11/29/18 at 12:16; Status DC Paliperidone (Invega) 3 mg QAM PO Last administered on 11/20/18at 08:40; Start 11/16/18 at 13:00; Stop 11/22/18 at 10:13; Status DC Paliperidone (Invega) 3 mg QHS PO Last administered on 11/17/18at 21:12; Start at 21:00; Stop 11/18/18 at 13:08; Status DC Paliperidone (Invega) 6 mg QHS PO ; Start 11/18/18 at 21:00; Stop 11/22/18 at 10 :13; Status DC Propranolol HCl (Inderal) 10 mg TID PO Last administered on 12/06/18at 08:00; Start 12/03/18 at 16:00 Quetiapine Fumarate (SEROquel) 50 mg QHS PO Last administered on 11/28/18at 20:12; Start 11/15/18 at 21:00; Stop 11/29/18 at 12:16; Status DC Allergies Coded Allergies: No Known Allergies (Verified , 03/18/12) DEMARCUS PÉREZ DO Dec 06, 2018 11:37 am
[2018-12-06] MEDS: clonazePAM 0.5 MG TAB PO PRN (17:16)
[2018-12-06 18:11] VITALS: BP 122/76
[2018-12-07 06:32] VITALS: BP 120/69
[2018-12-07] MEDS: NIACIN SR (NIASPAN) 500 MG TAB PO SCH ×2 (08:13→20:48)
[2018-12-07] MEDS: PROPRANOLOL 10 MG TAB PO SCH ×3 (08:13→20:49)
[2018-12-07] MEDS: HALOPERIDOL 10 MG TAB PO SCH ×2 (08:13→20:48)
[2018-12-07] MEDS: NICOTINE 7 MG/24 HR TRANSDERMAL TD SCH (08:14)
[2018-12-07] MEDS: clonazePAM 0.5 MG TAB PO PRN (09:31)
--- NOTE | 2018-12-07 09:37 | MHIPNPDOC ---
[facility] Progress Note Progress Note DATE OF SERVICE: 12/07/18 HISTORY: Patient is a 33 -year-old , male, with a history of paranoid schizophrenia, noncompliance medications and follow-up, multiple admits [facility] for psychosis who was brought to Ed by PD after a woman called them for help due to pt following her home in his car b/c she drove a red vehicle and threatening to slash her tires with a screwdriver. Pt was found by police in his car showing off a screwdriver in a threatening manor to passers by. Pt attempted to drive off from police but caught quickly when blocked off by 2 police cars. Pt told police he was following the woman b/c she was threatening and following him. Also stated she drove a red car and it was part of a gov't conspiracy b/c there are too many red, white, and blue cars for [place] which is a poor community. Pt in the ED endorsing gov't conspiracy as stated previously and that they were listening devices in nonspecific places. Pt endorsed paranoia regarding anabaptist and physicians in the ED due to physicians believing he needs antipsychotics when he thinks he needs adderall (this is not new to the pt). Is noncompliant with medications (1mo) and follow-up. Fires physicians that think he needs antipsychotics. VITAL SIGNS: See below. Per 11/01/18 note: "Had court hearing for retention which was passed and ruling was taht pt is mentally ill and is likely to be a threat to the safety of others base on testimony and submitting records. Pt after court antagonizing toward me angry that he will be retained for treatment. Pt came in to my office this am w/o being called to let me know he took his haldol oral last night and this morning and asked if he could take haldol dec today and go home. Advised plan to monitor pt on oral haldol with daily compliance to show tolerance an improvement in symptoms prior to administering haldol dec. Pt just walked out stating he want to go home b/c he missed his family and went back to his room to bed. During court yesterday pt again mentioned the same paranoid delusions/reasons he is here ("followed a woman home in a red car b/c of [employer] and threatened to slash her tires with the screwdriver I had b/c I wanted to talk to her and to find out if there was some type of dealership deal on red, white, and blue cars for people relating to the gov't.") Again, testified in court as previously stated in daily records: "all I need is benadryl, I like that. I don't need antipsychotics, I've been trying to be on natural medicine for the past 10yrs but they keep putting me on antipsychotics [noncompliant on routinely] and the deaf and hard of hearing teacher keep picking me up for the past 3yrs and locking me up in here for no reason." Referred to the last August 2017 when I had him as a pt after picked up by police under a 9.41 for psychosis when he believed he was Charlee and stated "No, the spirit of Charlee was with me... 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[facility]." Continues to have paranoid delusions everything stated on Thursday: "people messing with me" that he has very poor insight into and continues to believe in gov't conspiracy [facility] road with blue and white lights, too many red/white/blue cars in [facility] for the area to afford, counting cars passing intersection "72 one day" (stated today he would be "suspicious" if he sees a lot of cars in [place] when he goes home and go to the store and tell everyone it's the cartel and the gov't who works with the cartel."), cars following him in front of him or when turning at the intersection as him, waving screw drivers at red/white/blue cars in threatening manner (doesn't believe that was threatening even though deaf and hard of hearing teacher reportedly saw him doing it and reported in to be threatening the way he was waving the screw explosives truck driver) to mean "don't mess with me" as they passed by, and following a woman home that was in a red car and threatening to slash here tires b/c she was following him even though she was driving in front of him. Woman called police who found pt on side of road waving screw explosives truck driver at cars passing and attempted to evade police on car concha and was caught when blocked in by copier technician cars. When asked about his behavior he states there's nothing wrong with it or dangerous about it b/c "people, the gov't" are messing with him. Endorses ideas of reference as well as states "have you have watched [employer]... every thing is red, white, and blue... it's a gov't conspiracy." Pt does not believe he has diagnosis of schizophrenia on basis he denies AH and continuously advise and attempt to educate him that schizophrenia also includes paranoia, delusions, ideas of reference, thought insertion/broadcasting, etc but refutes all of it by denying he has paranoid del usions even though it is evident they continue. States benadryl is helpful for anxiety. Insight and judgement remain poor." OBJECTIVE: Pt seen and is more calm and cooperative but focused on when he can be discharged. States he's really finding inderal beneficial for his anxiety/akathisia and likes it. He is compliant on his medication and tolerating it well. Is now attending groups but states it's not enough to keep him occupied focusing on d/c. He appears less preoccupied by paranoid delusions regarding cars, gov't, red/white/blue. Starting to understand why he's here and the dangerousness of his actions in threatening a woman to slash her tires with a screwdriver it appears. Did not become verbally agitated during interview today although anxious mostly b/c wants d/c and slightly irritable he isn't being d/c today. States he hopes to go home soon as he misses his girlfriend and son. Denies AVH. Agreeable to haldol dec today. MENTAL STATUS EXAM: He is dressed hosp scrubs. Cooperative and able to appropriately behave verbally without becoming agitated during interview. Less preoccupied by Paranoid delusions. His psychomotor activity is less labile, verbally aggressive, defensive, antagonistic. Makes fair eye contact. Focused on d/c home. Mood is euthymic and more calm, less reactive. Affect is congruent. Speech rate is reg rate, volume is reg, reg rhythm. Denied any suicidal or homicidal ideas. Continues to have grandiose and paranoid delusions, ideas of reference mostly involving the gov't and red/white/blue although all appear to be improving. His insight and judgment are limited and improving. He is alert, oriented to time, place, and person. DIAGNOSIS: Paranoid Schizophrenia PLAN: continue to encourage me compliance with plan for haldol dec 100mg IM for psychosis and history noncompliance today haldol 10mg bid haldol 10mg q6hr prn anxiety/agitation vistaril 50mg q6hr prn anxiety benadryl 50mg q6hr prn anxiety TIME SPENT: 30 minutes. Vital Signs Vital Signs Date Time Temp Pulse Resp B/P (MAP) Pulse Ox O2 Delivery O2 Flow Rate FiO2 12/07/18 08:58 Room Air 12/07/18 08:13 67 120/69 12/07/18 06:32 98.3 14 12/01/18 18:00 97 Current Medications Current Medications Acetaminophen (Tylenol Tab) 650 mg Q6HP PRN PO HEADACHE or DISCOMFORT; Start 11/15/18 at 14:30 Al Hydrox/Mg Hydrox/Simethicone (Mylanta) 30 ml Q4HP PRN PO HEARTBURN/INDIGESTION; Start 11/15/18 at 14:30 Aripiprazole (AbiLIFY) 15 mg DAILY PO Last administered on 11/22/18at 10:27; Start 11/22/18 at 09:00; Stop 11/22/18 at 10:25; Status DC Aripiprazole (AbiLIFY) 15 mg QAM PO Last administered on 11/23/18at 08:11; Start 11/23/18 at 09:00; Stop 11/23/18 at 13:13; Status DC Aripiprazole (AbiLIFY) 20 mg QAM PO Last administered on 11/29/18at 08:18; Start 11/24/18 at 09:00; Stop 11/29/18 at 11:48; Status DC Aripiprazole (Abilify Maintena) 400 mg Q30D IM Last administered on 11/25/18at 14:45; Start 11/25/18 at 09:00; Stop 11/29/18 at 11:50; Status DC Benztropine Mesylate (Cogentin) 1 mg BID PO ; Start 12/03/18 at 21:00; Status Cancel Chlorpromazine HCl (Thorazine) 50 mg Q6HP PRN PO AGITATION Last administered on 11/29/18 12:13; Start 11/28/18 at 09:30; Stop 11/30/18 at 10:15; Status DC Clonazepam (KlonoPIN) 0.5 mg BID PRN PO ANXIETY/AGITATION Last administered on 12/07/18 09:31; Start 11/26/18 at 09:30 Clonazepam (KlonoPIN) 1 mg ACS PO Last administered on 11/19/18at 17:15; Start 11/19/18 at 17:30; Stop 11/20/18 at 16:43; Status DC Clonazepam (KlonoPIN) 1 mg BID PO Last administered on 11/25/18at 08:37; Start 11/23/18 at 21:00; Stop 11/25/18 at 08:57; Status DC Clonazepam (KlonoPIN) 1 mg BID PRN PO anxiety Last administered on 11/25/18at 20:13; Start 11/25/18 at 09:00; Stop 11/26/18 at 09:21; Status DC Clonazepam (KlonoPIN) 2 mg ACS PO ; Start 11/20/18 at 17:30; Stop 11/21/18 at 08:36; Status DC Clonazepam (KlonoPIN) 2 mg BID PO Last administered on 11/23/18at 08:10; Start 11/21/18 at 09:00; Stop 11/23/18 at 13:05; Status DC Diphenhydramine HCl (Benadryl) 50 mg Q4HP PRN PO ANXIETY/AGITATION Last administered on 12/06/18at 11:30; Start 11/16/18 at 13:15 Diphenhydramine HCl (Benadryl) 50 mg STAT STAT IM Last administered on 11/17/18at 21:56; Start 11/17/18 at 21:22; Stop 11/17/18 at 21:24; Status DC Diphenhydramine HCl (Benadryl) 50 mg STAT STAT IM ; Start 11/17/18 at 21:34; Stop 11/17/18 at 21:35; Status Cancel Haloperidol (Haldol) 5 mg Q6HP PRN PO AGITATION Last administered on 11/27/18 20:22; Start 11/26/18 at 09:30; Stop 11/28/18 at 09:31; Status DC Haloperidol (Haldol) 5 mg STAT STAT IM Last administered on 11/17/18 23:34; Start 11/17/18 at 23:14; Stop 11/17/18 at 23:16; Status DC Haloperidol (Haldol) 10 mg BID PO Last administered on 12/07/18 08:13; Start 11/28/18 at 21:00 Haloperidol (Haldol) 10 mg Q6HP PRN PO ANXIETY/AGITATION Last administered on 12/02/18at 14:56; Start 11/30/18 at 10:15 Haloperidol (Haldol) 10 mg STAT STAT IM Last administered on 11/17/18 21:56; Start 11/17/18 at 21:22; Stop 11/17/18 at 21:24; Status DC Haloperidol (Haldol) 10 mg STAT STAT IM ; Start 11/17/18 at 21:34; Stop 11/17/18 at 21:35; Status Cancel Home Med (Med Rec Complete!) ASDIRECTED XX ; Start 11/15/18 at 12:45; Stop 11/15/18 at 12:49; Status DC Hydroxyzine HCl (Atarax) 50 mg Q4HP PRN PO ANXIETY/AGITATION Last administered on 12/03/18at 20:20; Start 11/29/18 at 12:15 Lorazepam (Ativan) 1 mg Q4HP PRN PO ANXIETY/AGITATION Last administered on 11/16/18 22:23; Start 11/16/18 at 22:15; Stop 11/17/18 at 10:18; Status DC Lorazepam (Ativan) 1 mg STAT STAT IM Last administered on 11/17/18 23:34; Start 11/17/18 at 23:14; Stop 11/17/18 at 23:16; Status DC Lorazepam (Ativan) 2 mg Q6HP PRN PO ANXIETY/AGITATION Last administered on 11/16/18 08:18; Start 11/15/18 at 16:45; Stop 11/16/18 at 13:05; Status DC Lorazepam (Ativan) 2 mg STAT STAT IM Last administered on 11/17/18 21:55; Start 11/17/18 at 21:22; Stop 11/17/18 at 21:24; Status DC Lorazepam (Ativan) 2 mg STAT STAT IM ; Start 11/17/18 at 21:34; Stop 11/17/18 at 21:35; Status Cancel Magnesium Hydroxide (Milk Of Magnesia) 30 ml DAILYPRN PRN PO CONSTIPATION; Start 11/15/18 at 14:30 Miscellaneous (Unresolved Clarification Entry) SEE LABEL COMMENTS DAILY XX ; Start 12/02/18 at 09:00; Stop 12/02/18 at 10:28; Status DC Niacin (Niaspan) 500 mg BID PO Last administered on 12/07/18at 08:13; Start 11/22/18 at 14:20 Niacin (Niaspan) 500 mg QHS PO ; Start 11/22/18 at 21:00; Stop 11/22/18 at 21:00; Status DC Nicotine (Nicoderm Cq 7 Mg) 1 patch DAILY TD Last administered on 12/07/18at 08:14; Start 11/16/18 at 09:00 Non-Formulary Medication ( See Comment Field Below ) SEE COMMENTS SECTION 1T@10 XX ; Start 11/18/18 at 10:00; Stop 11/19/18 at 09:59; Status UNV Non-Formulary Medication ( See Comment Field Below ) SEE LABEL COMMENTS DAILY XX ; Start 11/16/18 at 09:00; Stop 12/03/18 at 09:04; Status DC Olanzapine (ZyPREXA ZYDIS) 5 mg Q4HP PRN PO AGITATION; Start 11/15/18 at 14:30; Status Cancel Olanzapine (ZyPREXA ZYDIS) 10 mg Q4HP PRN PO ANXIETY/AGITATION Last administered on 11/29/18at 11:11; Start 11/16/18 at 13:15; Stop 11/29/18 at 12:16; Status DC Paliperidone (Invega) 3 mg QAM PO Last administered on 11/20/18at 08:40; Start 11/16/18 at 13:00; Stop 11/22/18 at 10:13; Status DC Paliperidone (Invega) 3 mg QHS PO Last administered on 11/17/18at 21:12; Start 11/16/18 at 21:00; Stop 11/18/18 at 13:08; Status DC Paliperidone (Invega) 6 mg QHS PO ; Start 11/18/18 at 21:00; Stop 11/22/18 at 10:13; Status DC Propranolol HCl (Inderal) 10 mg TID PO Last administered on 12/07/18at 08:13; Start 12/03/18 at 16:00 Quetiapine Fumarate (SEROquel) 50 mg QHS PO Last administered on 11/28/18at 20:12; Start 11/15/18 at 21:00; Stop 11/29/18 at 12:16; Status DC Allergies Coded Allergies: No Known Allergies (Verified , 03/18/12) DEMARCUS PÉREZ DO Dec 07, 2018 9:37 am
[2018-12-07] MEDS ORDERED: HALOPERIDOL DECANOATE 100 MG/ML VIAL (J1631) IM ONE (09:45)
[2018-12-07] MEDS: diphenhydrAMINE 50 MG CAP PO PRN (15:51)
[2018-12-07 18:00] VITALS: BP 136/82
[2018-12-08 06:14] VITALS: BP 118/61
[2018-12-08] MEDS: HALOPERIDOL 10 MG TAB PO SCH (08:04)
[2018-12-08] MEDS: PROPRANOLOL 10 MG TAB PO SCH ×3 (08:04→23:00)
[2018-12-08] MEDS: NICOTINE 7 MG/24 HR TRANSDERMAL TD SCH (08:05)
[2018-12-08] MEDS: NIACIN SR (NIASPAN) 500 MG TAB PO SCH ×2 (08:05→23:00)
[2018-12-08] MEDS: HALOPERIDOL 5 MG TAB PO SCH ×2 (09:00→23:00)
--- NOTE | 2018-12-08 10:30 | MHIPNPDOC ---
[facility] Progress Note Progress Note DATE OF SERVICE: 12/08/18 HISTORY:Patient is a 33 -year-old , male, with a history of paranoid schizophrenia, noncompliance medications and follow-up, multiple admits [facility] for psychosis who was brought to Ed by PD after a woman called them for help due to pt following her home in his car b/c she drove a red vehicle and threatening to slash her tires with a screwdriver. Pt was found by police in his car showing off a screwdriver in a threatening manor to passers by. Pt attempted to drive off from police but caught quickly when blocked off by 2 police cars. Pt told police he was following the woman b/c she was threatening and following him. Also stated she drove a red car and it was part of a gov't conspiracy b/c there are too many red, white, and blue cars for [place] which is a poor community. Pt in the ED endorsing gov't conspiracy as stated previously and that they were listening devices in nonspecific places. Pt endorsed paranoia regarding confucianism and physicians in the ED due to physicians believing he needs antipsychotics when he thinks he needs adderall (this is not new to the pt). Is noncompliant with medications (1mo) and follow-up. Fires physicians that think he needs antipsychotics. VITAL SIGNS: See below. Per 11/01/18 note: "Had court hearing for retention which was passed and ruling was taht pt is mentally ill and is likely to be a threat to the safety of others base on testimony and submitting records. Pt after court antagonizing toward me angry that he will be retained for treatment. Pt came in to my office this am w/o being called to let me know he took his haldol oral last night and this morning and asked if he could take haldol dec today and go home. Advised plan to monitor pt on oral haldol with daily compliance to show tolerance an improvement in symptoms prior to administering haldol dec. Pt just walked out stating he want to go home b/c he missed his family and went back to his room to bed. During court yesterday pt again mentioned the same paranoid delusions/reasons he is here ("followed a woman home in a red car b/c of [place] [employer] and threatened to slash her tires with the screwdriver I had b/c I wanted to talk to her and to find out if there was some type of dealership deal on red, white, and blue cars for people relating to the gov't.") Again, testified in court as previously stated in daily records: "all I need is benadryl, I like that. I don't need antipsychotics, I've been trying to be on natural medicine for the past 10yrs but they keep putting me on antipsychotics [noncompliant on routinely] and the roofing contractor keep picking me up for the past 3yrs and locking me up in here for no reason." Referred to the last August 2017 when I had him as a pt after picked up by police under a 9.41 for psychosis when he believed he was Charlee and stated "No, the spirit of Charlee was with me... 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[facility]." Continues to have paranoid delusions everything stated on Thursday: "people messing with me" that he has very poor insight into and continues to believe in gov't conspiracy with [facility] off sides of road with blue and white lights, too many red/white/blue cars in [facility] for the area to afford, counting cars passing intersection "72 one day" (stated today he would be "suspicious" if he sees a lot of cars in [place] when he goes home and go to the store and tell everyone it's the cartel and the gov't who works with the cartel."), cars following him in front of him or when turning at the intersection as him, waving screw drivers at red/white/blue cars in threatening manner (doesn't believe that was threatening even though roofing contractor reportedly saw him doing it and reported in to be threatening the way he was waving the screw ross carrier driver) to mean "don't mess with me" as they passed by, and following a woman home that was in a red car and threatening to slash here tires b/c she was following him even though she was driving in front of him. Woman called police who found pt on side of road waving screw ross carrier driver at cars passing and attempted to evade police on car concha and was caught when blocked in by copyright manager cars. When asked about his behavior he states there's nothing wrong with it or dangerous about it b/c "people, the gov't" are messing with him. Endorses ideas of reference as well as states "have you have watched [employer] TV... every thing is red, white, and blue... it's a gov't conspiracy." Pt does not believe he has diagnosis of schizophrenia on basis he denies AH and continuously advise and attempt to educate him that schizophrenia also includes paranoia, delusions, ideas of reference, thought insertion/broadcasting, etc but refutes all of it by denying he has paranoid delusions even though it is evident they continue. States benadryl is helpful for anxiety. Insight and judgement remain poor." OBJECTIVE: Pt seen and is more calm and cooperative and states he feels overall relaxed and is able to stop himself from becoming overt absorbed in thoughts about the gov't and cars and able to state he wasn't thinking right at the time. States if he become concerned about cars, gov't, suspicious police he will go to police station to report it. States he realizes his behavior by threatening a woman with a screwdriver was wrong and states he won't do that again and he doesn't want to threaten people. Realizes he was wrong in trying to evade police when brought in as has 3 traffic tickets now he has to pay for. States he's really f inding inderal beneficial for his anxiety/akathisia and likes it. He is compliant on his medication and tolerating it well. Is attending groups. He appears less preoccupied by paranoid delusions regarding cars, gov't, red/white/blue. Did not become verbally agitated during interview. States he hopes to go home soon as he misses his girlfriend and son. Denies AVH. Tolerated haldol dec given yesterday and tolerating it well. MENTAL STATUS EXAM: He is dressed hosp scrubs. Cooperative and able to appropriately behave verbally without becoming agitated during interview. He is calm. Less preoccupied by Paranoid delusions. His psychomotor activity is less labile, verbally aggressive, defensive, antagonistic. Makes good eye contact. Focused on d/c home. Mood is euthymic and more calm, less reactive. Affect is congruent. Speech rate is reg rate, volume is reg, reg rhythm. Denied any suicidal or homicidal ideas. Improved grandiose and paranoid delusions, ideas of reference mostly involving the gov't and red/white/blue. His insight and judgment are improving. He is alert, oriented to time, place, and person. DIAGNOSIS: Paranoid Schizophrenia PLAN: decrease oral haldol as dec given haldol 5mg bid haldol 10mg q6hr prn anxiety/agitation vistaril 50mg q6hr prn anxiety benadryl 50mg q6hr prn anxiety haldol dec 100mg IM 12/07/18 TIME SPENT: 30 minutes. Vital Signs Vital Signs Date Time Temp Pulse Resp B/P (MAP) Pulse Ox O2 Delivery O2 Flow Rate FiO2 12/08/18 09:07 Room Air 12/08/18 08:04 67 118/61 12/08/18 06:14 97.8 12 Current Medications Current Medications Acetaminophen (Tylenol Tab) 650 mg Q6HP PRN PO HEADACHE or DISCOMFORT; Start 11/15/18 at 14:30 Al Hydrox/Mg Hydrox/Simethicone (Mylanta) 30 ml Q4HP PRN PO HEARTBURN/INDIGESTION; Start 11/15/18 at 14:30 Aripiprazole (AbiLIFY) 15 mg DAILY PO Last administered on 11/22/18at 10:27; Start 11/22/18 at 09:00; Stop 11/22/18 at 10:25; Status DC Aripiprazole (AbiLIFY) 15 mg QAM PO Last administered on 11/23/18at 08:11; Start 11/23/18 at 09:00; Stop 11/23/18 at 13:13; Status DC Aripiprazole (AbiLIFY) 20 mg QAM PO Last administered on 11/29/18at 08:18; Start 11/24/18 at 09:00; Stop 11/29/18 at 11:48; Status DC Aripiprazole (Abilify Maintena) 400 mg Q30D IM Last administered on 11/25/18at 14:45; Start 11/25/18 at 09:00; Stop 11/29/18 at 11:50; Status DC Benztropine Mesylate (Cogentin) 1 mg BID PO ; Start 12/03/18 at 21:00; Status Cancel Chlorpromazine HCl (Thorazine) 50 mg Q6HP PRN PO AGITATION Last administered on 11/29/18 12:13; Start 11/28/18 at 09:30; Stop 11/30/18 at 10:15; Status DC Clonazepam (KlonoPIN) 0.5 mg BID PRN PO ANXIETY/AGITATION Last administered on 12/07/18at 09:31; Start 11/26/18 at 09:30 Clonazepam (KlonoPIN) 1 mg ACS PO Last administered on 11/19/18 17:15; Start 11/19/18 at 17:30; Stop 11/20/18 at 16:43; Status DC Clonazepam (KlonoPIN) 1 mg BID PO Last administered on 11/25/18at 08:37; Start 11/23/18 at 21:00; Stop 11/25/18 at 08:57; Status DC Clonazepam (KlonoPIN) 1 mg BID PRN PO anxiety Last administered on 11/25/18at 20:13; Start 11/25/18 at 09:00; Stop 11/26/18 at 09:21; Status DC Clonazepam (KlonoPIN) 2 mg ACS PO ; Start 11/20/18 at 17:30; Stop 11/21/18 at 08:36; Status DC Clonazepam (KlonoPIN) 2 mg BID PO Last administered on 11/23/18 08:10; Start 11/21/18 at 09:00; Stop 11/23/18 at 13:05; Status DC Diphenhydramine HCl (Benadryl) 50 mg Q4HP PRN PO ANXIETY/AGITATION Last administered on 12/07/18 15:51; Start 11/16/18 at 13:15 Diphenhydramine HCl (Benadryl) 50 mg STAT STAT IM Last administered on 11/17/18at 21:56; Start 11/17/18 at 21:22; Stop 11/17/18 at 21:24; Status DC Diphenhydramine HCl (Benadryl) 50 mg STAT STAT IM ; Start 11/17/18 at 21:34; Stop 11/17/18 at 21:35; Status Cancel Haloperidol (Haldol) 5 mg Q6HP PRN PO AGITATION Last administered on 11/27/18 20:22; Start 11/26/18 at 09:30; Stop 11/28/18 at 09:31; Status DC Haloperidol (Haldol) 5 mg STAT STAT IM Last administered on 11/17/18 23:34; Start 11/17/18 at 23:14; Stop 11/17/18 at 23:16; Status DC Haloperidol (Haldol) 10 mg BID PO Last administered on 12/08/18 08:04; Start 11/28/18 at 21:00 Haloperidol (Haldol) 10 mg Q6HP PRN PO ANXIETY/AGITATION Last administered on 12/02/18 14:56; Start 11/30/18 at 10:15 Haloperidol (Haldol) 10 mg STAT STAT IM Last administered on 11/17/18 21:56; Start 11/17/18 at 21:22; Stop 11/17/18 at 21:24; Status DC Haloperidol (Haldol) 10 mg STAT STAT IM ; Start 11/17/18 at 21:34; Stop 11/17/18 at 21:35; Status Cancel Home Med (Med Rec Complete!) ASDIRECTED XX ; Start 11/15/18 at 12:45; Stop 11/15/18 at 12:49; Status DC Hydroxyzine HCl (Atarax) 50 mg Q4HP PRN PO ANXIETY/AGITATION Last administered on 12/03/18 20:20; Start 11/29/18 at 12:15 Lorazepam (Ativan) 1 mg Q4HP PRN PO ANXIETY/AGITATION Last administered on 11/16/18 22:23; Start 11/16/18 at 22:15; Stop 11/17/18 at 10:18; Status DC Lorazepam (Ativan) 1 mg STAT STAT IM Last administered on 11/17/18 23:34; Start 11/17/18 at 23:14; Stop 11/17/18 at 23:16; Status DC Lorazepam (Ativan) 2 mg Q6HP PRN PO ANXIETY/AGITATION Last administered on 11/16/18 08:18; Start 11/15/18 at 16:45; Stop 11/16/18 at 13:05; Status DC Lorazepam (Ativan) 2 mg STAT STAT IM Last administered on 4/3/19at 21:55; Start 11/17/18 at 21:22; Stop 11/17/18 at 21:24; Status DC Lorazepam (Ativan) 2 mg STAT STAT IM ; Start 11/17/18 at 21:34; Stop 11/17/18 at 21:35; Status Cancel Magnesium Hydroxide (Milk Of Magnesia) 30 ml DAILYPRN PRN PO CONSTIPATION; Start 11/15/18 at 14:30 Miscellaneous (Unresolved Clarification Entry) SEE LABEL COMMENTS DAILY XX ; Start 12/02/18 at 09:00; Stop 12/02/18 at 10:28; Status DC Niacin (Niaspan) 500 mg BID PO Last administered on 12/08/18at 08:05; Start 11/22/18 at 14:20 Niacin (Niaspan) 500 mg QHS PO ; Start 11/22/18 at 21:00; Stop 11/22/18 at 21:00; Status DC Nicotine (Nicoderm Cq 7 Mg) 1 patch DAILY TD Last administered on 12/08/18at 08:05; Start 11/16/18 at 09:00 Non-Formulary Medication ( See Comment Field Below ) SEE COMMENTS SECTION 1T@10 XX ; Start 11/18/18 at 10:00; Stop 11/19/18 at 09:59; Status UNV Non-Formulary Medication ( See Comment Field Below ) SEE LABEL COMMENTS DAILY XX ; Start 11/16/18 at 09:00; Stop 12/03/18 at 09:04; Status DC Olanzapine (ZyPREXA ZYDIS) 5 mg Q4HP PRN PO AGITATION; Start 11/15/18 at 14:30; Status Cancel Olanzapine (ZyPREXA ZYDIS) 10 mg Q4HP PRN PO ANXIETY/AGITATION Last administered on 11/29/18at 11:11; Start 11/16/18 at 13:15; Stop 11/29/18 at 12:16; Status DC Paliperidone (Invega) 3 mg QAM PO Last administered on 11/20/18at 08:40; Start 11/16/18 at 13:00; Stop 11/22/18 at 10:13; Status DC Paliperidone (Invega) 3 mg QHS PO Last administered on 11/17/18at 21:12; Start 11/16/18 at 21:00; Stop 11/18/18 at 13:08; Status DC Paliperidone (Invega) 6 mg QHS PO ; Start 11/18/18 at 21:00; Stop 11/22/18 at 1 0:13; Status DC Propranolol HCl (Inderal) 10 mg TID PO Last administered on 12/08/18at 08:04; Start 12/03/18 at 16:00 Quetiapine Fumarate (SEROquel) 50 mg QHS PO Last administered on 11/28/18at 20:12; Start 11/15/18 at 21:00; Stop 11/29/18 at 12:16; Status DC Allergies Coded Allergies: No Known Allergies (Verified , 03/18/12) DEMARCUS PÉREZ DO Dec 08, 2018 9:15 am
[2018-12-08] MEDS: clonazePAM 0.5 MG TAB PO PRN (11:22)
[2018-12-08 18:00] VITALS: BP 126/79
[2018-12-08] MEDS: hydrOXYzine 50 MG TAB PO PRN (22:59)
[2018-12-09 07:14] VITALS: BP 116/59
[2018-12-09 08:18] VITALS: BP 116/59
[2018-12-09] MEDS: NIACIN SR (NIASPAN) 500 MG TAB PO SCH (08:18)
[2018-12-09] MEDS: HALOPERIDOL 5 MG TAB PO SCH (08:18)
[2018-12-09] MEDS: PROPRANOLOL 10 MG TAB PO SCH (08:18)
[2018-12-09] MEDS: NICOTINE 7 MG/24 HR TRANSDERMAL TD SCH (08:19)
[2018-12-09] MEDS ORDERED: NIAC500T64 PO (09:19)
[2018-12-09] MEDS ORDERED: HALO5TA PO (09:19)
[2018-12-09] MEDS ORDERED: PROP10TA56 PO (09:19)
[2018-12-09] MEDS ORDERED: HALD100I2 IM (09:19)
[2018-12-09] MEDS ORDERED: DIPH50CA PO (09:19)
--- NOTE | 2018-12-09 09:21 | MHDSPDOC ---
[facility] Discharge Summary Discharge Summary DATE OF ADMISSION: Nov 15, 2018 at 2:37 pm DATE OF DISCHARGE: December 09, 2018 DISCHARGE DIAGNOSES: Paranoid Schizophrenia REASON FOR ADMISSION: Patient is a 33 -year-old , male, with a history of paranoid schizophrenia, noncompliance medications and follow-up, multiple admits [facility] for psychosis who was brought to Ed by PD after a woman called them for help due to pt following her home in his car b/c she drove a red vehicle and threatening to slash her tires with a screwdriver. Pt was found by police in his car showing off a screwdriver in a threatening manor to passers by. Pt attempted to drive off from police but caught quickly when blocked off by 2 police cars. Pt told police he was following the woman b/c she was threatening and following him. Also stated she drove a red car and it was part of a gov't conspiracy b/c there are too many red, white, and blue cars for [place] which is a poor community. Pt in the ED endorsing gov't conspiracy as stated previously and that they were listening devices in nonspecific places. Pt endorsed paranoi a regarding methodist and physicians in the ED due to physicians believing he needs antipsychotics when he thinks he needs adderall (this is not new to the pt). Is noncompliant with medications (1mo) and follow-up. Fires physicians that think he needs antipsychotics. CONSULTANTS INVOLVED: none TREATMENT AND PROGRESS ON THE UNIT : Pt was admitted to [facility], seen for psychiatr ic assessment and started on his invega 3mg bid that was d/c by DR. Zamarripa and he was started on abilify 20mg daily then received abilify mantenna that was not affective for the pt's psychosis as it continued so I d/c the oral abilify and started him on haldol increased to 10mg daily that appeared to be affective so he was given haldol dec 100mg im that he tolerated well, found beneficial, and his psychosis/delusions greatly improved. During his admission he was provided zyprexa zydis 10mg q6hr prn anxiety/agitation that was later d/c as pt preferred haldol 10mg q6hr prn anxiety/agitation, niacin er 500mg bid, inderal 10mg tid, v istaril 50mg q6hr prn anxiety d/c on d/c, klonopin which pt was titrated off prior d/c, and benadryl 50mg q6hr prn anxiety. Pt found his final medications beneficial and tolerated them well. He attended groups daily toward the end of his stay when he was no longer disruptive in them. His symptoms improved with treatment. On day of discharge he denied depression, anxiety, insomnia, SI/HI, hallucinations, delusions. He was discharged home after family meeting with his father with follow-up at [facility]. He felt safe for discharge. Pt was taken to court for retention and the wad printing machine operator declared pt be retained in the hospital for continual treatment and monitoring on 12/01/18. DISCHARGE ASSESSMENT:Pt seen and is more calm and cooperative and states he fee ls overall relaxed and is looking forward to going home with being with his girlfriend and son who he has greatly missed. He states he is able to stop himself from becoming overt absorbed in thoughts about the gov't and cars and able to state he wasn't thinking right at the time. States if he become concerned about cars, gov't, suspicious police he will go to police station to report it. States he realizes his behavior by threatening a woman with a screwdriver was wrong and states he won't do that again and he doesn't want to threaten people. Realizes he was wrong in trying to evade police when brought in as has 3 traffic tickets now he has to pay for. States he's really finding inderal beneficial for his anxiety/akathisia and likes it. He is compliant on his medication and tolerating it well. Is attending groups. He appears no longer preoccupied by paranoid delusions regarding cars, gov't, red/white/blue. His behavior is appropriate. Denies AVH. Denies depression, anxiety, insomnia, SI/HI, hallucinations, delusions. Feels safe to be discharged home. MENTAL STATUS EXAMINATION ON DISCHARGE: He is dressed hosp scrubs. Cooperative and able to appropriately behave verbally without becoming agitated during interview. He is calm. No longer preoccupied by Paranoid delusions. His psychomotor activity is no longer labile, verbally aggressive, defensive, antagonistic. Makes good eye contact. Focused on d/c home. Mood is euthymic and more calm, cooperative, appropriate. Affect is congruent. Speech rate is reg rate, volume is reg, reg rhythm. Denied any suicidal or homicidal ideas. Denies grandiose and paranoid delusions, ideas of reference. His insight and judgment are fair to good. He is alert, oriented to time, place, and person. MEDICATIONS ON DISCHARGE: haldol 5mg bid benadryl 50mg q6hr prn anxiety haldol dec 100mg IM qmonthly inderal 10mg tid niacin er 500mg bid PLAN/FOLLOWUP ARRANGEMENTS: D/c home with follow-up at [facility]. The amount of time spent in the coordination of care for this patient was approximately 30 minutes. Vital Signs/I&Os Vital Signs Date Time Temp Pulse Resp B/P (MAP) Pulse Ox O2 Delivery O2 Flow Rate FiO2 12/09/18 08:18 69 116/59 12/09/18 07:14 98.6 16 12/08/18 09:07 Room Air Medications Scheduled [[place]] , 1,064 MG IM [id number] for PSYCHOSIS, (Reported) Allergies Coded Allergies: No Known Allergies (Verified , 03/18/12) DEMARCUS PÉREZ DO Dec 09, 2018 9:21 am
== END 2018-12-09 12:05 | disposition home or self-care (01) | DRG 750 ==
LOC: M ED 15:14 → M ED INP 11-15 14:37 → M PSY 11-15 16:00
PROVIDERS: ADMIT Psychiatry & Neurology Psychiatry; ATTEND Psychiatry & Neurology Psychiatry
DX: F20.0 Paranoid schizophrenia (principal); Z91.14 Patient's other noncompliance with medication regimen; E78.5 Hyperlipidemia, unspecified; F41.9 Anxiety disorder, unspecified; F17.220 Nicotine dependence, chewing tobacco, uncomplicated; D72.829 Elevated white blood cell count, unspecified

== ENCOUNTER 2019-03-05 18:22 | Inpatient (IN) | payer OTHER ==
[~2019-03-05] VITALS: Ht 180.3 cm; Wt 84.8 kg
[~2019-03-05 18:22] MED LIST changes: +ARISTADA IM; +DIPH50CA PO; +HALD100I2 IM; +HALO5TA PO; +NIAC500T64 PO; +PROP10TA56 PO; -TRAZ-160 PO; +TRAZ-252 PO
[2019-03-05 19:54] LABS: HEMATOCRIT 45.8 % (42.0-52.0); MEAN CORPUSCULAR HEMOGLOBIN 29.3 pg (27.0-33.0); MEAN CORPUSCULAR HGB CONC 34.9 g/dl (32.0-36.5); MEAN CORPUSCULAR VOLUME 83.9 fl (80.0-96.0); PLATELET COUNT, AUTOMATED 220 10^3/uL (150-450); RED BLOOD COUNT 5.46 10^6/uL (4.30-6.10); WHITE BLOOD COUNT 11.1 10^3/uL (4.0-10.0)
[2019-03-05 20:14] LABS: AMPHETAMINES LEVEL URINE NEGATIVE (NEGATIVE); BARBITURATES URINE NEGATIVE (NEGATIVE); BENZODIAZEPINES URINE NEGATIVE (NEGATIVE); CANNABINOIDS URINE POSITIVE (NEGATIVE); COCAINE METABOLITE URINE NEGATIVE (NEGATIVE); METHADONE URINE NEGATIVE (NEGATIVE); OPIATES URINE NEGATIVE (NEGATIVE); PHENCYCLIDINE URINE NEGATIVE (NEGATIVE)
[2019-03-05 20:53] LABS: ACETAMINOPHEN LEVEL < 2.0 UG/ML (10.0-30.0); ALBUMIN 4.5 GM/DL (3.2-5.2); ALT/SGPT 22 U/L (12-78); BILIRUBIN,DIRECT 0.1 MG/DL (0.0-0.2); BILIRUBIN,TOTAL 0.5 MG/DL (0.2-1.0); BLOOD UREA NITROGEN 12 MG/DL (7-18); CALCIUM LEVEL 8.9 MG/DL (8.5-10.1); CARBON DIOXIDE LEVEL 26 MEQ/L (21-32); CHLORIDE LEVEL 108 MEQ/L (98-107); CREATININE FOR GFR 0.85 MG/DL (0.70-1.30); ETHYL ALCOHOL (ETHANOL) < 0.003 % (0.000-0.010); GLOMERULAR FILTRATION RATE > 60.0 (>60); GLUCOSE, FASTING 95 MG/DL (70-100); POTASSIUM SERUM 3.9 MEQ/L (3.5-5.1); SALICYLATE LEVEL < 1.7 MG/DL (5.0-30.0); SODIUM LEVEL 142 MEQ/L (136-145); TOTAL PROTEIN 7.8 GM/DL (6.4-8.2)
[2019-03-05] MEDS ORDERED: MAALOX 30 ML SUSP *UDC PO PRN (22:00)
[2019-03-05] MEDS ORDERED: traZODone 50 MG TAB PO PRN (22:00)
[2019-03-05] MEDS ORDERED: ACETAMINOPHEN TAB 650MG DOSE (2X325MG) PO PRN (22:00)
[2019-03-05] MEDS ORDERED: MOM 30ML SUSPENSION UDC PO PRN (22:00)
[2019-03-05] MEDS ORDERED: DIPH50CA PO (23:08)
[2019-03-05] MEDS ORDERED: ABIL1INJ2 IM (23:08)
[2019-03-06 01:06] VITALS: BP 135/70
[2019-03-06] MEDS: LORazepam 1 MG TAB PO PRN ×2 (04:13→14:35)
[2019-03-06 12:06] VITALS: BP 129/82
[2019-03-06] MEDS: OLANZapine 5 MG TAB PO PRN (17:45)
[2019-03-06 18:16] VITALS: BP 142/87
[2019-03-06 20:00] VITALS: BP 143/76
[2019-03-07] MEDS: LORazepam 1 MG TAB PO PRN ×3 (06:14→13:49)
[2019-03-07 07:03] VITALS: BP 133/79
--- NOTE | 2019-03-07 08:16 | HPE ---
DATE OF ADMISSION: 03/05/2019 This is a hospitalist-generated patient mental health history physical. The patient Attila Bryant has a long psychiatric history with frequent hospitalizations. He denies any recent significant changes in his health from the last time he had an whole history and physical (H and P) done on 11/16/2018. PAST MEDICAL HISTORY: Anxiety, depression, schizophrenia, schizoaffective, history of hyperlipidemia. SURGICAL HISTORY: None. SOCIAL HISTORY: He lives in [place] near his parents with a girlfriend and a 7-month old child. Unemployed. Chews tobacco. Occasional marijuana use. FAMILY HISTORY: Mother has skin cancer. REVIEW OF SYSTEMS: No chest pain, shortness of breath. PHYSICAL EXAMINATION: VITAL SIGNS: As listed. GENERAL: Well appearing, healthy, no distress, cooperative. Speech is appropriate, answers are goal directed. HEENT: Unremarkable. LUNGS: Clear. HEART: Regulars, no murmurs. ABDOMEN: Soft, nontender, no masses. EXTREMITIES: No peripheral edema. Good distal pulses. Normal coordination. Normal gait, no Romberg present. IMPRESSION: Mild hyperlipidemia. He would probably benefit from a low lipid diet after discharge, otherwise, he has no ongoing medical issues for which I could foresee needing further hospitalist care during this admission.
[2019-03-07] MEDS: OLANZapine 5 MG TAB PO PRN (09:41)
[2019-03-07] MEDS ORDERED: PALIPERIDONE 3 MG ER TAB (INVEGA) PO ONE (10:30)
--- NOTE | 2019-03-07 10:34 | MHIPNPDOC ---
[facility] Progress Note Progress Note Date of Service: 03/07/2019 History of Present Illness The patient, a 34-year-old man, with long history of schizophrenia presents in a psychotic and paranoid state. He has previously been quite agitated on the unit when he presents, however, on this instance, he appears to be primarily more paranoid, but is much more amenable and has not demonstrated any violence. Interval History The patient's met briefly in his room where he describes that he's fairly worried about various "red cars" that have been driving around. He continues to feel that this is not a delusion. He has remained in his room for the majority of the day, huddled in his covers, unable to socialize, attending no groups. Staff note that he has not been violent, but has been focused on discharge. He's currently on no medications prior to coming in. Review Of Systems He still has significant paranoia, disorganization and altered thoughts. Psychotherapy None on this visit. Vital Signs Reviewed. Mental Status Examination General: Fair hygiene Speech: Pressured Thought processes: Circumstantial MSK: Smooth and coordinated gait, no signs of tremors or involuntary orofacial movements Thought content: Paranoid Abstract reasoning, and computation: Impaired Description of associations: Loose Description of abnormal or psychotic thoughts: Denies any suicidal or homicidal ideation. Denies any auditory or visual hallucinations. Does not appear to be responding to internal stimuli. Appears to be endorsing significant paranoid ideation as mentioned above. Judgment: Poor Insight: Poor Orientation: Alert and orientated 3 Cognition: Grossly normal Recent and remote memory: Intact Attention span and concentration: Intact Fund of knowledge: Adequate Mood: "Fine" Affect: Flat with little reactivity Diagnoses Unspecified psychotic disorder. Assessment and Plan The patient's psychosis will likely need start of a significantly more powerful neuroleptics such as Invega. Patient will be started on Invega 3 mg daily and likely transition to the Invega Sustenna shot, as he has notable poor compliance as an outpatient where he repeatedly presents for treatment. His previous admission, he received Haldol Decanoate, which is only a 2-week shot and he'll likely need more intensive treatment including an AOT, as his situation becomes increasingly more complex and his symptoms more resistant. Disposition The patient's still fairly psychotic and pose a significant danger to himself and others if he were to be discharged at this time. Time Spent 15 minutes face to face. Thursday Vital Signs Vital Signs Date Time Temp Pulse Resp B/P (MAP) Pulse Ox O2 Delivery O2 Flow Rate FiO2 03/07/19 07:03 97.6 81 18 133/79 (97) 03/06/19 01:06 97 03/06/19 00:46 Room Air Current Medications Current Medications Acetaminophen (Tylenol Tab) 650 mg Q6HP PRN PO HEADACHE or DISCOMFORT; Start 03/05/19 at 22:00 Al Hydrox/Mg Hydrox/Simethicone (Mylanta) 30 ml Q4HP PRN PO HEARTBURN/INDIGESTION; Start 03/05/19 at 22:00 Home Med (Med Rec Complete!) ASDIRECTED XX ; Start 03/05/19 at 23:15; Stop 03/05/19 at 23:15; Status DC Lorazepam (Ativan) 1 mg Q6HP PRN PO ANXIETY/AGITATION Last administered on 03/07/19at 07:01; Start 03/05/19 at 22:00 Magnesium Hydroxide (Milk Of Magnesia) 30 ml DAILYPRN PRN PO CONSTIPATION; Start 03/05/19 at 22:00 Olanzapine (ZyPREXA) 5 mg Q4HP PRN PO AGITATION Last administered on 03/07/19at 09:41; Start 03/05/19 at 22:00 Paliperidone (Invega) 3 mg QAM PO ; Start 03/08/19 at 09:00; Status UNV Trazodone HCl (Desyrel) 50 mg QHSP PRN PO INSOMNIA; Start 03/05/19 at 22:00 Allergies Coded Allergies: No Known Allergies (Verified , 03/18/12) DANE BECKETT DO Mar 07, 2019 10:34
[2019-03-07 18:00] VITALS: BP 116/56
[2019-03-08] MEDS: LORazepam 1 MG TAB PO PRN ×3 (06:17→21:25)
[2019-03-08 06:41] VITALS: BP 160/83
[2019-03-08] MEDS: PALIPERIDONE 3 MG ER TAB (INVEGA) PO SCH (09:28)
[2019-03-08] MEDS: OLANZapine 5 MG TAB PO PRN (11:27)
--- NOTE | 2019-03-08 12:35 | MHIPNPDOC ---
[facility] Progress Note Progress Note Date of Service: 03/08/2019 History of Present Illness The patient, a 34-year-old man, with long history of schizophrenia presents in a psychotic and paranoid state. He has previously been quite agitated on the unit when he presents, however, on this instance, he appears to be primarily more paranoid, but is much more amenable and has not demonstrated any violence. Interval History The patient is met with today. He has been reportedly fairly amenable in the unit and by his baseline from previous admissions that the staff knows him from. He is doing quite well. He has had no agitation episodes and has been kind and friendly to the staff. He does appear generally preoccupied with discharge, however, he has been generally amenable when redirected. The patient describes that he is feeling much improved on the Invega and is open to signing a release to start the AOT hearings as he feels it would be helpful. He declines the Abilify Maintena shot that is due tomorrow as he reports that he feels that it gives him shakiness as an outpatient and that he is not amenable. He reports that he would like to stay on the Invega and later try an injectable version of it. Review Of Systems Denies any side effects from the medication such as tremor, GI upset. Reports improving anxiety. Psychotherapy None on this visit. Vital Signs Reviewed. Mental Status Examination General: Well dressed with good hygiene Speech: Spontaneous and fluid Thought processes: Linear and logical MSK: Smooth and coordinated gait, no signs of tremors or involuntary orofacial movements Thought content: Future orientated Abstract reasoning, and computation: Intact Description of associations: Intact Description of abnormal or psychotic thoughts: Denies any suicidal or homicidal ideation. Denies any auditory or visual hallucinations. Does not appear to be responding to internal stimuli. Does not appear to be endorsing any bizarre or paranoid ideation. Judgment: fair Insight: fair Orientation: Alert and orientated 3 Cognition: Grossly normal Recent and remote memory: Intact Attention span and concentration: Intact Fund of knowledge: Adequate Mood: "okay" Affect: Euthymic with a full range Diagnoses Unspecified psychotic disorder. Previous history of schizoaffective disorder. Assessment and Plan The patient appears to be doing fairly well on the Invega dose and he does have the ability to elect not to take the Abilify Maintena. He has been generally amenable and has done well in this admission significantly compared to previous ones. He did endorse some bizarre ideation on his first meeting with his provider, but has since ceased that. We'll increase Invega to 6 mg daily and continue with AOT application. Disposition The patient will be discharged tomorrow as he no longer meets involuntary criteria and does not wish to stay for further voluntary admission for medication titration. Time Spent 15 minutes sole-wp-lisz. Thursday Vital Signs Vital Signs Date Time Temp Pulse Resp B/P (MAP) Pulse Ox O2 Delivery O2 Flow Rate FiO2 03/08/19 06:41 98.3 77 14 160/83 (108) 03/06/19 01:06 97 03/06/19 00:46 Room Air Current Medications Current Medications Acetaminophen (Tylenol Tab) 650 mg Q6HP PRN PO HEADACHE or DISCOMFORT; Start 03/05/19 at 22:00 Al Hydrox/Mg Hydrox/Simethicone (Mylanta) 30 ml Q4HP PRN PO HEARTBURN/INDIGESTION; Start 03/05/19 at 22:00 Home Med (Med Rec Complete!) ASDIRECTED XX ; Start 03/05/19 at 23:15; Stop 03/05/19 at 23:15; Status DC Lorazepam (Ativan) 1 mg Q6HP PRN PO ANXIETY/AGITATION Last administered on 03/08/19at 06:17; Start 03/05/19 at 22:00 Magnesium Hydroxide (Milk Of Magnesia) 30 ml DAILYPRN PRN PO CONSTIPATION; Start 03/05/19 at 22:00 Olanzapine (ZyPREXA) 5 mg Q4HP PRN PO AGITATION Last administered on 03/08/19at 11:27; Start 03/05/19 at 22:00 Paliperidone (Invega) 3 mg QAM PO Last administered on 03/08/19at 09:28; Start 03/08/19 at 09:00 Trazodone HCl (Desyrel) 50 mg QHSP PRN PO INSOMNIA; Start 03/05/19 at 22:00 Allergies Coded Allergies: No Known Allergies (Verified , 03/18/12) DANE BECKETT DO Mar 08, 2019 12:35
--- NOTE | 2019-03-08 13:45 | MHHPE ---
DATE OF ADMISSION: 03/05/2019 CHIEF COMPLAINT: Feels stressed. SUBJECTIVE: 34 years old. Has a girlfriend and a son. Stays with his parents. He has a long history of psychosis, schizoaffective disorder with schizophrenia. I have known him from previous hospitalizations here, and the outpatient clinic. He currently is supposed to attend the [facility], has had hospitalizations including this year, was here about 3 months ago. Please refer to previous summaries including Dr. Meier's discharge summary from November this for details related to those admissions. The patient has been paranoid, does not adhere to treatment recommendations, and when last here, was discharged on Haldol decanoate, full Haldol, Benadryl, Inderal. Was brought to the hospital by police, had been intrusive at the bar, says he was warning others to look out for strange cars that he had been seeing all over the place, including in his community, he says they were silver cars and that it was as if a nefarious organizations were buying them for their followers, he is not quite sure of what was going on, says wanted to protect the people around him, including his fiance. Says this is also related to cars for the troopers, and he then relates to conspiracies of various types. Says been trying to zenia several organizations and people, but that nobody has gotten back to him. Says he stays indoors, most of the time, gets out and about his father's property, but not much. Says he spends time with family, goes to the bar. Says he has been smoking including cannabis. He has been on Abilify Maintena, says it makes him more depressed, and suggests that he felt depressed on the Haldol decanoate as well, does not wish to use any Abilify Maintena anymore, apparently got his last injection last month, but I have no way of confirming that. PAST PSYCHIATRIC HISTORY: Long history of psychosis, please refer to previous summaries, including Dr. Toro discharge summary from November for details of those admissions. The patient has been paranoid, does not adhere to treatment recommendations, and when last here, was discharged on the Haldol decanoate, full Haldol, Benadryl and Inderal. He carries the diagnosis of schizoaffective disorder bipolar type versus schizophrenia. Several hospitalizations, the most recent one about 3 months ago. SOCIAL HISTORY: Please refer to previous summaries, has a girlfriend. They have been together for the last 3 years or so, has a son with her about 6 months old. Stays at his parents place. MENTAL STATUS EXAMINATION: Fair hygiene, guarded, but cooperative overall, gets up paces the room, displays mild agitation. No psychomotor retardation. He is coherent. He is mildly anxious, with an affect that is restricted in range. Denies any suicidal thoughts or intents. No homicidal ideas or intents. Has delusions, mostly of persecution. He is alert and oriented. Intellect is average. Judgment and insight are quite poor. ASSESSMENT: Schizoaffective disorder bipolar type. Current episode possibly manic with psychotic features. Nonadherence to treatment recommendations. Cannabis use disorder. He is psychotic, deluded, delusions of persecution, intrusive, agitated at times, but less so that he has been in the past, and the delusions interfere distinctly with his functioning. This compromises his ability to cater for himself. PLAN: He is admitted to the inpatient psychiatry unit, placed on the relevant precautions. We will look at obtaining collateral information. I would suggest that he consider resuming the Abilify Maintena, he declines that, says would want something along the lines of Ativan, which he has been off it temporarily to help with anxiety. He requires an antipsychotic medication, given his current psychosis and the interference with his functioning. I would suggest considering paliperidone, by mouth, and then if tolerated, intramuscular, particularly he did not refuse it in the past for which a review of the history will be required. He is to be encouraged to participate in activities on the unit. He will be seen by the assigned psychiatrist tomorrow, as well as the treatment team. I anticipate a 5-7 day stay for the patient. The assessment took 30 minutes. VITAL SIGNS: Blood pressure 129/82, pulse 75, temperature 100.6. INVESTIGATIONS: Complete blood count essentially within normal limits. Metabolic profile essentially within normal limits. Toxicology is positive for cannabinoids.
[2019-03-08 18:00] VITALS: BP 135/83
[2019-03-09 06:39] VITALS: BP 144/90
[2019-03-09] MEDS: OLANZapine 5 MG TAB PO PRN (08:26)
[2019-03-09] MEDS: PALIPERIDONE 3 MG ER TAB (INVEGA) PO SCH (08:26)
[2019-03-09] MEDS ORDERED: ARIPiprazole MONOHYDRATE 400 MG INJ (ABILIFY)(J0401) IM ONE (10:00)
[2019-03-09] MEDS ORDERED: PALI1TAB2 PO (10:38)
[2019-03-09] MEDS ORDERED: CLON0.5T17 PO (10:53)
--- NOTE | 2019-03-09 14:40 | MHDSPDOC ---
[facility] Discharge Summary Discharge Summary DATE OF ADMISSION: Mar 05, 2019 at 21:47 DATE OF DISCHARGE: Mar 09, 2019 at 11:05 Date of Service: 03/09/2019 Diagnoses Unspecified psychotic disorder. Methamphetamine use disorder. Benzodiazepine use disorder. History of Present Illness The patient, a 34-year-old man, with long history of schizophrenia presents in a psychotic and paranoid state. He has previously been quite agitated on the unit when he presents, however, on this instance, he appears to be primarily more paranoid, but is much more amenable and has not demonstrated any violence. Consultants Involved Hospitalist/PCP screening Treatment and Progress On The Unit The patient was admitted to the inpatient unit and subsequently started on 3 mg of Invega. He did make some progress and notably he's well-known to the unit including this provider from previous admissions. He was expected to be quite aggressive, however, he was very amenable and easily able to be redirected which is generally considered baseline for the patient. He did continue to endorse his bizarre thoughts about a conspiracy theory relating to the troopers. However, he was able to attend to his needs and demonstrate no homicidal or suicidal ideatio n on the unit. He did improve significantly well over the next several days. He declined to have his next Abilify Maintena injection as he reported that it made him dizzy. Discussed the risks and benefits of several approaches and he elected to do Invega Sustenna. Once he has tried the Invega for a longer period of time. He did utilized the Ativan significantly during the admission, however, he was told that he would not be containing all this as an outpatient and he was given one tablet of clonazepam if he should have any withdrawal symptoms, as he had requested discharge and no longer met involuntary criteria. Discharge Assessment The patient a 34-year-old man with a history of reported schizoaffective disorder who presents in a psychotic state that is much different than his prior presentations. He appears much more amenable and able to control himself. He does not demonstrate any significant danger to himself or others and does not appear to be gravely disabled. He does not meet further involuntary criteria and elects against a further voluntary admission. He elects to continue with the oral Invega. He still maintained his bizarre belief system about a conspiracy theory, however, from previous admissions, this is the patient's general baseline. He did sign for an AOT, so that he may be assisted as an outpatient and seem very amenable to it. Mental Status Examination General: Well dressed with good hygiene Speech: Spontaneous and fluid Thought processes: Linear and logical MSK: Smooth and coordinated gait, no signs of tremors or involuntary orofacial movements Thought content: Future orientated Abstract reasoning, and computation: Intact Description of associations: Baseline loosened Description of abnormal or psychotic thoughts: Denies any suicidal or homicidal ideation. Denies any auditory or visual hallucinations. Does not appear to be responding to internal stimuli. The patient does not significantly endorse any bizarre or paranoid ideation other than his chronic beliefs about the state troopers. Judgment: Baseline Insight: Baseline Orientation: Alert and orientated 3 Cognition: Grossly normal Recent and remote memory: Intact Attention span and concentration: Intact Fund of knowledge: Adequate Mood: "okay" Affect: Euthymic with a full range Follow Up The social work team worked during the predischarge meeting in order to evaluate for further issues of lethality address them fully before discharge. They worked on safety planning with the patient's family members in order to ensure that the patient will have a safe and effective discharge. The patient will be discharged on 3 mg of Invega p.o. daily with follow up with [facility] as well as AOT for coordination of outpatient care due to multiple admissions. Time Spent The amount of time spent in the coordination of care for this patient was approximately 45 minutes. Thursday Vital Signs/I&Os Vital Signs Date Time Temp Pulse Resp B/P (MAP) Pulse Ox O2 Delivery O2 Flow Rate FiO2 03/09/19 06:39 97.6 88 16 144/90 (108) 03/06/19 01:06 97 03/06/19 00:46 Room Air Medications Scheduled Paliperidone (Paliperidone ER) 3 Mg Tab.er.24, 3 MG PO QAM for psychosis for 7 Days, #7 Scheduled PRN Clonazepam (Clonazepam) 0.5 Mg Tab.rapdis, 1 TAB PO ONCE PRN for WITHDRAWAL SYMPTOMS for 1 Days, #1 Allergies Coded Allergies: No Known Allergies (Verified , 03/18/12) DANE BECKETT DO Mar 09, 2019 14:40
[2019-03-10] MEDS ORDERED: PALIPERIDONE 3 MG ER TAB (INVEGA) PO SCH (09:00)
== END 2019-03-09 11:05 | disposition home or self-care (01) | DRG 751 ==
LOC: M ED 18:22 → M ED INP 21:47 → M PSY 03-06 00:56
PROVIDERS: ADMIT Psychiatry & Neurology Psychiatry; ATTEND Psychiatry & Neurology Addiction Medicine
DX: F29 Unspecified psychosis not due to a substance or known physiological condition (principal); F11.90 Opioid use, unspecified, uncomplicated

== ENCOUNTER 2019-05-28 12:50 | Inpatient (IN) | payer OTHER ==
[~2019-05-28] VITALS: Ht 182.9 cm; Wt 85.7 kg
[~2019-05-28 12:50] MED LIST changes: +ABIL1INJ2 IM; +CLON0.5T17 PO; +PALI1TAB2 PO
[2019-05-28 13:12] LABS: HEMATOCRIT 45.9 % (42.0-52.0); HEMOGLOBIN 15.7 g/dl (13.5-17.5); MEAN CORPUSCULAR HEMOGLOBIN 29.3 pg (27.0-33.0); MEAN CORPUSCULAR HGB CONC 34.2 g/dl (32.0-36.5); MEAN CORPUSCULAR VOLUME 85.8 fl (80.0-96.0); PLATELET COUNT, AUTOMATED 227 10^3/uL (150-450); RED BLOOD COUNT 5.35 10^6/uL (4.30-6.10); WHITE BLOOD COUNT 8.8 10^3/uL (4.0-10.0)
[2019-05-28 13:40] LABS: ACETAMINOPHEN LEVEL < 2.0 UG/ML (10.0-30.0); ALBUMIN 4.2 GM/DL (3.2-5.2); ALT/SGPT 20 U/L (12-78); BILIRUBIN,DIRECT 0.1 MG/DL (0.0-0.2); BILIRUBIN,TOTAL 0.4 MG/DL (0.2-1.0); BLOOD UREA NITROGEN 10 MG/DL (7-18); CALCIUM LEVEL 8.8 MG/DL (8.5-10.1); CARBON DIOXIDE LEVEL 28 MEQ/L (21-32); CHLORIDE LEVEL 107 MEQ/L (98-107); CREATININE FOR GFR 0.89 MG/DL (0.70-1.30); ETHYL ALCOHOL (ETHANOL) < 0.003 % (0.000-0.010); GLOMERULAR FILTRATION RATE > 60.0 (>60); GLUCOSE, FASTING 123 MG/DL (70-100); POTASSIUM SERUM 3.8 MEQ/L (3.5-5.1); SALICYLATE LEVEL < 1.7 MG/DL (5.0-30.0); SODIUM LEVEL 141 MEQ/L (136-145); TOTAL PROTEIN 7.4 GM/DL (6.4-8.2)
[2019-05-28 13:59] LABS: AMPHETAMINES LEVEL URINE NEGATIVE (NEGATIVE); BARBITURATES URINE NEGATIVE (NEGATIVE); BENZODIAZEPINES URINE NEGATIVE (NEGATIVE); CANNABINOIDS URINE POSITIVE (NEGATIVE); COCAINE METABOLITE URINE NEGATIVE (NEGATIVE); METHADONE URINE NEGATIVE (NEGATIVE); OPIATES URINE NEGATIVE (NEGATIVE); PHENCYCLIDINE URINE NEGATIVE (NEGATIVE)
[2019-05-28] MEDS ORDERED: clonazePAM 0.5 MG TAB PO ONE (18:15)
[2019-05-28] MEDS ORDERED: PALIPERIDONE 3 MG ER TAB (INVEGA) PO ONE (18:15)
[2019-05-29] MEDS ORDERED: chlorproMAZINE 25 MG TAB (Q0161) PO ONE (00:30)
[2019-05-29] MEDS ORDERED: PALIPERIDONE 3 MG ER TAB (INVEGA) PO ONE ×2 (08:00→14:45)
[2019-05-29] MEDS ORDERED: clonazePAM 0.5 MG TAB PO ONE (08:15)
[2019-05-29] MEDS: LORazepam 2 MG TAB PO PRN (14:54)
--- NOTE | 2019-05-29 18:54 | ECGEPIP ---
[facility] - ED Test Date: 2019-05-28 Pat Name: DANE HARRIS Department: Room: - Gender: Male Vice President Of Operations: TC : 1985 Requested By: Anthony Walton Order Number: [id number] Reading MD: Jeb Franco Measurements Intervals [place] Rate: 65 P: 53 SC: 142 QRS: 75 QRSD: 106 T: 66 QT: 358 QTc: 373 Interpretive Statements SINUS RHYTHM WITH SINUS ARRHYTHMIA POSSIBLE LEFT VENTRICULAR HYPERTROPHY ST elev probable normal early repol pattern Similar to tracing done 03-16-18 Electronically Signed on 05-29-2019 18:54:17 EDT by Jeb Franco
[2019-05-30] MEDS ORDERED: VITA100T89 PO (08:12)
[2019-05-30] MEDS ORDERED: CYAN500T8 PO (08:12)
[2019-05-30] MEDS ORDERED: NIAC1TAB5 PO (08:12)
[2019-05-30] MEDS ORDERED: THIAMINE 100 MG TAB PO ONE (09:00)
[2019-05-30] MEDS ORDERED: CYANOCOBALAMIN 500 MCG TAB PO ONE (09:00)
[2019-05-30] MEDS: LORazepam 2 MG TAB PO PRN ×2 (10:18→19:00)
[2019-05-30] MEDS ORDERED: MOM 30ML SUSPENSION UDC PO PRN (14:30)
[2019-05-30] MEDS ORDERED: MAALOX 30 ML SUSP *UDC PO PRN (14:30)
[2019-05-30] MEDS ORDERED: ACETAMINOPHEN TAB 650MG DOSE (2X325MG) PO PRN (14:30)
[2019-05-30] MEDS: THIAMINE 100 MG TAB PO SCH (15:08)
[2019-05-30] MEDS: CYANOCOBALAMIN 500 MCG TAB PO SCH (15:09)
[2019-05-30] MEDS: PALIPERIDONE 3 MG ER TAB (INVEGA) PO SCH (15:09)
[2019-05-30 17:38] VITALS: BP 141/87
[2019-05-30] MEDS: OLANZapine ORAL DISINTEGRATING TAB 5MG PO PRN (20:19)
[2019-05-30] MEDS: NIACIN SR (NIASPAN) 500 MG TAB PO SCH (21:14)
[2019-05-31] MEDS: OLANZapine ORAL DISINTEGRATING TAB 5MG PO PRN (03:49)
[2019-05-31 06:37] VITALS: BP 140/86
[2019-05-31] MEDS: CYANOCOBALAMIN 500 MCG TAB PO SCH (08:54)
[2019-05-31] MEDS: THIAMINE 100 MG TAB PO SCH (08:54)
[2019-05-31] MEDS: PALIPERIDONE 3 MG ER TAB (INVEGA) PO SCH (08:54)
[2019-05-31] MEDS: NICOTINE 21MG/24HR 1 EA TRANSDERMAL TD PRN (09:56)
--- NOTE | 2019-05-31 10:43 | MHHPEPDOC ---
General Date Of Admission: May 30, 2019 Legal Status: 9.39 Chief Complaint "The police came to house, handcuffed me, and brought me here." History of Present Illness HISTORY OF THE PRESENT ILLNESS: Patient is a 34 -year-old , male, with a history of paranoid schizophrenia, noncompliance medications, and follow-up, multiple admits [facility] for psychosis who was brought to Ed by PD after his ex- girlfriend who is living in [place] with their 3y/o son, stating pt sent text to her regarding suicide. Pt in ED stated police came into his home with he was sleeping and handcuffed him and brought him here. Pt per ED, tangential, disorganized, agitated, demanding, and required security to be called for pt to cooperate in ED. Per ED pt talking about the government "stalking" him, out to get him, and cursing about the government. Pt is noncompliant on his outpatient medication and stated in ED that cannabis and natural substances are his medicines. Stated in ED "Now I'm suicidal b/c you brought me here... you bring me in here makes me want to shoot myself in the with a gun... try going thru it you stupid bitch." Psychiatric Review of Systems Depression (2 or more weeks): denies Lise (4 or more days of): irritable/elevated mood, expansive mood Psychosis: auditory hallucination, delusions, paranoia, disorganization PTSD: denies Anxiety: situational anxiety, stressor related anxiety Anxiety/ 6 months or more of: restlessness, keyed up, difficulty concentrating, irritability, muscle tension, personality cluster A,BC (antisocial, narcissistic) Past Psychiatric History Previous Psychiatric Diagnosis: Paranoid Schizophrenia. Previous Psychiatric Admissions: roughly 9, 4 in 2018 to [facility] with last 03/09/19 Suicide Attempts: denies. Psychiatric Follow-up: Dr. Vega, noncompliant, [facility] noncompliant, fired old PCP b/c they thought he needed antipsychotics and has new PCP appt 11/27 Psychiatric medications: noncompliant. Past Medical History Medical Problems denies Head Injury: No Seizures: No Hospitalizations: No Surgeries: No Family Medical/Psychiatric HX Medical Problems noncontributory Psychiatric Disorders: No Addiction: No Suicide Attemps/Completions: No Addiction History other (daily cannabis) Social History Childhood: born and raised [place], [place]. 2 Parent home, good childhood, father is very supportive. Abuse/Trauma:unknown. Current Living Situation: lives alone Education: high school diploma and bachelor's in business Employment: SSDI. Social Support: father. Legal: none known. Marital: single, never . Girlfriend left him and went to [place] with their 8mo old son Mental Status Examination General Appearance: well groomed, appears stated age, hospital scubs/clothing Build: average Demeanor: average, preoccupied (government), guarded Eye Contact: fair Activity: average Behavior: cooperative Speech: clear, spontaneous, reg/rate,rhythm,volume Mood: euthymic, anxious Mood "ok" Affect: constricted, appropriate, anxious Thought Process: logical/linear (mildly), concrete Thought Content (Delusions): denies SI, HI, AVH, paranoia (reguarding the government being after him) Thought Content (Other): preoccupied (government), appears paranoid Thought Content (Aggressive): none reported Perception (Hallucinations): none reported Perception (Other): none reported Cognition (Impairment of): none reported Cognition(Intelligence Est.): average Oriented: Awake, Alert, Oriented times three Insight: poor Judgment: Fair Psychosis: Psychotic Perceptions Diagnoses Paranoid Schizophrenia A-FIB/CHADSVASC A-FIB History Current/History of A-Fib/PAF?: No Assessment Pt seen and states he's ok, just something went on between he and his ex- girlfriend as they got into an argument over the phone about their son b/c she doesn't want pt to see him, and girlfriend called the police lying about him sending a suicidal text. He denies SI/HI. He was started on invega 3mg bid while in the ED awaiting a bed and is therefore calm and less delusional, paranoid, agitated today. Agreeable to taking invega sustenna today. He is more cooperative today than he has been in the past during his treatments on [facility]. Initial Treatment Plan 1. Patient was admitted on a 9.39 status. 2. Complete history was obtained. 3. With patients permission, family will be contacted and database will be expanded. 4. Patients medication regimen will be reviewed and changed accordingly. 5. Patient will be provided with protected environment. 6. Patient will be treated with individual, group, and milieu therapies. 7. Patient will receive supportive psych-education. 8. Discharge planning will commence immediately. 9. Outpatient follow-up treatment will be strongly recommended. 10. The initial treatment plan will focus initially on: Depression. Risk for suicide. Substance abuse. 11. invega 3mg bid, invega sustenna 234mg im today then 156mg IM in 3 days, zyprexa 5mg q4hr prn anxiety/agitation, benadryl 50mg q4hr prn anxiety/agitation ESTIMATED LENGTH OF STAY: 7-10 DAYS. TIME SPENT COUNSELING AND COORDINATING INITIAL CARE: 60 minutes. Vital Signs Vital Signs Date Time Temp Pulse Resp B/P (MAP) Pulse Ox O2 Delivery O2 Flow Rate FiO2 05/31/19 06:37 99.8 70 16 140/86 (104) 05/30/19 17:38 96 05/30/19 15:30 Room Air Medications Scheduled Cyanocobalamin (Vitamin B-12) (Vitamin B-12) 500 Mcg Tablet, 1,000 MCG PO DAILY, (Reported) Niacin (Niacin ER) 1,000 Mg Tab.er.24h, 1,000 MG PO QHS, (Reported) Thiamine Mononitrate (Vit B1) (Vitamin B-1) 100 Mg Tablet, 100 MG PO DAILY, (Reported) Allergies Coded Allergies: No Known Allergies (Verified , 03/18/12) DEMARCUS PÉREZ DO May 31, 2019 10:43 am
[2019-05-31] MEDS ORDERED: PALIPERIDONE PALMITATE 234MG/1.5ML INJ (INVEGA)(J2426)(FREE PSY INPT ONLY) IM ONE (13:00)
[2019-05-31] MEDS ORDERED: OLANZapine ORAL DISINTEGRATING TAB 5MG PO PRN (14:45)
--- NOTE | 2019-05-31 14:57 | HPEPDOC ---
General Date of Admission May 30, 2019 at 14:20 Date of Service: May 31, 2019 Chief Complaint The patient is a 34-year-old male Who presented to the ER by police because of suicidal ideation. History of Present Illness Patient is a 34-year-old male with a past medical history of schizoaffective disorder, presented to the emergency room brought in by the triage because of suicidal ideation. Patient reports that he was driving down to his girlfriend after 8 hours and sent her a text that indicated possible suicidal ideation. Patient was admitted to the inpatient mental health unit and hospitalist service was consulted for medical screening evaluation. Currently, patient reports that he is not experiencing any headache, nausea, vomiting, chest pain, shortness of breath or cough. He denies abdominal pain, constipation, diarrhea, or urinary discomfort. Patient does report intermittent palpitations. Patient reports that his weight has been relatively consistent and his appetite has been normal. Home Medications Scheduled Cyanocobalamin (Vitamin B-12) (Vitamin B-12) 500 Mcg Tablet, 1,000 MCG PO DAILY, (Reported) Niacin (Niacin ER) 1,000 Mg Tab.er.24h, 1,000 MG PO QHS, (Reported) Thiamine Mononitrate (Vit B1) (Vitamin B-1) 100 Mg Tablet, 100 MG PO DAILY, (Reported) Allergies Coded Allergies: No Known Allergies (Verified , 03/18/12) Past Medical History Medical History Schizoaffective disorder Surgical History No reported surgeries Family History - Mother with no reported medical problems - Father with a history of bipolar disorder Social History - Patient reports social alcohol use and has been using tobacco orally. 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 Review of Systems Other systems 10 point review of systems complete, all negative otherwise stated in HPI Vital Signs - Vitals: BP 140/86, HR 70, RR 16, Sat 96%RA, Temp 99.8 - General: Lying in bed, No acute distress, Speaking in full sentences, AAOx3 - HEENT: NC, AT, PERRLA, EOMI - CVS: RRR, +S1S2 - Lungs: Fair air entry bilaterally, No appreciable wheezing / rales / rhonchi - Abdomen: Soft, Non-distended, Non-tender - Extremities: No lower extremity edema, No calf tenderness - Neuro: No focal motor or sensory deficit - Skin: No visible rashes Plan / VTE VTE Prophylaxis Ordered?: Yes Plan Plan Suicidal ideation - Patient was brought into the emergency room by police after he sent a text message that indicated possible suicidal ideation - Patient currently reports that he is not suicidal - This is currently being managed by psychiatry Schizoaffective disorder - Currently being managed by psychiatry No significant medical problems DVT prophylaxis - c/w early ambulation Truck Safety Inspector was present throughout the duration of his history and physical examination Please reconsult hospitalist service as needed JORDAN FREY MD May 31, 2019 14:57
[2019-05-31 16:02] VITALS: BP 130/92
[2019-05-31] MEDS: NIACIN SR (NIASPAN) 500 MG TAB PO SCH (21:00)
[2019-05-31] MEDS: traZODone 50 MG TAB PO PRN (21:10)
[2019-06-01] MEDS ORDERED: LORazepam 1 MG TAB PO ONE
[2019-06-01 06:17] VITALS: BP 162/79
[2019-06-01] MEDS: CYANOCOBALAMIN 500 MCG TAB PO SCH (08:40)
[2019-06-01] MEDS: THIAMINE 100 MG TAB PO SCH (08:40)
[2019-06-01] MEDS: PALIPERIDONE 3 MG ER TAB (INVEGA) PO SCH (08:40)
[2019-06-01] MEDS: NICOTINE 21MG/24HR 1 EA TRANSDERMAL TD PRN (09:10)
--- NOTE | 2019-06-01 09:16 | MHIPNPDOC ---
[facility] Progress Note Progress Note DATE OF SERVICE: 06/01/19 HISTORY: Patient is a 34 -year-old , male, with a history of paranoid schizophrenia, noncompliance medications, and follow-up, multiple admits [facility] for psychosis who was brought to Ed by PD after his ex-girlfriend who is living in [place] with their 3y/o son, stating pt sent text to her regarding suicide. Pt in ED stated police came into his home with he was sleeping and handcuffed him and brought him here. Pt per ED, tangential, disorganized, agitated, demanding, and required security to be called for pt to cooperate in ED. Per ED pt talking about the government "stalking" him, out to get him, and cursing about the government. Pt is noncompliant on his outpatient medication and stated in ED that cannabis and natural substances are his medicines. Stated in ED "Now I'm suicidal b/c you brought me here... you bring me in here makes me want to shoot myself in the with a gun... try going thru it you stupid bitch." Pt seen and states he's ok, just something went on between he and his ex- girlfriend as they got into an argument over the phone about their son b/c she doesn't want pt to see him, and girlfriend called the police lying about him sending a suicidal text. He denies SI/HI. He was started on invega 3mg bid while in the ED awaiting a bed and is therefore calm and less delusional, paranoid, agitated today. Agreeable to taking invega sustenna today. He is more cooperative today than he has been in the past during his treatments on [facility]. VITAL SIGNS: See below. NEW TEST RESULTS: See below. CURRENT MEDICATIONS: See below. MENTAL STATUS EXAMINATION: General Appearance: well groomed, appears stated age, hospital scrubs/clothing Build: average Demeanor: average, preoccupied (government, [employer]), guarded Eye Contact: fair Activity: average Behavior: demanding to be given second dose invega sustenna today and refusing to listen to me Speech: clear, spontaneous, reg/rate,rhythm,volume Mood: euthymic, anxious, irritable Mood "Just give me the shot now so I can go" Affect: constricted, appropriate, anxious, irritable Thought Process: logical/linear (mildly), concrete Thought Content (Delusions): denies SI, HI, AVH, paranoia (regarding the government being after him, "the [employer] is out to persecute me and you're a nun") Thought Content (Other): preoccupied (government, [employer]), appears paranoid Thought Content (Aggressive): none reported Perception (Hallucinations): none reported Perception (Other): none reported Cognition (Impairment of): none reported Cognition(Intelligence Est.): average Oriented: Awake, Alert, Oriented times three Insight: poor Judgment: poor Psychosis: Psychotic Perceptions DIAGNOSES: paranoid schizophrenia cannabis use d/o ASSESSMENT:Pt seen today in milieu demanding that I give him his second dose of invega today so he can leave b/c "the rodriguez drive me crazy." Advised pt that he will stay here to get it on Thursday for the med, invega sustenna, to be given safely. Continues to demand he be given it today to leave today. He was very irritable and slightly agitated refusing to listen to me about med safety and demanding he still receive his second shot today. Called by staff yesterday in the afternoon due to pt agitation and pt's zyprexa prn increased to 10mg q4hr prn agitation. He continues to have paranoid delusions regarding the [employer] being out to persecute him and old me "you're a nun." Pt had to be excluded from group activities yesterday due to refusing to listen and talking about paranoid delusions and being very verbally agitated. He denies SI/HI. Pt feels safe here. MANAGEMENT PLAN: continue plan Medications: invega 3mg bid invega sustenna 234mg im 05/31 then 156mg IM in 06/03 zyprexa 10mg q4hr prn anxiety/agitation benadryl 50mg q4hr prn anxiety/agitation TIME SPENT: 30 minutes. Vital Signs Vital Signs Date Time Temp Pulse Resp B/P (MAP) Pulse Ox O2 Delivery O2 Flow Rate FiO2 06/01/19 06:17 99.0 81 16 162/79 (106) 05/30/19 17:38 96 05/30/19 15:30 Room Air Current Medications Current Medications Medications (Trade) Dose Ordered Sig/Lorenza Route PRN Reason Start Time Stop Time Status Last Admin Dose Admin Acetaminophen (Tylenol Tab) 650 mg Q6HP PRN PO HEADACHE or DISCOMFORT 05/30/19 14:30 Al Hydrox/Mg Hydrox/Simethicone (Mylanta) 30 ml Q4HP PRN PO HEARTBURN/INDIGESTION 05/30/19 14:30 Cyanocobalamin (Vitamin B12) 1,000 mcg DAILY PO 05/30/19 09:00 06/01/19 08:40 Home Med (Med Rec Complete!) ASDIRECTED XX 05/30/19 08:15 05/30/19 08:14 DC Lorazepam (Ativan) 2 mg Q4HP PRN PO AGITATION 05/29/19 14:45 05/30/19 19:01 DC 05/30/19 19:00 Magnesium Hydroxide (Milk Of Magnesia) 30 ml DAILYPRN PRN PO CONSTIPATION 05/30/19 14:30 Niacin (Niaspan) 1,000 mg QHS PO 05/30/19 21:00 05/30/19 21:14 Nicotine (Nicoderm Cq 21mg) 1 patch DAILYPRN PRN TD NICOTINE WITHDRAWAL 05/30/19 18:30 05/31/19 09:56 Olanzapine (ZyPREXA ZYDIS) 5 mg Q4HP PRN PO AGITATION 05/30/19 14:30 05/31/19 14:49 DC 05/31/19 03:49 Olanzapine (ZyPREXA ZYDIS) 10 mg Q4HP PRN PO ANXIETY/AGITATION 05/31/19 14:45 05/31/19 15:50 Paliperidone (Invega) 3 mg QAM PO 05/30/19 09:00 06/01/19 08:40 Thiamine HCl (Thiamine HCl) 100 mg DAILY PO 05/30/19 09:00 06/01/19 08:40 Trazodone HCl (Desyrel) 50 mg QHSP PRN PO INSOMNIA 05/31/19 21:15 05/31/19 21:10 Allergies Coded Allergies: No Known Allergies (Verified , 03/18/12) DEMARCUS PÉREZ DO Jun 01, 2019 9:16 am
[2019-06-01 16:08] VITALS: BP 134/90
[2019-06-01] MEDS: traZODone 50 MG TAB PO PRN (20:12)
[2019-06-01] MEDS: NIACIN SR (NIASPAN) 500 MG TAB PO SCH (20:13)
[2019-06-02 05:56] VITALS: BP 138/91
[2019-06-02] MEDS: PALIPERIDONE 3 MG ER TAB (INVEGA) PO SCH (08:08)
[2019-06-02] MEDS: CYANOCOBALAMIN 500 MCG TAB PO SCH (08:09)
[2019-06-02] MEDS: THIAMINE 100 MG TAB PO SCH (08:10)
--- NOTE | 2019-06-02 09:07 | MHIPNPDOC ---
[facility] Progress Note Progress Note DATE OF SERVICE: 06/02/19 HISTORY: Patient is a 34 -year-old , male, with a history of paranoid schizophrenia, noncompliance medications, and follow-up, multiple admits [facility] for psychosis who was brought to Ed by PD after his ex-girlfriend who is living in [place] with their 3y/o son, stating pt sent text to her regarding suicide. Pt in ED stated police came into his home with he was sleeping and handcuffed him and brought him here. Pt per ED, tangential, disorganized, agitated, demanding, and required security to be called for pt to cooperate in ED. Per ED pt talking about the government "stalking" him, out to get him, and cursing about the government. Pt is noncompliant on his outpatient medication and stated in ED that cannabis and natural substances are his medicines. Stated in ED "Now I'm suicidal b/c you brought me here... you bring me in here makes me want to shoot myself in the with a gun... try going thru it you stupid bitch." Pt seen and states he's ok, just something went on between he and his ex- girlfriend as they got into an argument over the phone about their son b/c she doesn't want pt to see him, and girlfriend called the police lying about him sending a suicidal text. He denies SI/HI. He was started on invega 3mg bid while in the ED awaiting a bed and is therefore calm and less delusional, paranoid, agitated today. Agreeable to taking invega sustenna today. He is more cooperative today than he has been in the past during his treatments on [facility]. VITAL SIGNS: See below. NEW TEST RESULTS: See below. CURRENT MEDICATIONS: See below. MENTAL STATUS EXAMINATION: General Appearance: well groomed, appears stated age, hospital scrubs/clothing Build: average Demeanor: average, preoccupied (government, [employer]), guarded Eye Contact: fair Activity: average Behavior: demanding to be given second dose invega sustenna today and refusing to listen to me Speech: clear, spontaneous, reg/rate,rhythm,volume Mood: euthymic, anxious, irritable Mood "Can I take the shot now so I can go?" Affect: constricted, appropriate, anxious, irritable Thought Process: logical/linear (mildly), concrete Thought Content (Delusions): denies SI, HI, AVH, paranoia (regarding the government being after him, "the [employer] is out to persecute me and you're a nun") Thought Content (Other): preoccupied (government, [employer]), appears paranoid Thought Content (Aggressive): none reported Perception (Hallucinations): none reported Perception (Other): none reported Cognition (Impairment of): none reported Cognition(Intelligence Est.): average Oriented: Awake, Alert, Oriented times three Insight: poor Judgment: poor Psychosis: Psychotic Perceptions DIAGNOSES: paranoid schizophrenia cannabis use d/o ASSESSMENT:Pt seen today in milieu and continues to demand that I give him his second dose of invega today so he can leave b/c "I can't stand being here." Advised pt that he will stay here to get it on Thursday for the med, invega sustenna, to be given safely. Continues to demand he be given it today to leave today. He was not as irritable and disruptive today when seen. He continues to have paranoid delusions regarding the [employer] being out to persecute him and the Government being out to get him although endorsing less often. Pt is excluded from group activities due to disruptive behavior in groups. He denies SI/HI. Pt feels safe here. MANAGEMENT PLAN: continue plan Medications: invega 3mg bid invega sustenna 234mg im 05/31 then 156mg IM in 06/03 zyprexa 10mg q4hr prn anxiety/agitation benadryl 50mg q4hr prn anxiety/agitation TIME SPENT: 30 minutes. Vital Signs Vital Signs Date Time Temp Pulse Resp B/P (MAP) Pulse Ox O2 Delivery O2 Flow Rate FiO2 06/02/19 05:56 97.4 95 18 138/91 (107) 05/30/19 17:38 96 05/30/19 15:30 Room Air Current Medications Current Medications Medications (Trade) Dose Ordered Sig/Lorenza Route PRN Reason Start Time Stop Time Status Last Admin Dose Admin Acetaminophen (Tylenol Tab) 650 mg Q6HP PRN PO HEADACHE or DISCOMFORT 05/30/19 14:30 Al Hydrox/Mg Hydrox/Simethicone (Mylanta) 30 ml Q4HP PRN PO HEARTBURN/INDIGESTION 05/30/19 14:30 Cyanocobalamin (Vitamin B12) 1,000 mcg DAILY PO 05/30/19 09:00 06/02/19 08:09 Home Med (Med Rec Complete!) ASDIRECTED XX 05/30/19 08:15 05/30/19 08:14 DC Lorazepam (Ativan) 2 mg Q4HP PRN PO AGITATION 05/29/19 14:45 05/30/19 19:01 DC 05/30/19 19:00 Magnesium Hydroxide (Milk Of Magnesia) 30 ml DAILYPRN PRN PO CONSTIPATION 05/30/19 14:30 Niacin (Niaspan) 1,000 mg QHS PO 05/30/19 21:00 05/30/19 21:14 Nicotine (Nicoderm Cq 21mg) 1 patch DAILYPRN PRN TD NICOTINE WITHDRAWAL 05/30/19 18:30 06/01/19 09:10 Olanzapine (ZyPREXA ZYDIS) 5 mg Q4HP PRN PO AGITATION 05/30/19 14:30 05/31/19 14:49 DC 05/31/19 03:49 Olanzapine (ZyPREXA ZYDIS) 10 mg Q4HP PRN PO ANXIETY/AGITATION 05/31/19 14:45 05/31/19 15:50 Paliperidone (Invega) 3 mg QAM PO 05/30/19 09:00 06/02/19 08:08 Thiamine HCl (Thiamine HCl) 100 mg DAILY PO 05/30/19 09:00 06/01/19 08:40 Trazodone HCl (Desyrel) 50 mg QHSP PRN PO INSOMNIA 05/31/19 21:15 06/01/19 20:12 Allergies Coded Allergies: No Known Allergies (Verified , 03/18/12) DEMARCUS PÉREZ DO Jun 02, 2019 9:07 am
[2019-06-02] MEDS ORDERED: LORazepam 1 MG TAB PO ONE ×2 (14:00→20:00)
[2019-06-02 17:39] VITALS: BP 133/72
[2019-06-02] MEDS: NIACIN SR (NIASPAN) 500 MG TAB PO SCH (21:00)
[2019-06-03 06:08] VITALS: BP 130/79
[2019-06-03] MEDS: PALIPERIDONE 3 MG ER TAB (INVEGA) PO SCH (08:03)
[2019-06-03] MEDS: CYANOCOBALAMIN 500 MCG TAB PO SCH (08:03)
[2019-06-03] MEDS: THIAMINE 100 MG TAB PO SCH (08:03)
[2019-06-03] MEDS: NICOTINE 21MG/24HR 1 EA TRANSDERMAL TD PRN (08:04)
[2019-06-03] MEDS ORDERED: PALIPERIDONE PALMITATE 156MG/1ML INJ(INVEGA)(J2426 PER 1MG)(INFUS OUTPT) IM ONE (09:00)
[2019-06-03] MEDS: LORazepam 1 MG TAB PO PRN ×2 (09:25→15:34)
--- NOTE | 2019-06-03 09:49 | MHIPNPDOC ---
[facility] Progress Note Progress Note DATE OF SERVICE: 06/03/19 HISTORY: Patient is a 34 -year-old , male, with a history of paranoid schizophrenia, noncompliance medications, and follow-up, multiple admits [facility] for psychosis who was brought to Ed by PD after his ex-girlfriend who is living in [place] with their 3y/o son, stating pt sent text to her regarding suicide. Pt in ED stated police came into his home with he was sleeping and handcuffed him and brought him here. Pt per ED, tangential, disorganized, agitated, demanding, and required security to be called for pt to cooperate in ED. Per ED pt talking about the government "stalking" him, out to get him, and cursing about the government. Pt is noncompliant on his outpatient medication and stated in ED that cannabis and natural substances are his medicines. Stated in ED "Now I'm suicidal b/c you brought me here... you bring me in here makes me want to shoot myself in the with a gun... try going thru it you stupid bitch." Pt seen and states he's ok, just something went on between he and his ex- girlfriend as they got into an argument over the phone about their son b/c she doesn't want pt to see him, and girlfriend called the police lying about him sending a suicidal text. He denies SI/HI. He was started on invega 3mg bid while in the ED awaiting a bed and is therefore calm and less delusional, paranoid, agitated today. Agreeable to taking invega sustenna today. He is more cooperative today than he has been in the past during his treatments on [facility]. VITAL SIGNS: See below. NEW TEST RESULTS: See below. CURRENT MEDICATIONS: See below. MENTAL STATUS EXAMINATION: General Appearance: well groomed, appears stated age, hospital scrubs/clothing Build: average Demeanor: average, preoccupied (government, [employer]), guarded Eye Contact: fair Activity: average Behavior: demanding he be d/c on ativan b/c it's the only thing that helps him Speech: clear, spontaneous, reg/rate,rhythm,volume Mood: euthymic, anxious, irritable Mood "What makes you think I have schizophrenia" Affect: constricted, appropriate, anxious, irritable Thought Process: logical/linear (mildly), concrete Thought Content (Delusions): denies SI, HI, AVH, paranoia (regarding the government being after him, "the [employer] is out to persecute me and you're a nun") Thought Content (Other): preoccupied (government, [employer]), appears paranoid Thought Content (Aggressive): none reported Perception (Hallucinations): none reported Perception (Other): none reported Cognition (Impairment of): none reported Cognition(Intelligence Est.): average Oriented: Awake, Alert, Oriented times three Insight: poor Judgment: poor Psychosis: Psychotic Perceptions DIAGNOSES: paranoid schizophrenia cannabis use d/o ASSESSMENT:Pt seen today in office stating that the only thing that helps him is ativan b/c "I'm an asshole and I just say stupid shit." Denies that he has schizophrenia or paranoid thoughts stating "I'm just an asshole" again. Refu sing to listen to any of reasons as to why he suffers from paranoid schizophrenia based on his history of treatment on [facility] with myself in the past and family collateral from his father. 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 He has absolutely no insight into his paranoid delusions. Wants to be d/c on ativan and told no b/c it is addictive and that does not treat schizophrenia when is why he has been started on invega sustenna which has been beneficial for his psychosis in the past. Will provide pt with vistaril 50mg q6hr prn anxiety instead of ativan. He is irritable and disruptive today when seen. He continues to have paranoid delusions regarding the [employer] being out to persecute him and the Government being out to get him and says when seen "b/c I know they are." Pt is excluded from group activities due to disruptive behavior in groups. He denies SI/HI. Pt feels safe here. MANAGEMENT PLAN: continue plan Medications: invega 3mg bid invega sustenna 234mg im 05/31 then 156mg IM in 06/03 zyprexa 10mg q4hr prn anxiety/agitation benadryl 50mg q4hr prn anxiety/agitation vistaril 50mg q4hr prn anxiety/agitation TIME SPENT: 30 minutes. Vital Signs Vital Signs Date Time Temp Pulse Resp B/P (MAP) Pulse Ox O2 Delivery O2 Flow Rate FiO2 06/03/19 06:08 98.0 77 18 130/79 (96) Room Air 05/30/19 17:38 96 Current Medications Current Medications Medications (Trade) Dose Ordered Sig/Lorenza Route PRN Reason Start Time Stop Time Status Last Admin Dose Admin Acetaminophen (Tylenol Tab) 650 mg Q6HP PRN PO HEADACHE or DISCOMFORT 05/30/19 14:30 Al Hydrox/Mg Hydrox/Simethicone (Mylanta) 30 ml Q4HP PRN PO HEARTBURN/INDIGESTION 05/30/19 14:30 Cyanocobalamin (Vitamin B12) 1,000 mcg DAILY PO 05/30/19 09:00 06/03/19 08:03 Home Med (Med Rec Complete!) ASDIRECTED XX 05/30/19 08:15 05/30/19 08:14 DC Lorazepam (Ativan) 1 mg Q6H PRN PO anxiety/agitatiom 06/03/19 09:00 06/03/19 09:25 Lorazepam (Ativan) 2 mg Q4HP PRN PO AGITATION 05/29/19 14:45 05/30/19 19:01 DC 05/30/19 19:00 Magnesium Hydroxide (Milk Of Magnesia) 30 ml DAILYPRN PRN PO CONSTIPATION 05/30/19 14:30 Niacin (Niaspan) 1,000 mg QHS PO 05/30/19 21:00 05/30/19 21:14 Nicotine (Nicoderm Cq 21mg) 1 patch DAILYPRN PRN TD NICOTINE WITHDRAWAL 05/30/19 18:30 06/03/19 08:04 Olanzapine (ZyPREXA ZYDIS) 5 mg Q4HP PRN PO AGITATION 05/30/19 14:30 05/31/19 14:49 DC 05/31/19 03:49 Olanzapine (ZyPREXA ZYDIS) 10 mg Q4HP PRN PO ANXIETY/AGITATION 05/31/19 14:45 05/31/19 15:50 Paliperidone (Invega) 3 mg QAM PO 05/30/19 09:00 06/03/19 08:03 Thiamine HCl (Thiamine HCl) 100 mg DAILY PO 05/30/19 09:00 06/03/19 08:03 Trazodone HCl (Desyrel) 50 mg QHSP PRN PO INSOMNIA 05/31/19 21:15 06/01/19 20:12 Allergies Coded Allergies: No Known Allergies (Verified , 03/18/12) DEMARCUS PÉREZ DO Jun 03, 2019 9:49 am
[2019-06-03] MEDS ORDERED: hydrOXYzine 50 MG TAB PO PRN (12:00)
[2019-06-03 16:38] VITALS: BP 140/75
[2019-06-03] MEDS: NIACIN SR (NIASPAN) 500 MG TAB PO SCH (20:51)
[2019-06-04] MEDS: NICOTINE 21MG/24HR 1 EA TRANSDERMAL TD PRN (06:35)
[2019-06-04 06:46] VITALS: BP 130/77
[2019-06-04] MEDS: LORazepam 1 MG TAB PO PRN ×3 (07:32→19:38)
[2019-06-04] MEDS: PALIPERIDONE 3 MG ER TAB (INVEGA) PO SCH (08:07)
[2019-06-04] MEDS: CYANOCOBALAMIN 500 MCG TAB PO SCH (08:07)
[2019-06-04] MEDS: THIAMINE 100 MG TAB PO SCH (08:07)
[2019-06-04 17:57] VITALS: BP 140/86
[2019-06-04] MEDS: NIACIN SR (NIASPAN) 500 MG TAB PO SCH (21:00)
[2019-06-05] MEDS: LORazepam 1 MG TAB PO PRN ×3 (06:19→20:46)
[2019-06-05 06:32] VITALS: BP 145/92
[2019-06-05] MEDS: PALIPERIDONE 3 MG ER TAB (INVEGA) PO SCH (10:59)
[2019-06-05] MEDS: CYANOCOBALAMIN 500 MCG TAB PO SCH (10:59)
[2019-06-05] MEDS: THIAMINE 100 MG TAB PO SCH (10:59)
[2019-06-05 16:34] VITALS: BP 126/69
[2019-06-05] MEDS: traZODone 50 MG TAB PO PRN (20:46)
[2019-06-05] MEDS: NIACIN SR (NIASPAN) 500 MG TAB PO SCH (20:47)
[2019-06-06] MEDS: LORazepam 1 MG TAB PO PRN (05:58)
[2019-06-06 06:36] VITALS: BP 105/70
[2019-06-06] MEDS ORDERED: INVE234I IM (08:43)
[2019-06-06] MEDS ORDERED: HYDR50TA70 PO (08:43)
[2019-06-06] MEDS ORDERED: TRAZ-252 PO (08:43)
--- NOTE | 2019-06-06 08:44 | MHDSPDOC ---
[facility] Discharge Summary Discharge Summary DATE OF ADMISSION: May 30, 2019 at 2:20 pm DATE OF DISCHARGE: Jun 06, 2019 DISCHARGE DIAGNOSES: paranoid schizophrenia cannabis use d/o REASON FOR ADMISSION: Patient is a 34 -year-old , male, with a history of paranoid schizophrenia, noncompliance medications, and follow-up, multiple admits [facility] for psychosis who was brought to Ed by PD after his ex-girlfriend who is living in [place] with their 3y/o son, stating pt sent text to her regarding suicide. Pt in ED stated police came into his home with he was sleeping and handcuffed him and brought him here. Pt per ED, tangential, disorganized, agitated, demanding, and required security to be called for pt to cooperate in ED. Per ED pt talking about the government "stalking" him, out to get him, and cursing about the government. Pt is noncompliant on his outpatient medication and stated in ED that cannabis and natural substances are his medicines. Stated in ED "Now I'm suicidal b/c you brought me here... you bring me in here makes me want to shoot myself in the with a gun... try going thru it you stupid bitch." Pt seen and states he's ok, just something went on between he and his ex- girlfriend as they got into an argument over the phone about their son b/c she doesn't want pt to see him, and girlfriend called the police lying about him s ending a suicidal text. He denies SI/HI. He was started on invega 3mg bid while in the ED awaiting a bed and is therefore calm and less delusional, paranoid, agitated today. Agreeable to taking invega sustenna today. He is more cooperative today than he has been in the past during his treatments on [facility]. CONSULTANTS INVOLVED: none TREATMENT AND PROGRESS ON THE UNIT : Pt was admitted to [facility], seen for psychiatric assessment and started on Invega 3mg bid with good tolerance and b enefit so he was given invega sustenna 234mg im followed by invega sustenna 156mg im 3 days later for med noncompliance and tolerated both well with good benefit in treatment of symptoms. His oral invega was discontinued after invega sustenna injections given. He was provided vistaril 50mg q6hr prn anxiety and trazodone 50mg qhs prn insomnia. Pt found his medications beneficial and tolerated them well. He attended groups daily when he was capable of not being disruptive during his stay. His symptoms of paranoid delusions improved with treatment. On day of discharge he denied depression, anxiety, insomnia, SI/HI, hallucinations, delusions, paranoia. He appeared at his baseline status. He was discharged home with follow-up at [facility]. He felt safe for discharge. DISCHARGE ASSESSMENT: Pt seen today in office stating he's doing good and that he is feeling much more calm and feels ready to go home. He did not endorse paranoid delusions today and was eurhythmic, calm, with linear and logical thought when seen. States he feels the invega sustenna is beneficial for him and he's tolerating it well. He appears at his baseline status. States vistaril is beneficial for his anxiety. Is sleeping well at night. He denies depression, anxiety, insomnia, SI/HI, hallucinations, delusions, paranoia. Feels safe to go home today. MENTAL STATUS EXAMINATION ON DISCHARGE: General Appearance: well groomed, appears stated age, hospital scrubs/clothing Build: average Demeanor: average Eye Contact: good Activity: average Behavior: average, cooperative, calm Speech: clear, spontaneous, reg/rate,rhythm,volume Mood: euthymic, anxious, irritable Mood "I'm good" Affect: appropriate, euthymic, calm Thought Process: logical/linear Thought Content (Delusions): denies SI, HI, AVH, denies paranoia Thought Content (Other): none reported Thought Content (Aggressive): none reported Perception (Hallucinations): none reported Perception (Other): none reported Cognition (Impairment of): none reported Cognition(Intelligence Est.): average Oriented: Awake, Alert, Oriented times three Insight: fair Judgment: fair Psychosis: none reported MEDICATIONS ON DISCHARGE: invega sustenna 234mg im 1qmonthly vistaril 50mg q6hr prn anxiety trazodone 50mg qhs prn insomnia PLAN/FOLLOWUP ARRANGEMENTS: D/c home with follow-up at [facility]. The amount of time spent in the coordination of care for this patient was approximately 30 minutes. Vital Signs/I&Os Vital Signs Date Time Temp Pulse Resp B/P (MAP) Pulse Ox O2 Delivery O2 Flow Rate FiO2 06/06/19 06:36 97.3 112 18 105/70 (82) 06/04/19 06:46 Room Air Medications Scheduled Cyanocobalamin (Vitamin B-12) (Vitamin B-12) 500 Mcg Tablet, 1,000 MCG PO DAILY, (Reported) Niacin (Niacin ER) 1,000 Mg Tab.er.24h, 1,000 MG PO QHS, (Reported) Thiamine Mononitrate (Vit B1) (Vitamin B-1) 100 Mg Tablet, 100 MG PO DAILY, (Reported) Allergies Coded Allergies: No Known Allergies (Verified , 03/18/12) DEMARCUS PÉREZ DO Jun 06, 2019 8:43 am
[2019-06-06] MEDS: CYANOCOBALAMIN 500 MCG TAB PO SCH (09:05)
[2019-06-06] MEDS: PALIPERIDONE 3 MG ER TAB (INVEGA) PO SCH (09:05)
[2019-06-06] MEDS: THIAMINE 100 MG TAB PO SCH (09:05)
== END 2019-06-06 11:10 | disposition home or self-care (01) | DRG 750 ==
LOC: M ED 12:50 → M ED INP 05-30 14:20 → M PSY 05-30 17:38
PROVIDERS: ADMIT Psychiatry & Neurology Addiction Medicine; ATTEND Psychiatry & Neurology Psychiatry
DX: F20.0 Paranoid schizophrenia (principal); Z91.14 Patient's other noncompliance with medication regimen; R45.851 Suicidal ideations; F12.90 Cannabis use, unspecified, uncomplicated; Z79.899 Other long term (current) drug therapy

== ENCOUNTER 2021-04-11 11:35 | Emergency (ER) | payer MEDICARE, MEDICAID ==
[~2021-04-11] VITALS: Ht 182.9 cm; Wt 90.9 kg
[~2021-04-11 11:35] MED LIST changes: -ATOM40CA PO; +ATOM40CA16 PO; +CYAN500T14 PO; +HYDR50TA70 PO; +INVE234I IM; +NIAC1TAB5 PO; +VITA100T89 PO
[2021-04-11] MEDS ORDERED: ABIL10TA9 PO (11:49)
[2021-04-11] MEDS ORDERED: CELE20TA PO (11:49)
[2021-04-11] MEDS ORDERED: STRA80CA PO (11:49)
[2021-04-11 12:32] LABS: HEMATOCRIT 46.2 % (42.0-52.0); HEMOGLOBIN 15.9 g/dl (13.5-17.5); MEAN CORPUSCULAR HEMOGLOBIN 29.1 pg (27.0-33.0); MEAN CORPUSCULAR HGB CONC 34.4 g/dl (32.0-36.5); MEAN CORPUSCULAR VOLUME 84.6 fl (80.0-96.0); PLATELET COUNT, AUTOMATED 210 10^3/uL (150-450); RED BLOOD COUNT 5.46 10^6/uL (4.30-6.10); WHITE BLOOD COUNT 9.5 10^3/uL (4.0-10.0)
[2021-04-11 12:59] LABS: AMPHETAMINES LEVEL URINE NEGATIVE (NEGATIVE); BARBITURATES URINE NEGATIVE (NEGATIVE); BENZODIAZEPINES URINE NEGATIVE (NEGATIVE); CANNABINOIDS URINE POSITIVE (NEGATIVE); COCAINE METABOLITE URINE NEGATIVE (NEGATIVE)
[2021-04-11 13:00] LABS: METHADONE URINE NEGATIVE (NEGATIVE); OPIATES URINE NEGATIVE (NEGATIVE); PHENCYCLIDINE URINE NEGATIVE (NEGATIVE)
[2021-04-11 13:06] LABS: ALT/SGPT 37 U/L (12-78); BLOOD UREA NITROGEN 13 MG/DL (7-18); CALCIUM LEVEL 8.6 MG/DL (8.5-10.1); CARBON DIOXIDE LEVEL 25 MEQ/L (21-32); CHLORIDE LEVEL 106 MEQ/L (98-107); CREATININE FOR GFR 0.76 MG/DL (0.70-1.30); GLOMERULAR FILTRATION RATE > 60.0 (>60); GLUCOSE, FASTING 106 MG/DL (70-100); POTASSIUM SERUM 3.8 MEQ/L (3.5-5.1); SODIUM LEVEL 138 MEQ/L (136-145)
[2021-04-11 13:07] LABS: ACETAMINOPHEN LEVEL < 2.0 UG/ML (10.0-30.0); ALBUMIN 4.2 GM/DL (3.2-5.2); BILIRUBIN,DIRECT 0.2 MG/DL (0.0-0.2); BILIRUBIN,TOTAL 0.6 MG/DL (0.2-1.0); ETHYL ALCOHOL (ETHANOL) < 0.003 % (0.000-0.010); SALICYLATE LEVEL < 1.7 MG/DL (5.0-30.0); TOTAL PROTEIN 7.6 GM/DL (6.4-8.2)
--- NOTE | 2021-04-11 17:14 | MHIPNPDOC ---
[facility] Progress Note Progress Note DATE OF SERVICE: 04/11/21 HISTORY: Received call from [facility] to present patient for admission. This is a 36-year-old man with a history of schizophrenia. He was last seen by his outpatient doctor on 81 and appeared at that time to have no evidence of psychosis. He states that he has been taking his meds since that time, of note he was positive for marijuana on UDS. It is possible that he may have had decompensated due to marijuana ingestion or possible use of synthetic cannabinoid that may have been laced with his marijuana. Regardless at this time patient appears to be quite psychotic, very disorganized, and would require admission for stabilization and safety. Vital Signs Vital Signs Date Time Temp Pulse Resp B/P (MAP) Pulse Ox O2 Delivery O2 Flow Rate FiO2 04/11/21 15:26 98.7 98 16 140/93 (109) 98 04/11/21 11:46 Room Air Laboratory Data 24H Labs Laboratory Tests 2 04/11/21 12:01: Nucleated Red Blood Cells % (auto) 0.0, Anion Gap 7L, Glomerular Filtration Rate > 60.0, Calcium Level 8.6, Total Bilirubin 0.6, Direct Bilirubin 0.2, Aspartate Amino Transf (AST/SGOT) 20, Alanine Aminotransferase (ALT/SGPT) 37, Alkaline Phosphatase 59, Total Protein 7.6, Albumin 4.2, Albumin/Globulin Ratio 1.2, Thyroid Stimulating Hormone (TSH) 1.850, Salicylates Level < 1.7L, Urine Opiates Screen NEGATIVE, Urine Methadone Screen NEGATIVE, Acetaminophen Level < 2.0L, Urine Barbiturates Screen NEGATIVE, Urine Phencyclidine Screen NEGATIVE, Urine Amphetamines Screen NEGATIVE, Urine Benzodiazepines Screen NEGATIVE, Urine Cocaine Metabolite Screen NEGATIVE, Urine Cannabinoids Screen POSITIVEH, Ethyl Alcohol Level < 0.003 CBC/BMP Laboratory Tests 04/11/21 12:01 Allergies Coded Allergies: No Known Allergies (Verified , 03/18/12) VICKY LÓPEZ MD Apr 11, 2021 17:14
[2021-04-11] MEDS ORDERED: LORazepam 1 MG TAB PO ONE (18:35)
[2021-04-11] MEDS ORDERED: NICOTINE 21MG/24HR 1 EA TRANSDERMAL TD ONE (18:50)
--- NOTE | 2021-04-11 19:07 | ECGEPIP ---
[facility] - ED Test Date: 2021-04-11 Pat Name: DANE HARRIS Department: Room: - Gender: Male Medical Insurance Clerk: LENORA : 1985 Requested By: Anthony Walton Order Number: [id number] Reading MD: [place] Interiano Measurements Intervals [place] Rate: 68 P: 50 [place]: 150 QRS: 64 QRSD: 102 T: 61 QT: 376 QTc: 399 Interpretive Statements Normal sinus rhythm Minimal voltage criteria for LVH, may be normal variant ( Sokolow-Abraham ) Nonspecific T wave abnormality Electronically Signed on 04-11-2021 19:07:38 EDT by Argentina Interiano
[2021-04-12] MEDS ORDERED: HOME MED LIST COMPLETE! XX SCH (08:15)
[2021-04-12] MEDS ORDERED: LORazepam 2 MG TAB PO STA (08:55)
[2021-04-12 09:18] LABS: RSV AMPLIFICATION NEGATIVE (NEGATIVE)
[2021-04-12 19:13] VITALS: BP 143/94
== END 2021-04-12 19:18 | disposition short-term general hospital (02) ==
LOC: M ED 11:35
DX: F25.0 Schizoaffective disorder, bipolar type (principal); F22 Delusional disorders; F12.10 Cannabis abuse, uncomplicated; F17.200 Nicotine dependence, unspecified, uncomplicated

== ENCOUNTER 2021-08-23 09:58 | Emergency (ER) | payer MEDICARE, MEDICAID, OTHER ==
[~2021-08-23] VITALS: Ht 180.3 cm; Wt 88.8 kg
[~2021-08-23 09:58] MED LIST changes: +ABIL10TA9 PO; +CELE20TA PO; -HALO5TA PO; +HALO5TAB33 PO; +STRA80CA PO
[2021-08-23 10:26] VITALS: BP 137/74
[2021-08-23] MEDS ORDERED: HALO10TA20 (10:28)
[2021-08-23] MEDS ORDERED: CitaloPRAM (CeleXA) 20 MG TAB PO ONE (11:55)
[2021-08-23] MEDS ORDERED: cloNIDine 0.1MG TABLET PO ONE (11:55)
[2021-08-23] MEDS ORDERED: HALO10TA2 PO (11:56)
[2021-08-23] MEDS ORDERED: CELE20TA PO (11:56)
[2021-08-23] MEDS ORDERED: CLONI1TA PO (11:56)
== END 2021-08-23 12:22 | disposition home or self-care (01) ==
LOC: M ED 09:58
DX: Z76.0 Encounter for issue of repeat prescription (principal); F31.9 Bipolar disorder, unspecified

== ENCOUNTER 2022-09-17 09:03 | Inpatient (IN) | payer MEDICARE, MEDICAID ==
[~2022-09-17] VITALS: Ht 182.9 cm; Wt 92.2 kg
[~2022-09-17 09:03] MED LIST changes: -BENZ-52 PO; +BENZ1TAB5 PO; +CLONI1TA PO; +HALO10TA2 PO; +HALO10TA20; +OMEP40CA4 PO; +SUCR1TA PO
[2022-09-17] MEDS ORDERED: OLANZapine ORAL DISINTEGRATING TAB 5MG PO ONE (09:40)
[2022-09-17 09:56] LABS: HEMATOCRIT 46.5 % (42.0-52.0); HEMOGLOBIN 16.2 g/dl (13.5-17.5); MEAN CORPUSCULAR HEMOGLOBIN 29.5 pg (27.0-33.0); MEAN CORPUSCULAR HGB CONC 34.8 g/dl (32.0-36.5); MEAN CORPUSCULAR VOLUME 84.5 fl (80.0-96.0); PLATELET COUNT, AUTOMATED 284 10^3/uL (150-450); WHITE BLOOD COUNT 10.8 10^3/uL (4.0-10.0)
[2022-09-17 10:18] LABS: AMPHETAMINES LEVEL URINE NEGATIVE (NEGATIVE); BARBITURATES URINE NEGATIVE (NEGATIVE); BENZODIAZEPINES URINE NEGATIVE (NEGATIVE); CANNABINOIDS URINE NEGATIVE (NEGATIVE); COCAINE METABOLITE URINE NEGATIVE (NEGATIVE); METHADONE URINE NEGATIVE (NEGATIVE); OPIATES URINE NEGATIVE (NEGATIVE); PHENCYCLIDINE URINE NEGATIVE (NEGATIVE)
[2022-09-17 10:19] LABS: ETHYL ALCOHOL (ETHANOL) 0.006 % (0.000-0.010); SALICYLATE LEVEL < 3.0 MG/DL (<30)
[2022-09-17 10:20] LABS: ACETAMINOPHEN LEVEL < 2.0 UG/ML (10.0-20.0); ALBUMIN 4.5 G/DL (3.2-5.2); ALKALINE PHOSPHATASE 62 U/L (46-116); ALT/SGPT 46 U/L (7.0-40); AST/SGOT 24 U/L (<34); BILIRUBIN,DIRECT 0.2 MG/DL (<0.4); BILIRUBIN,TOTAL 0.6 MG/DL (0.3-1.2); BLOOD UREA NITROGEN 7 MG/DL (9-23); CARBON DIOXIDE LEVEL 24 MMOL/L (20-31); CHLORIDE LEVEL 103 MMOL/L (98-107); CREATININE FOR GFR 0.68 MG/DL (0.70-1.30); GLOMERULAR FILTRATION RATE > 60.0 (>60); GLUCOSE, FASTING 99 MG/DL (60-100); POTASSIUM SERUM 3.8 MMOL/L (3.5-5.1); SODIUM LEVEL 137 MMOL/L (136-145); TOTAL PROTEIN 7.4 G/DL (5.7-8.2)
[2022-09-17 10:22] LABS: THYROID STIMULATING HORMONE 1.748 uIU/ML (0.55-4.78)
[2022-09-17] MEDS ORDERED: HOME MED LIST COMPLETE! XX SCH (16:35)
[2022-09-18] MEDS ORDERED: OLANZapine ORAL DISINTEGRATING TAB 5MG PO SCH (09:00)
[2022-09-18] MEDS ORDERED: LORazepam 2 MG TAB PO STA (09:43)
[2022-09-18] MEDS ORDERED: OLANZapine INTRAMUSCULAR 10MG VIAL IM ONE (09:45)
[2022-09-19] MEDS ORDERED: IBUPROFEN 400MG TAB PO PRN (11:45)
[2022-09-19] MEDS ORDERED: MOM 30ML SUSPENSION UDC PO PRN (11:45)
[2022-09-19] MEDS ORDERED: MAALOX 30 ML SUSP *UDC PO PRN (11:45)
[2022-09-19] MEDS: NICOTINE 21MG/24HR 1 EA TRANSDERMAL TD SCH (13:07)
[2022-09-19] MEDS: LORazepam 1 MG TAB PO PRN (16:46)
[2022-09-19 17:27] VITALS: BP 143/97
[2022-09-20] MEDS: LORazepam 1 MG TAB PO PRN ×3 (00:24→15:47)
[2022-09-20 06:20] VITALS: BP 111/64
[2022-09-20] MEDS ORDERED: NICOTINE 14 MG/24 HR TRANSDERMAL TD SCH (09:00)
[2022-09-20] MEDS ORDERED: NICOTINE 7 MG/24 HR TRANSDERMAL TD SCH (09:00)
[2022-09-20] MEDS: NICOTINE 21MG/24HR 1 EA TRANSDERMAL TD SCH (09:36)
[2022-09-20] MEDS: PALIPERIDONE 3MG ER TAB (INVEGA) PO SCH ×2 (10:47→20:13)
[2022-09-20 16:49] VITALS: BP 124/82
[2022-09-21 06:39] LABS: BASO # 0.1 10^3/uL (0.0-0.2); BASO % 0.6 % (0.0-1.0); EOS # 0.5 10^3/uL (0.0-0.5); EOS % 5.6 % (0.0-3.0); HEMOGLOBIN 13.8 g/dl (13.5-17.5); LYMPH # 3.2 10^3/uL (1.5-5.0); LYMPH % 36.6 % (24.0-44.0); MEAN CORPUSCULAR HEMOGLOBIN 29.4 pg (27.0-33.0); MEAN CORPUSCULAR HGB CONC 34.5 g/dl (32.0-36.5); MEAN CORPUSCULAR VOLUME 85.3 fl (80.0-96.0); MONO # 0.7 10^3/uL (0.0-0.8); MONO % 8.4 % (2.0-8.0); NEUTROPHILS # 4.2 10^3/uL (1.5-8.5); NEUTROPHILS % 48.5 % (36.0-66.0); PLATELET COUNT, AUTOMATED 237 10^3/uL (150-450); RED BLOOD COUNT 4.69 10^6/uL (4.30-6.10); WHITE BLOOD COUNT 8.7 10^3/uL (4.0-10.0)
[2022-09-21 06:41] VITALS: BP 134/84
[2022-09-21 07:08] LABS: CHOLESTEROL RISK RATIO 6.76 (<5); HDL CHOLESTEROL 26.3 MG/DL (>40); LDL CHOLESTEROL 137.5 MG/DL (<100)
[2022-09-21] MEDS: PALIPERIDONE 3MG ER TAB (INVEGA) PO SCH ×2 (08:46→21:00)
[2022-09-21] MEDS: NICOTINE 21MG/24HR 1 EA TRANSDERMAL TD SCH (08:47)
[2022-09-21] MEDS: LORazepam 1 MG TAB PO PRN ×2 (08:49→19:12)
[2022-09-21 16:21] VITALS: BP 128/80
[2022-09-22 06:23] VITALS: BP 122/73
[2022-09-22] MEDS: NICOTINE 21MG/24HR 1 EA TRANSDERMAL TD SCH (09:12)
[2022-09-22] MEDS: PALIPERIDONE 3MG ER TAB (INVEGA) PO SCH ×2 (09:12→20:02)
[2022-09-22] MEDS: LORazepam 1 MG TAB PO PRN (09:16)
[2022-09-22 18:31] VITALS: BP 143/77
[2022-09-22] MEDS: traZODone 50 MG TAB PO PRN (20:02)
[2022-09-23 06:03] VITALS: BP 122/80
[2022-09-23] MEDS: PALIPERIDONE 3MG ER TAB (INVEGA) PO SCH ×2 (09:57→20:16)
[2022-09-23] MEDS: NICOTINE 21MG/24HR 1 EA TRANSDERMAL TD SCH (09:57)
[2022-09-23] MEDS ORDERED: PALIPERIDONE PAL 234MG/1.5ML INJ (INVEGA)(FREE PSY INPT ONLY) IM ONE (14:00)
[2022-09-23 18:15] VITALS: BP 137/80
[2022-09-23] MEDS: traZODone 50 MG TAB PO PRN (20:16)
[2022-09-24 06:18] VITALS: BP 144/77
[2022-09-24] MEDS: PALIPERIDONE 3MG ER TAB (INVEGA) PO SCH ×2 (08:36→20:25)
[2022-09-24] MEDS: NICOTINE 21MG/24HR 1 EA TRANSDERMAL TD SCH (08:37)
[2022-09-24 19:15] VITALS: BP 129/83
[2022-09-24] MEDS: LORazepam 1 MG TAB PO PRN (23:48)
[2022-09-25 06:46] VITALS: BP 135/62
[2022-09-25] MEDS: PALIPERIDONE 3MG ER TAB (INVEGA) PO SCH ×2 (09:42→20:11)
[2022-09-25] MEDS: NICOTINE 21MG/24HR 1 EA TRANSDERMAL TD SCH (09:43)
[2022-09-25] MEDS: LORazepam 1 MG TAB PO PRN (15:08)
[2022-09-25 18:04] VITALS: BP 142/88
[2022-09-26 06:19] VITALS: BP 130/70
[2022-09-26] MEDS: PALIPERIDONE 3MG ER TAB (INVEGA) PO SCH ×2 (09:42→20:04)
[2022-09-26] MEDS: NICOTINE 21MG/24HR 1 EA TRANSDERMAL TD SCH (09:42)
[2022-09-26] MEDS: LORazepam 1 MG TAB PO PRN ×2 (10:37→17:08)
[2022-09-26 18:38] VITALS: BP 139/89
[2022-09-26] MEDS: traZODone 50 MG TAB PO PRN (20:03)
[2022-09-27 06:42] VITALS: BP 112/67
[2022-09-27] MEDS: PALIPERIDONE 3MG ER TAB (INVEGA) PO SCH ×2 (08:43→20:45)
[2022-09-27] MEDS: NICOTINE 21MG/24HR 1 EA TRANSDERMAL TD SCH (08:44)
[2022-09-27] MEDS: LORazepam 1 MG TAB PO PRN (15:18)
[2022-09-27 18:28] VITALS: BP 134/86
[2022-09-28 06:05] VITALS: BP 124/96
[2022-09-28] MEDS ORDERED: PALIPERIDONE PAL 156MG/1ML INJ(INVEGA)(FREE PSY INPT ONLY) IM ONE (09:00)
[2022-09-28] MEDS: NICOTINE 21MG/24HR 1 EA TRANSDERMAL TD SCH (09:39)
[2022-09-28] MEDS: PALIPERIDONE 3MG ER TAB (INVEGA) PO SCH ×2 (09:39→21:13)
[2022-09-28 16:25] VITALS: BP 126/75
[2022-09-28] MEDS: LORazepam 1 MG TAB PO PRN (16:39)
[2022-09-29 06:32] VITALS: BP 120/75
[2022-09-29] MEDS: NICOTINE 21MG/24HR 1 EA TRANSDERMAL TD SCH (08:24)
[2022-09-29] MEDS: PALIPERIDONE 3MG ER TAB (INVEGA) PO SCH ×2 (08:24→21:18)
[2022-09-29] MEDS: LORazepam 1 MG TAB PO PRN (12:11)
[2022-09-29 17:07] VITALS: BP 134/83
[2022-09-30 06:45] VITALS: BP 129/68
[2022-09-30] MEDS: NICOTINE 21MG/24HR 1 EA TRANSDERMAL TD SCH (09:31)
[2022-09-30] MEDS: PALIPERIDONE 3MG ER TAB (INVEGA) PO SCH (09:31)
[2022-09-30 17:01] VITALS: BP 136/96
[2022-09-30] MEDS: traZODone 50 MG TAB PO PRN (20:01)
[2022-09-30] MEDS: LORazepam 1 MG TAB PO PRN (20:02)
[2022-10-01 06:40] VITALS: BP 114/67
[2022-10-01] MEDS: NICOTINE 21MG/24HR 1 EA TRANSDERMAL TD SCH (09:48)
[2022-10-01] MEDS ORDERED: HALO5TAB33 PO (12:53)
[2022-10-01] MEDS ORDERED: NICO21PAT TD (12:53)
[2022-10-01] MEDS ORDERED: INVE234I IM (12:56)
[2022-10-01] MEDS ORDERED: BENZ0.5T23 PO (12:56)
[2022-10-01 16:15] VITALS: BP 130/69
== END 2022-10-01 17:08 | disposition home or self-care (01) | DRG 885 ==
LOC: M ED 09:03 → M ED INP 09-19 11:45 → M PSY 09-19 16:13
PROVIDERS: ADMIT Student in an Organized Health Care Education/Training Program; ATTEND Psychiatry & Neurology Psychiatry
DX: F20.0 Paranoid schizophrenia (principal); F12.90 Cannabis use, unspecified, uncomplicated; F17.200 Nicotine dependence, unspecified, uncomplicated

== ENCOUNTER → 2022-12-08 | Outpatient (REF) | payer MEDICARE, MEDICAID ==
[~2022-12-08] MED LIST changes: +BENZ0.5T23 PO; +NICO21PAT TD
[2022-12-08 13:31] LABS: BASO # 0.1 10^3/uL (0.0-0.2); BASO % 0.6 % (0.0-1.0); EOS # 0.4 10^3/uL (0.0-0.5); EOS % 3.9 % (0.0-3.0); HEMATOCRIT 47.8 % (42.0-52.0); HEMOGLOBIN 16.3 g/dl (13.5-17.5); LYMPH # 3.1 10^3/uL (1.5-5.0); LYMPH % 30.1 % (24.0-44.0); MEAN CORPUSCULAR HEMOGLOBIN 29.2 pg (27.0-33.0); MEAN CORPUSCULAR HGB CONC 34.1 g/dl (32.0-36.5); MEAN CORPUSCULAR VOLUME 85.7 fl (80.0-96.0); MONO # 0.6 10^3/uL (0.0-0.8); MONO % 5.9 % (2.0-8.0); NEUTROPHILS # 6.1 10^3/uL (1.5-8.5); NEUTROPHILS % 58.9 % (36.0-66.0); PLATELET COUNT, AUTOMATED 228 10^3/uL (150-450); RED BLOOD COUNT 5.58 10^6/uL (4.30-6.10); WHITE BLOOD COUNT 10.4 10^3/uL (4.0-10.0)
[2022-12-08 13:56] LABS: TOTAL 25(OH) VITAMIN D 21.4 NG/ML (20.0-100.0)
[2022-12-08 13:57] LABS: ALKALINE PHOSPHATASE 57 U/L (46-116); ALT/SGPT 40 U/L (7.0-40); AST/SGOT 20 U/L (<34); BILIRUBIN,TOTAL 0.6 MG/DL (0.3-1.2); BLOOD UREA NITROGEN 13 MG/DL (9-23); CALCIUM LEVEL 9.3 MG/DL (8.5-10.1); CARBON DIOXIDE LEVEL 26 MMOL/L (20-31); CHLORIDE LEVEL 104 MMOL/L (98-107); CHOLESTEROL LEVEL 203 MG/DL (<200); CHOLESTEROL RISK RATIO 6.95 (<5); CREATININE FOR GFR 0.65 MG/DL (0.70-1.30); GLOMERULAR FILTRATION RATE > 60.0 (>60); GLUCOSE, FASTING 122 MG/DL (60-100); HDL CHOLESTEROL 29.2 MG/DL (>40); NON-HDL-C 173.8 MG/DL; POTASSIUM SERUM 4.5 MMOL/L (3.5-5.1); SODIUM LEVEL 139 MMOL/L (136-145); THYROID STIMULATING HORMONE 1.381 uIU/ML (0.55-4.78); TOTAL PROTEIN 7.1 G/DL (5.7-8.2); TRIGLYCERIDES LEVEL 204 MG/DL (<150)
[2022-12-08 14:44] LABS: HEMOGLOBIN A1c 5.1 % (4.0-6.0)
== END ==
LOC: M LAB REF 12:17
PROVIDERS: ATTEND Nurse Practitioner Family
DX: Z13.228 Encounter for screening for other metabolic disorders (principal)

== ENCOUNTER → 2023-08-03 | Outpatient (REF) | payer MEDICARE, MEDICAID ==
[~2023-08-03] MED LIST changes: +BENZ0.5T2 PO; -BENZ0.5T23 PO
[2023-08-03 18:06] LABS: CHOLESTEROL RISK RATIO 6.23 (<5); HDL CHOLESTEROL 32.9 MG/DL (>40); LDL CHOLESTEROL 143.9 MG/DL (<100); NON-HDL-C 172.1 MG/DL
== END ==
LOC: M LAB REF 16:31
PROVIDERS: ATTEND Nurse Practitioner Family
DX: R79.89 Other specified abnormal findings of blood chemistry (principal)

== ENCOUNTER → 2023-11-09 | Outpatient (REF) | payer MEDICARE, MEDICAID ==
[2023-11-09 17:48] LABS: Trichomonas vaginalis (AMP) NOT DETECTED (NEGATIVE)
[2023-11-09 18:11] LABS: GC DNA AMPLIFICATION NEGATIVE (NEGATIVE)
== END ==
LOC: M LAB REF 16:16
PROVIDERS: ATTEND Nurse Practitioner Family
DX: Z72.89 Other problems related to lifestyle (principal); Z11.3 Encounter for screening for infections with a predominantly sexual mode of transmission

== ENCOUNTER → 2023-12-29 | Outpatient (REF) | payer MEDICARE, MEDICAID ==
[2023-12-29 18:03] LABS: APPEARANCE, URINE HAZY (CLEAR); BACTERIA, URINE AUTO NEGATIVE (NEGATIVE); BILIRUBIN, URINE AUTO NEGATIVE (NEGATIVE); BLOOD, URINE BLOOD NEGATIVE (NEGATIVE); CALCIUM OXALATE CRYSTALS SMALL; COLOR, URINE YELLOW (YELLOW); GLUCOSE, URINE (UA) AUTO NEGATIVE (NEGATIVE); KETONE, URINE AUTO NEGATIVE (NEGATIVE); LEUKOCYTE ESTERASE, URINE AUTO NEGATIVE (NEGATIVE); MUCUS, URINE SMALL (NEGATIVE); NITRITE, URINE AUTO NEGATIVE (NEGATIVE); PROTEIN, URINE AUTO NEGATIVE (NEGATIVE); RBC, URINE AUTO 0 /HPF (0-3); SPECIFIC GRAVITY URINE AUTO 1.018 (1.002-1.035); SQUAMOUS EPITHELIAL CELL UR AU 0 /HPF (0-6); UROBILINOGEN, URINE AUTO 0.2 mg/dL (0.0-2.0); WBC, URINE AUTO 0 /HPF (0-3)
== END ==
LOC: M SMT 17:24
PROVIDERS: ATTEND Nurse Practitioner Family
DX: R36.1 Hematospermia (principal)

== ENCOUNTER → 2024-01-25 | Outpatient (CLI) | payer MEDICARE, MEDICAID | LOC: M RAD 06:47 | PROVIDERS: ATTEND Nurse Practitioner Family | DX: R36.1 Hematospermia (principal); N50.3 Cyst of epididymis; Z79.899 Other long term (current) drug therapy; R10.2 Pelvic and perineal pain ==

== ENCOUNTER → 2024-02-22 | Outpatient (CLI) | payer MEDICARE, MEDICAID | LOC: M EKG 14:15 | PROVIDERS: ATTEND Nurse Practitioner Psychiatric/Mental Health | DX: F20.9 Schizophrenia, unspecified (principal) ==

== ENCOUNTER → 2024-07-07 | Outpatient (CLI) | payer MEDICARE, MEDICAID ==
[~2024-07-07] MED LIST changes: -GEOD40CA13 PO; +ZIPR40CA27 PO
== END ==
LOC: M SOG 07:51
PROVIDERS: ATTEND Physician Assistant
DX: M25.511 Pain in right shoulder (principal)

== ENCOUNTER → 2024-12-22 | Outpatient (CLI) | payer MEDICARE, MEDICAID ==
[2024-12-22 14:17] LABS: HEMATOCRIT 43.5 % (42.0-52.0); HEMOGLOBIN 15.2 g/dl (13.5-17.5); MEAN CORPUSCULAR HGB CONC 34.9 g/dl (32.0-36.5); MEAN CORPUSCULAR VOLUME 82.9 fl (80.0-96.0); PLATELET COUNT, AUTOMATED 240 10^3/uL (150-450); RED BLOOD COUNT 5.25 10^6/uL (4.30-6.10); WHITE BLOOD COUNT 7.8 10^3/uL (4.0-10.0)
[2024-12-22 14:53] LABS: ALBUMIN 4.5 G/DL (3.2-5.2); ALKALINE PHOSPHATASE 70 U/L (40-129); ALT/SGPT 29 U/L (7.0-40); AST/SGOT 17 U/L (<34); BILIRUBIN,DIRECT 0.3 MG/DL (<0.4); BILIRUBIN,TOTAL 0.9 MG/DL (0.3-1.2); BLOOD UREA NITROGEN 11 MG/DL (9-23); CALCIUM LEVEL 9.3 MG/DL (8.5-10.1); CARBON DIOXIDE LEVEL 29 MMOL/L (20-31); CHLORIDE LEVEL 105 MMOL/L (98-107); CHOLESTEROL LEVEL 174 MG/DL (<200); CHOLESTEROL RISK RATIO 5.54 (<5); CREATININE FOR GFR 0.69 MG/DL (0.70-1.30); GLOMERULAR FILTRATION RATE > 90.0 (>60); GLUCOSE, FASTING 91 MG/DL (60-100); HDL CHOLESTEROL 31.4 MG/DL (>40); LDL CHOLESTEROL 120.4 MG/DL (<100); NON-HDL-C 142.6 MG/DL; POTASSIUM SERUM 4.2 MMOL/L (3.5-5.1); SODIUM LEVEL 142 MMOL/L (136-145); TOTAL PROTEIN 7.6 G/DL (5.7-8.2); TRIGLYCERIDES LEVEL 111 MG/DL (<150)
[2024-12-22 14:55] LABS: THYROID STIMULATING HORMONE 1.989 uIU/ML (0.55-4.78)
[2024-12-22 15:19] LABS: HEMOGLOBIN A1c 5.3 % (4.0-6.0)
== END ==
LOC: M LAB 13:52
PROVIDERS: ATTEND Registered Nurse
DX: F20.9 Schizophrenia, unspecified (principal); Z79.899 Other long term (current) drug therapy

== ENCOUNTER → 2025-08-01 | Outpatient (REF) | payer MEDICARE, MEDICAID ==
[~2025-08-01] MED LIST changes: -ABIL400I IM; +ARIP400S IM; -DIPH50CA PO; +DIPH50CA31 PO
[2025-08-01 17:05] LABS: ALT/SGPT 34 U/L (7.0-40); AST/SGOT 19 U/L (<34); CALCIUM LEVEL 10.0 MG/DL (8.5-10.1); CARBON DIOXIDE LEVEL 27 MMOL/L (20-31); CHLORIDE LEVEL 103 MMOL/L (98-107); CHOLESTEROL LEVEL 268 MG/DL (<200); CHOLESTEROL RISK RATIO 8.09 (<5); CREATININE FOR GFR 0.69 MG/DL (0.70-1.30); GLOMERULAR FILTRATION RATE > 90.0 (>60); LDL CHOLESTEROL 210.7 MG/DL (<100); NON-HDL-C 234.9 MG/DL; POTASSIUM SERUM 4.9 MMOL/L (3.5-5.1); SODIUM LEVEL 140 MMOL/L (136-145); TRIGLYCERIDES LEVEL 121 MG/DL (<150)
[2025-08-01 17:09] LABS: BASO # 0.1 10^3/uL (0.0-0.2); BASO % 0.9 % (0.0-1.0); EOS # 0.3 10^3/uL (0.0-0.5); EOS % 3.2 % (0.0-3.0); LYMPH # 2.8 10^3/uL (1.5-5.0); LYMPH % 33.4 % (24.0-44.0); MONO # 0.7 10^3/uL (0.0-0.8); MONO % 7.9 % (2.0-8.0); NEUTROPHILS # 4.6 10^3/uL (1.5-8.5); NEUTROPHILS % 54.4 % (36.0-66.0); PLATELET COUNT, AUTOMATED 310 10^3/uL (150-450); TOTAL 25(OH) VITAMIN D 27.6 NG/ML (20.0-100.0)
[2025-08-01 17:42] LABS: ESTIMATED AVERAGE GLUCOSE 105.0 MG/DL (60-110)
== END ==
LOC: M LAB REF 16:17
PROVIDERS: ATTEND Student in an Organized Health Care Education/Training Program
DX: Z00.00 Encounter for general adult medical examination without abnormal findings (principal); Z68.30 Body mass index [BMI] 30.0-30.9, adult; E55.9 Vitamin D deficiency, unspecified; E78.00 Pure hypercholesterolemia, unspecified; Z79.899 Other long term (current) drug therapy